=== PATIENT | male | born 1990 | race Hispanic/Latino ===

== ENCOUNTER 2018-10-04 01:02 | Emergency (ER) | payer SELFPAY ==
[2018-10-04] MEDS ORDERED: DEXAMETHASONE 4 MG TAB ONE (01:48)
[2018-10-04] MEDS ORDERED: WATER FOR INJ,STERILE 10 ML ONE (01:49)
[2018-10-04] MEDS ORDERED: CEFTRIAXONE 1000 MG/VIAL ONE (01:49)
[2018-10-04] MEDS ORDERED: HYDROCODONE/APAP 10/325 TAB ONE (01:49)
--- NOTE | 2018-10-04 02:22 | EDPHYS ---
Physician Documentation [facility] Name: Zeyad Alfonso Age: 28 yrs Sex: Male : 1990 Arrival Date: 10/04/2018 Time: 01:05 Bed 13 Private MD: ED Physician Domo Bertrand HPI: 10/04 01:56 This 28 yrs old Male presents to ER via Ambulatory with complaints of Ear Pain.snw 01:56 The patient presents with pain, that is acute. The complaints affect the left ear. snw Onset: The symptoms/episode began/occurred suddenly, 1 week(s) ago, and became worse today, and became persistent. Associated signs and symptoms: The patient has no apparent associated signs or symptoms. Severity of symptoms: At their worst the symptoms were moderate. The patient has not experienced similar symptoms in the past. The patient has not recently seen a physician. Historical: - Allergies: 01:05 No Known Allergies; cc3 - PMHx: 01:05 Hypertension; cc3 - PSHx: 01:05 jaw surgery; cc3 - Immunization history:: Adult Immunizations unknown. - Social history:: Smoking status: Patient uses tobacco products, smokes one pack cigarettes per day. - Ebola Screening: : No symptoms or risks identified at this time. ROS: 01:56 Constitutional: Negative for fever, chills, and weight loss, Eyes: Negative for injury, snw pain, redness, and discharge, ENT: Negative for injury and discharge, Positive for severe left ear pain Neck: Negative for injury, pain, and swelling, Cardiovascular: Negative for chest pain, palpitations, and edema, Respiratory: Negative for shortness of breath, cough, wheezing, and pleuritic chest pain, Abdomen/GI: Negative for abdominal pain, nausea, vomiting, diarrhea, and constipation, Back: Negative for injury and pain, : Negative for injury, bleeding, discharge, and swelling, MS/Extremity: Negative for injury and deformity, Skin: Negative for injury, rash, and discoloration, Neuro: Negative for headache, weakness, numbness, tingling, and seizure. Exam: 01:56 Constitutional: This is a well developed, well nourished patient who is awake, alert, snw and in no acute distress. Head/Face: Normocephalic, atraumatic. Eyes: Pupils equal round and reactive to light, extra-ocular motions intact. Lids and lashes normal. Conjunctiva and sclera are non-icteric and not injected. Cornea within normal limits. Periorbital areas with no swelling, redness, or edema. Neck: Trachea midline, no thyromegaly or masses palpated, and no cervical lymphadenopathy. Supple, full range of motion without nuchal rigidity, or vertebral point tenderness. No Meningismus. Chest/axilla: Normal chest wall appearance and motion. Nontender with no deformity. No lesions are appreciated. Cardiovascular: Regular rate and rhythm with a normal S1 and S2. No gallops, murmurs, or rubs. Normal PMI, no JVD. No pulse deficits. Respiratory: Lungs have equal breath sounds bilaterally, clear to auscultation and percussion. No rales, rhonchi or wheezes noted. No increased work of breathing, no retractions or nasal flaring. Abdomen/GI: Soft, non-tender, with normal bowel sounds. No distension or tympany. No guarding or rebound. No evidence of tenderness throughout. Back: No spinal tenderness. No costovertebral tenderness. Full range of motion. Skin: Warm, dry with normal turgor. Normal color with no rashes, no lesions, and no evidence of cellulitis. MS/ Extremity: Pulses equal, no cyanosis. Neurovascular intact. Full, normal range of motion. Neuro: Awake and alert, GCS 15, oriented to person, place, time, and situation. Cranial nerves II-XII grossly intact. Motor strength 5/5 in all extremities. Sensory grossly intact. Cerebellar exam normal. Normal gait. 01:56 ENT: External ear(s): are unremarkable, Ear canal(s): are normal, TM's: erythema, that is marked, on the left, erythema to right TM moderate, Nose: is normal, Mouth: is normal, Posterior pharynx: is normal, Voice: is normal. Vital Signs: 01:05 BP 166 / 105; Pulse 87; Resp 17 S; Temp 99(O); Pulse Ox 98% on R/A; Weight 89.36 kg cc3 (R); Height 5 ft. 7 in. (170.18 cm) (R); Pain 10/10; 02:15 BP 147 / 107; Pulse 72; Resp 18 S; Pulse Ox 98% on R/A; cc3 01:05 Body Mass Index 30.85 (89.36 kg, 170.18 cm) cc3 MDM: 01:23 Patient medically screened. snw 02:27 Data reviewed: vital signs, nurses notes. Data interpreted: Pulse oximetry: on room air snw is 98 %. Interpretation: normal. Counseling: I had a detailed discussion with the patient and/or guardian regarding: the historical points, exam findings, and any diagnostic results supporting the discharge/admit diagnosis, the need for outpatient follow up, to return to the emergency department if symptoms worsen or persist or if there are any questions or concerns that arise at home. Special discussion: Based on the history and exam findings, there is no indication for further emergent testing or inpatient evaluation. I discussed with the patient/guardian the need to see the ENT specialist for further evaluation of the symptoms. Administered Medications: 01:40 Drug: Motley 10 mg-325 mg 1 tabs Route: PO; cc3 02:30 Follow up: Response: No adverse reaction; Pain is decreased cc3 01:40 Drug: Decadron 8 mg Route: PO; cc3 02:30 Follow up: Response: No adverse reaction cc3 01:45 Drug: Rocephin (cefTRIAXone) 1 grams Route: IM; Site: right gluteus; cc3 02:30 Follow up: Response: No adverse reaction cc3 Disposition: 07:48 Co-signature as Attending Physician, Domo Bertrand MD I agree with the assessment and wa plan of care. Disposition: 10/04/18 02:22 Discharged to Home. Impression: Acute serous otitis media, bilateral, Essential (primary) hypertension. - Condition is Stable. - Discharge Instructions: Otitis Media, Adult, Hypertension, Managing Your Hypertension. - Prescriptions for Augmentin 875- 125 mg Oral Tablet - take 1 tablet by ORAL route every 12 hours for 10 days; 20 tablet. Diclofenac Sodium 75 mg Oral Tablet, Delayed Release (E.C.) - take 1 tablet by ORAL route 2 times per day; 16 tablet. Ultram 50 mg Oral Tablet - take 1 tablet by ORAL route every 6 hours As needed; 16 tablet. - Work release form, Medication Reconciliation Form, Thank You Letter, Antibiotic Education, Prescription Opioid Use form. - Follow up: Private Physician; When: 2 - 3 days; Reason: Recheck today's complaints, Continuance of care, Re-evaluation by your physician. Follow up: Emergency Department; When: As needed; Reason: Worsening of condition. Signatures: Flor Dee, SHERRY-C BASIC SCIENCES PROFESSOR-Csnw Domo Bertrand MD MD wa Cordel, Charlene cc3 Corrections: (The following items were deleted from the chart) 02:38 02:22 10/04/2018 02:22 Discharged to Home. Impression: Acute serous otitis media, cc3 bilateral; Essential (primary) hypertension. Condition is Stable. Forms are Medication Reconciliation Form, Thank You Letter, Antibiotic Education, Prescription Opioid Use. Follow up: Private Physician; When: 2 - 3 days; Reason: Recheck today's complaints, Continuance of care, Re-evaluation by your physician. Follow up: Emergency Department; When: As needed; Reason: Worsening of condition. snw
--- NOTE | 2018-10-04 02:22 | ER ---
Nurse's Notes [facility] Name: Zeyad Alfonso Age: 28 yrs Sex: Male : 1990 Arrival Date: 10/04/2018 Time: 01:05 Bed 13 Private MD: Diagnosis: Acute serous otitis media, bilateral;Essential (primary) hypertension Presentation: 10/04 01:05 Presenting complaint: Patient states: nontraumatic left ear pain since one week. cc3 Transition of care: patient was not received from another setting of care. Onset of symptoms is unknown. Risk Assessment: Do you want to hurt yourself or someone else? Patient reports no desire to harm self or others. Initial Sepsis Screen: Does the patient meet any 2 criteria? No. Patient's initial sepsis screen is negative. Does the patient have a suspected source of infection? No. Patient's initial sepsis screen is negative. Care prior to arrival: None. 01:05 Method Of Arrival: Ambulatory cc3 01:05 Acuity: JAZ 4 cc3 Triage Assessment: 01:05 General: Appears in no apparent distress. comfortable, Behavior is calm, cooperative, cc3 appropriate for age. Pain: Complains of pain in left ear. Pain: Quality of pain is described as aching. EENT: Reports pain in left ear. Neuro: Level of Consciousness is awake, alert, obeys commands, Oriented to person, place, time, situation, Appropriate for age. Cardiovascular: Denies chest pain, Patient's skin is warm and dry. Respiratory: Airway is patent Respiratory effort is even, unlabored, Respiratory pattern is regular, symmetrical. GI: Abdomen is round non-distended. : No signs and/or symptoms were reported regarding the genitourinary system. Derm: No signs and/or symptoms reported regarding the dermatologic system. Musculoskeletal: Circulation, motion, and sensation intact. Range of motion: intact in all extremities. Historical: - Allergies: 01:05 No Known Allergies; cc3 - PMHx: 01:05 Hypertension; cc3 - PSHx: 01:05 jaw surgery; cc3 - Immunization history:: Adult Immunizations unknown. - Social history:: Smoking status: Patient uses tobacco products, smokes one pack cigarettes per day. - Ebola Screening: : No symptoms or risks identified at this time. Screenin:05 Abuse screen: Denies threats or abuse. Denies injuries from another. Nutritional cc3 screening: No deficits noted. Tuberculosis screening: No symptoms or risk factors identified. Fall Risk Ambulatory Aid- None/Bed Rest/Nurse Assist (0 pts). Gait- Normal/Bed Rest/Wheelchair (0 pts) Mental Status- Oriented to own ability (0 pts). Assessment: 01:05 General: see triage assessment. cc3 02:35 Reassessment: Patient appears in no apparent distress at this time. Patient and/or cc3 family updated on plan of care and expected duration. Pain level reassessed. Patient is alert, oriented x 3, equal unlabored respirations, skin warm/dry/pink. ENIO Ray discharged the patient home with prescription given. No IV cannula in situ. Patient left ER vitally stable and ambulatory. Vital Signs: 01:05 BP 166 / 105; Pulse 87; Resp 17 S; Temp 99(O); Pulse Ox 98% on R/A; Weight 89.36 kg cc3 (R); Height 5 ft. 7 in. (170.18 cm) (R); Pain 10/10; 02:15 BP 147 / 107; Pulse 72; Resp 18 S; Pulse Ox 98% on R/A; cc3 01:05 Body Mass Index 30.85 (89.36 kg, 170.18 cm) cc3 ED Course: 01:05 Patient arrived in ED. es 01:05 Arm band placed on right wrist. Patient notified of wait time. cc3 01:05 Patient has correct armband on for positive identification. Bed in low position. Call cc3 light in reach. Side rails up X 1. Pulse ox on. NIBP on. 01:06 Ernestine Carlisle is Primary Nurse. cc3 01:18 Triage completed. cc3 01:19 Flor Dee FNP-C is PHCP. snw 01:19 Domo Bertrand MD is Attending Physician. snw 02:35 No provider procedures requiring assistance completed. Patient did not have IV access cc3 during this emergency room visit. Administered Medications: 01:40 Drug: Hostetter 10 mg-325 mg 1 tabs Route: PO; cc3 02:30 Follow up: Response: No adverse reaction; Pain is decreased cc3 01:40 Drug: Decadron 8 mg Route: PO; cc3 02:30 Follow up: Response: No adverse reaction cc3 01:45 Drug: Rocephin (cefTRIAXone) 1 grams Route: IM; Site: right gluteus; cc3 02:30 Follow up: Response: No adverse reaction cc3 Outcome: 02:22 Discharge ordered by . margareth 02:35 Discharged to home ambulatory. cc3 02:35 Condition: stable 02:35 Discharge instructions given to patient, Instructed on discharge instructions, follow up and referral plans. medication usage, Demonstrated understanding of instructions, follow-up care, medications, Prescriptions given X 3. 02:38 Patient left the ED. cc3 Signatures: Flor Dee, SHERRY-C SCHOOL PSYCHOLOGIST ASSISTANT-Csnw Mary Jane Quiñones Charlene cc3
== END 2018-10-04 02:38 | disposition home or self-care (01) ==
LOC: ER 01:02
DX: H65.03 Acute serous otitis media, bilateral (principal); I10 Essential (primary) hypertension; F17.210 Nicotine dependence, cigarettes, uncomplicated
CPT/HCPCS: 96372; 99283

== ENCOUNTER 2021-09-19 20:23 | Emergency (ER) | payer SELFPAY ==
[2021-09-19] MEDS ORDERED: FAMOTIDINE 20 MG/2 ML VIAL IV ONE (21:38)
[2021-09-19] MEDS ORDERED: ASPIRIN 81 MG CHEWABLE TABLET ONE (21:38)
[2021-09-19] MEDS ORDERED: NA CHLORIDE 0.9% 1,000 ML ONE (21:39)
[2021-09-19 21:59] LABS: Absolute Lymphocytes (CBC) 2.1 K/uL (0.7-4.9); Hematocrit 49.3 % (39.6-49.0); Lymphocytes % 22.1 % (15.3-44.8); MPV 8.5 fL (7.6-11.3); RBC Red Blood Cell Count 5.24 M/uL (4.33-5.43)
[2021-09-19 22:18] LABS: ALT/SGPT 111 U/L (12-78); AST/SGOT 51 U/L (15-37); Alkaline Phosphatase 84 U/L (45-117); BUN Blood Urea Nitrogen 6 mg/dL (7-18); Bicarbonate 27 mmol/L (21-32); Bilirubin Direct 0.1 mg/dL (0-0.2); Bilirubin Total 0.6 mg/dL (0.2-1.0); Glucose Level 101 mg/dL (74-106); Magnesium 2.4 mg/dL (1.8-2.4); Protein, Total 7.7 g/dL (6.4-8.2); Sodium Level 137 mmol/L (136-145)
[2021-09-19] MEDS ORDERED: METOPROLOL XL 50 MG TAB PO ONE (22:41)
[2021-09-19 22:50] LABS: Urine Blood Negative (Negative); Urine Glucose Negative (Negative); Urine Protein Negative (Negative)
[2021-09-19 23:04] LABS: NT PRO-BNP < 5 pg/mL (<125)
[2021-09-19 23:05] LABS: Protime INR 0.93
[2021-09-19 23:08] LABS: Barbiturates NEGATIVE (NEGATIVE); Benzodiazepines NEGATIVE (NEGATIVE); Cocaine NEGATIVE (NEGATIVE); METHAMPHETAM NEGATIVE (NEGATIVE); Methadone NEGATIVE (NEGATIVE); Opiates NEGATIVE (NEGATIVE); Phencyclidine NEGATIVE (NEGATIVE); THC Cannibis NEGATIVE (NEGATIVE)
--- NOTE | 2021-09-20 00:46 | ER ---
Nurse's Notes [facility] Name: Zeyad Alfonso Age: 31 yrs Sex: Male : 1990 Arrival Date: 09/19/2021 Time: 20:26 Bed 3 Private MD: Diagnosis: Essential (primary) hypertension;Chest pain, unspecified Presentation: 09/19 21:08 Chief complaint: Patient states: Feels like right hand was going numb and pressure to st1 the right shoulder which began about 45 minutes ago. Coronavirus screen: Vaccine status: Patient reports being unvaccinated. Client denies travel out of the [place] in the last 14 days. Risk Assessment: Do you want to hurt yourself or someone else? Patient reports no desire to harm self or others. Onset of symptoms was September 19, 2021. 21:08 Method Of Arrival: Ambulatory st1 21:08 Acuity: JAZ 3 st1 21:59 Ebola Screen: No symptoms or risks identified at this time. Initial Sepsis Screen: Does lg3 the patient meet any 2 criteria? No. Patient's initial sepsis screen is negative. Does the patient have a suspected source of infection? No. Patient's initial sepsis screen is negative. Triage Assessment: 21:11 General: Appears in no apparent distress. comfortable, Behavior is calm, cooperative. st1 Pain: Denies pain. Historical: - Allergies: 21:11 No Known Allergies; st1 - PMHx: 21:11 Hypertension; st1 - PSHx: 21:11 jaw; st1 - Immunization history:: Adult Immunizations not immunized. - Social history:: Smoking status: Patient reports the use of cigarette tobacco products, smokes one pack cigarettes per day. Patient uses alcohol, Patient/guardian denies using street drugs, IV drugs. - Family history:: not pertinent. Screenin:43 Abuse screen: Denies threats or abuse. Denies injuries from another. Nutritional lg3 screening: No deficits noted. Tuberculosis screening: No symptoms or risk factors identified. Fall Risk None identified. Assessment: 21:43 General: Appears in no apparent distress. comfortable, Behavior is calm, cooperative. lg3 Pain: Denies pain. Complains of pain in right hand and right shoulder Quality of pain is described as numbness. Neuro: No deficits noted. Level of Consciousness is awake, alert, obeys commands, Oriented to person, place, time, situation, Automobile Assembly Supervisor are equal bilaterally Moves all extremities. Gait is steady, Speech is normal. Cardiovascular: No deficits noted. Capillary refill < 3 seconds Clubbing of nail beds is absent JVD is absent Patient's skin is warm and dry. Respiratory: No deficits noted. Airway is patent Trachea midline Respiratory effort is even, unlabored, Respiratory pattern is regular, symmetrical. GI: No deficits noted. No signs and/or symptoms were reported involving the gastrointestinal system. Abdomen is round non-distended. : No deficits noted. No signs and/or symptoms were reported regarding the genitourinary system. EENT: No deficits noted. No signs and/or symptoms were reported regarding the EENT system. Derm: No deficits noted. No signs and/or symptoms reported regarding the dermatologic system. Skin is intact, is healthy with good turgor, Skin is dry. Musculoskeletal: No deficits noted. No signs and/or symptoms reported regarding the musculoskeletal system. Circulation, motion, and sensation intact. Range of motion: intact in all extremities. Vital Signs: 21:08 BP 149 / 96; Pulse 86; Resp 20; Temp 98.4; Pulse Ox 99% on R/A; Weight 95.25 kg; Height st1 5 ft. 7 in. (170.18 cm); Pain 0/10; 21:17 BP 133 / 88; Pulse 93; Pulse Ox 99% on R/A; lg3 09/20 00:09 BP 128 / 88; Pulse 75; Pulse Ox 98% on R/A; lg3 09/19 21:08 Body Mass Index 32.89 (95.25 kg, 170.18 cm) st1 ED Course: 09/19 20:26 Patient arrived in ED. ja2 21:11 Triage completed. st1 21:11 Arm band placed on right wrist. st1 21:15 Brody De La Rosa, DUTCH is Primary Nurse. as6 21:17 Santos Gaffney MD is Attending Physician. larissa 21:41 CBC with Automated Diff Sent. lg3 21:41 Basic Metabolic Panel Sent. lg3 21:42 D-Dimer Sent. lg3 21:42 Basic Metabolic Panel Sent. lg3 21:42 CBC with Diff Sent. lg3 21:42 LFT's Sent. lg3 21:42 Magnesium Sent. lg3 21:42 NT PRO-BNP Sent. lg3 21:42 PT-INR Sent. lg3 21:42 Troponin HS Sent. lg3 21:43 Patient has correct armband on for positive identification. Placed in gown. Bed in low lg3 position. Call light in reach. Side rails up X2. 21:43 Inserted saline lock: 20 gauge in right antecubital area, using aseptic technique. lg3 Blood collected. 22:12 XRAY Chest (1 view) In Process Unspecified. EDMS 22:50 UDS Sent. lg3 09/20 00:10 Troponin High Sensitivity Sent. lg3 00:10 Troponin HS Sent. lg3 00:46 Thee Goss MD is Referral Physician. [facility] 00:59 No provider procedures requiring assistance completed. IV discontinued, intact, as6 bleeding controlled, No redness/swelling at site. Pressure dressing applied. Administered Medications: 09/19 21:41 Drug: Pepcid (famotidine) 20 mg Route: IVP; Site: right antecubital; lg3 21:41 Follow up: Response: No adverse reaction lg3 21:41 Drug: NS 0.9% 1000 ml Route: IV; Rate: 1 bolus; Site: right antecubital; lg3 09/20 01:01 Follow up: Response: No adverse reaction; IV Status: Completed infusion; IV Intake: as6 1000ml 09/19 21:42 Drug: Aspirin Chewable Tablet 324 mg Route: PO; lg3 09/20 01:01 Follow up: Response: No adverse reaction as6 09/19 22:50 Drug: ToPROL XL (metoprolol SUCCINATE) 25 mg Route: PO; lg3 22:50 Follow up: Response: No adverse reaction lg3 Intake: 09/20 01:01 IV: 1000ml; Total: 1000ml. as6 Outcome: 00:46 Discharge ordered by . larissa 01:00 Discharged to home ambulatory. as6 01:00 Condition: stable 01:00 Discharge instructions given to patient, Instructed on discharge instructions, follow up and referral plans. medication usage, Demonstrated understanding of instructions, follow-up care, medications, Prescriptions given X 1. 01:00 Patient left the ED. as6 Signatures: Dispatcher [employer] EDSantos Hyde MD MD cha Gibson, Lacie, RN RN lg3 Wendy Scott Ashby, RN RN as6 Re Blue, RN RN st1 Corrections: (The following items were deleted from the chart) 00:58 09/19 21:42 Troponin High Sensitivity+C.LAB.BRZ drawn and sent. lg3 EDMS
--- NOTE | 2021-09-20 00:47 | EDPHYS ---
Physician Documentation [facility] Name: Zeyad Alfonso Age: 31 yrs Sex: Male : 1990 Arrival Date: 09/19/2021 Time: 20:26 Bed 3 Private MD: ED Physician Santos Gaffney HPI: 09/19 21:23 This 31 yrs old Male presents to ER via Ambulatory with complaints of Shoulder larissa Pain, High Blood Pressure. 21:23 The patient or guardian complains of pain, that is acute. right shoulder and right larissa clavicle. Context: The problem was sustained at home, resulted from an unknown reason, The patient reports no decreased range of motion. Onset: The symptoms/episode began/occurred 1 hour(s) ago. Modifying factors: the symptoms are alleviated by nothing. The symptoms are aggravated by nothing. Associated signs and symptoms: The patient has no apparent associated signs or symptoms. Severity of symptoms: At their worst the symptoms were mild, in the emergency department the symptoms are unchanged. The patient has not experienced similar symptoms in the past. Historical: - Allergies: 21:11 No Known Allergies; st1 - PMHx: 21:11 Hypertension; st1 - PSHx: 21:11 jaw; st1 - Immunization history:: Adult Immunizations not immunized. - Social history:: Smoking status: Patient reports the use of cigarette tobacco products, smokes one pack cigarettes per day. Patient uses alcohol, Patient/guardian denies using street drugs, IV drugs. - Family history:: not pertinent. ROS: 21:23 Constitutional: Negative for fever, chills, and weight loss, Eyes: Negative for injury, larissa pain, redness, and discharge, ENT: Negative for injury, pain, and discharge, Neck: Negative for injury, pain, and swelling, Respiratory: Negative for shortness of breath, cough, wheezing, and pleuritic chest pain, Abdomen/GI: Negative for abdominal pain, nausea, vomiting, diarrhea, and constipation, Back: Negative for injury and pain, : Negative for injury, bleeding, discharge, and swelling, MS/Extremity: Negative for injury and deformity, Skin: Negative for injury, rash, and discoloration, Neuro: Negative for headache, weakness, numbness, tingling, and seizure, Psych: Negative for depression, anxiety, suicide ideation, homicidal ideation, and hallucinations, Allergy/Immunology: Negative for hives, rash, and allergies, Endocrine: Negative for neck swelling, polydipsia, polyuria, polyphagia, and marked weight changes, Hematologic/Lymphatic: Negative for swollen nodes, abnormal bleeding, and unusual bruising. 21:23 Cardiovascular: Positive for chest pain, of the right clavicle and anterior aspect of right upper chest. Exam: 21:23 Constitutional: This is a well developed, well nourished patient who is awake, alert, larissa and in no acute distress. Head/Face: Normocephalic, atraumatic. Eyes: Pupils equal round and reactive to light, extra-ocular motions intact. Lids and lashes normal. Conjunctiva and sclera are non-icteric and not injected. Cornea within normal limits. Periorbital areas with no swelling, redness, or edema. ENT: Nares patent. No nasal discharge, no septal abnormalities noted. Tympanic membranes are normal and external auditory canals are clear. Oropharynx with no redness, swelling, or masses, exudates, or evidence of obstruction, uvula midline. Mucous membranes moist. Neck: Trachea midline, no thyromegaly or masses palpated, and no cervical lymphadenopathy. Supple, full range of motion without nuchal rigidity, or vertebral point tenderness. No Meningismus. Chest/axilla: Normal chest wall appearance and motion. Nontender with no deformity. No lesions are appreciated. Cardiovascular: Regular rate and rhythm with a normal S1 and S2. No gallops, murmurs, or rubs. Normal PMI, no JVD. No pulse deficits. Respiratory: Lungs have equal breath sounds bilaterally, clear to auscultation and percussion. No rales, rhonchi or wheezes noted. No increased work of breathing, no retractions or nasal flaring. Abdomen/GI: Soft, non-tender, with normal bowel sounds. No distension or tympany. No guarding or rebound. No evidence of tenderness throughout. Back: No spinal tenderness. No costovertebral tenderness. Full range of motion. Male : Normal genitalia with no discharge or lesions. Skin: Warm, dry with normal turgor. Normal color with no rashes, no lesions, and no evidence of cellulitis. MS/ Extremity: Pulses equal, no cyanosis. Neurovascular intact. Full, normal range of motion. Neuro: Awake and alert, GCS 15, oriented to person, place, time, and situation. Cranial nerves II-XII grossly intact. Motor strength 5/5 in all extremities. Sensory grossly intact. Cerebellar exam normal. Normal gait. Psych: Awake, alert, with orientation to person, place and time. Behavior, mood, and affect are within normal limits. 21:26 Musculoskeletal/extremity: DVT Exam: No signs of deep vein thrombosis. no pain, no larissa swelling, no tenderness, negative Homans' sign noted on exam, no appreciated bluish discoloration, no erythema, no increased warmth. 21:27 ECG was reviewed by the Attending Physician. [facility] 09/20 00:21 ECG was reviewed by the Attending Physician. [facility] Vital Signs: 09/19 21:08 BP 149 / 96; Pulse 86; Resp 20; Temp 98.4; Pulse Ox 99% on R/A; Weight 95.25 kg; Height st1 5 ft. 7 in. (170.18 cm); Pain 0/10; 21:17 BP 133 / 88; Pulse 93; Pulse Ox 99% on R/A; lg3 09/20 00:09 BP 128 / 88; Pulse 75; Pulse Ox 98% on R/A; lg3 09/19 21:08 Body Mass Index 32.89 (95.25 kg, 170.18 cm) st1 MDM: 09/19 21:17 Patient medically screened. [facility] 21:26 Differential diagnosis: tendonitis. Data reviewed: vital signs, nurses notes, lab test [facility] result(s), EKG, radiologic studies, CT scan, plain films. Data interpreted: kitchen hand: rate is 93 beats/min, rhythm is regular, Pulse oximetry: on room air is 99 %. Test interpretation: by ED physician or midlevel provider: ECG, plain radiologic studies. Counseling: I had a detailed discussion with the patient and/or guardian regarding: the historical points, exam findings, and any diagnostic results supporting the discharge/admit diagnosis, lab results, radiology results. 09/19 21:22 Order name: Basic Metabolic Panel [facility] 09/19 21:22 Order name: CBC with Diff [facility] 09/19 21:22 Order name: LFT's; Complete Time: 23:15 [facility] 09/19 21:22 Order name: Magnesium; Complete Time: 23:15 [facility] 09/19 21:22 Order name: NT PRO-BNP; Complete Time: 23:15 09/19 21:22 Order name: PT-INR; Complete Time: 23:15 09/19 21:22 Order name: Troponin HS; Complete Time: 23:15 09/19 21:22 Order name: D-Dimer; Complete Time: 23:15 09/19 21:22 Order name: UDS; Complete Time: 23:15 09/19 21:23 Order name: Basic Metabolic Panel; Complete Time: 23:15 EDMS 09/19 21:23 Order name: CBC with Automated Diff; Complete Time: 23:15 EDMS 09/19 22:50 Order name: Urine Dipstick-Ancillary; Complete Time: 23:15 EDMS 09/19 23:57 Order name: Troponin HS as6 09/19 21:22 Order name: XRAY Chest (1 view) 09/19 21:22 Order name: EKG; Complete Time: 21:23 09/19 21:22 Order name: Cardiac monitoring; Complete Time: 21:30 09/19 21:22 Order name: EKG - Nurse/Tech; Complete Time: 21:30 09/19 21:22 Order name: IV Saline Lock; Complete Time: 21:42 09/19 21:22 Order name: Labs collected and sent; Complete Time: 21:42 09/19 21:22 Order name: O2 Per Protocol; Complete Time: 21:30 09/19 21:22 Order name: O2 Sat Monitoring; Complete Time: 21:30 09/19 23:52 Order name: EKG; Complete Time: 23:53 09/19 23:52 Order name: EKG - Nurse/Tech; Complete Time: 00:10 09/19 23:58 Order name: Troponin High Sensitivity; Complete Time: 00:50 EDMS EC:27 Rate is 77 beats/min. Rhythm is regular. QRS Mora is Normal. VA interval is normal. QRS larissa interval is normal. QT interval is normal. No Q waves. T waves are Normal. No ST changes noted. Clinical impression: Normal ECG and No evidence of ischemia. Interpreted by me. Reviewed by me. 09/20 00:21 Rate is 78 beats/min. Rhythm is regular. QRS Mora is Normal. VA interval is normal. QRS larissa interval is normal. QT interval is normal. No Q waves. T waves are Normal. No ST changes noted. Clinical impression: Normal ECG and No evidence of ischemia. Interpreted by me. Reviewed by me. Administered Medications: 09/19 21:41 Drug: Pepcid (famotidine) 20 mg Route: IVP; Site: right antecubital; lg3 21:41 Follow up: Response: No adverse reaction lg3 21:41 Drug: NS 0.9% 1000 ml Route: IV; Rate: 1 bolus; Site: right antecubital; lg3 09/20 01:01 Follow up: Response: No adverse reaction; IV Status: Completed infusion; IV Intake: as6 1000ml 09/19 21:42 Drug: Aspirin Chewable Tablet 324 mg Route: PO; lg3 09/20 01:01 Follow up: Response: No adverse reaction as6 09/19 22:50 Drug: ToPROL XL (metoprolol SUCCINATE) 25 mg Route: PO; lg3 22:50 Follow up: Response: No adverse reaction lg3 Disposition Summary: 09/20/21 00:46 Discharge Ordered Location: Home larissa Problem: new larissa Symptoms: have improved larissa Condition: Stable larissa Diagnosis - Essential (primary) hypertension larissa - Chest pain, unspecified larissa Followup: larissa - With: Private Physician - When: 2 - 3 days - Reason: Recheck today's complaints, Continuance of care, Re-evaluation by your physician Followup: larissa - With: - When: 2 - 3 days - Reason: Recheck today's complaints, Re-evaluation by your physician Discharge Instructions: - Discharge Summary Sheet larissa - Nonspecific Chest Pain, Adult larissa - Hypertension, Adult larissa - Nonspecific Chest Pain, Adult, [id number] larissa - Hypertension, Adult, [id number]-[id number] larissa - How to Take Your Blood Pressure, [id number] larissa - Aspirin and Your Heart larissa - Managing Your Hypertension larissa Forms: - Medication Reconciliation Form larissa - Thank You Letter larissa - Antibiotic Education larissa - Prescription Opioid Use larissa Prescriptions: - Toprol XL 25 mg Oral Tablet - take 1 tablet by ORAL route once daily; 20 tablet; Refills: 0, Product larissa Selection Permitted Signatures: Dispatcher [employer] EDSantos Hyde MD MD cha Gibson, Lacie, RN RN lg3 Re Blue RN RN st1 Brody De La Rosa RN as6 Corrections: (The following items were deleted from the chart) 09/20 00:58 09/19 21:41 Troponin High Sensitivity+C.ATILIO.GHAZALZ ordered. EDMS EDMS
[2021-09-20 01:23] VITALS: TEMP 98.4
[2021-09-20 01:30] VITALS: BP 128/88; O2SAT 98
--- NOTE | 2021-09-20 08:44 | RAD REPORT ---
EXAM DESCRIPTION: RAD - Chest Single View - 09/19/2021 10:11 pm CLINICAL HISTORY: CHEST PAIN COMPARISON: 09/07/2021 portable chest TECHNIQUE: AP portable chest image was obtained 09/19/2021 10:11 pm . FINDINGS: Lungs are clear. Interstitial pattern matches comparison. Heart and vasculature are normal . No measurable pleural effusion and no pneumothorax. No acute bony abnormality seen. No acute aortic findings suspected. IMPRESSION: No acute cardiopulmonary process. No significant change from comparison study.
--- NOTE | 2021-09-20 10:15 | EKG ---
Test Date: 2021-09-20 Test Time: 00:04:20 Network Applications Specialist: MEASUREMENT RESULTS: Intervals: Rate: 78 DC: 142 QRSD: 82 QT: 364 QTc: 414 [place]: P: 12 DC: 142 QRS: 43 T: 10 INTERPRETIVE STATEMENTS: Normal sinus rhythm Normal ECG Compared to ECG 09/19/2021 21:23:00 No significant changes Electronically Signed On 09-20-21 10:14:22 PACKAGER HEAD by Thee Goss
--- NOTE | 2021-09-20 10:15 | EKG ---
Test Date: 2021-09-19 Test Time: 21:23:00 Tool Machine Shop Supervisor: MEASUREMENT RESULTS: Intervals: Rate: 77 NC: 140 QRSD: 82 QT: 346 QTc: 391 [place]: P: 17 NC: 140 QRS: 49 T: 8 INTERPRETIVE STATEMENTS: Normal sinus rhythm Normal ECG Compared to ECG 09/07/2021 13:12:17 Sinus tachycardia no longer present Electronically Signed On 09-20-21 10:14:27 [employer] WE[employer]HER by Thee Goss
== END 2021-09-20 01:00 | disposition home or self-care (01) ==
LOC: ER 20:23
DX: R07.9 Chest pain, unspecified (principal); I10 Essential (primary) hypertension
CPT/HCPCS: 36415; 71045; 80048; 80076; 80307; 81003; 83735; 83880; 84484; 85025; 85379; 85610; 93005; 96361; 96374; 99284; J7030

== ENCOUNTER 2021-10-09 17:21 | Emergency (ER) | payer SELFPAY ==
[2021-10-09 18:12] LABS: Absolute Lymphocytes (CBC) 2.1 K/uL (0.7-4.9); Hematocrit 48.7 % (39.6-49.0); MPV 8.3 fL (7.6-11.3); RBC Red Blood Cell Count 5.19 M/uL (4.33-5.43)
[2021-10-09 18:20] LABS: Protime INR 0.99
[2021-10-09 18:32] LABS: ALT/SGPT 116 U/L (12-78); AST/SGOT 46 U/L (15-37); Albumin 4.3 g/dL (3.4-5.0); Alkaline Phosphatase 71 U/L (45-117); BUN Blood Urea Nitrogen 7 mg/dL (7-18); Bicarbonate 24 mmol/L (21-32); Bilirubin Direct 0.1 mg/dL (0-0.2); Bilirubin Total 0.6 mg/dL (0.2-1.0); Glucose Level 107 mg/dL (74-106); NT PRO-BNP 8 pg/mL (<125); Potassium 3.4 mmol/L (3.5-5.1); Protein, Total 8.2 g/dL (6.4-8.2); Sodium Level 137 mmol/L (136-145)
[2021-10-09 18:41] LABS: Troponin High Sensitivity < 3.00 pg/mL (<58.9)
--- NOTE | 2021-10-09 18:59 | RAD REPORT ---
EXAM DESCRIPTION: CT - Head Brain Wo Cont - 10/09/2021 6:37 pm CLINICAL HISTORY: DIZZINESS COMPARISON: None TECHNIQUE: Axial 5 mm thick images of the head were obtained without IV contrast. All CT scans are performed using dose optimization technique as appropriate and may include automated exposure control or mA/KV adjustment according to patient size. FINDINGS: No intracranial hemorrhage, mass, edema or shift of mid-line structures. No acute infarcti on changes seen. No abnormal extra-axial fluid collections. Ventricles are normal. No acute paranasal sinus finding. No globe or orbital content abnormality. Right-side mastoid air tony ls and middle ear are unremarkable. Mucosal thickening or possibly small amount of fluid present in t he left middle ear. No acute bony findings. IMPRESSION: No intracranial abnormality identifiable. Small amount of mucosal thickening or fluid in the left middle ear.
--- NOTE | 2021-10-09 19:00 | RAD REPORT ---
EXAM DESCRIPTION: RAD - Chest Single View - 10/09/2021 6:24 pm CLINICAL HISTORY: Dizziness, hypertension COMPARISON: 09/19/2021 TECHNIQUE: AP portable chest image was obtained 10/09/2021 6:24 pm . FINDINGS: Lungs are clear. Heart and vasculature are normal. No measurable pleural effusion and no p neumothorax. No acute bony abnormality seen. No acute aortic findings suspected. IMPRESSION: No acute cardiopulmonary process. No significant change from comparison study.
--- NOTE | 2021-10-09 20:07 | ER ---
Nurse's Notes [facility] Name: Zeyad Alfonso Age: 31 yrs Sex: Male : 1990 Arrival Date: 10/09/2021 Time: 17:25 Bed 15 Private MD: Diagnosis: Dizziness and giddiness;Otitis media, unspecified, left ear;Essential (primary) hypertension Presentation: 10/09 17:26 Chief complaint: Patient states: dizziness d/t high blood pressure. Coronavirus screen: ic1 Vaccine status: Patient reports being unvaccinated. Ebola Screen: No symptoms or risks identified at this time. Initial Sepsis Screen: Does the patient meet any 2 criteria? No. Patient's initial sepsis screen is negative. Does the patient have a suspected source of infection? No. Patient's initial sepsis screen is negative. Risk Assessment: Do you want to hurt yourself or someone else? Patient reports no desire to harm self or others. Onset of symptoms was October 09, 2021. 17:26 Method Of Arrival: EMS ic1 17:26 Acuity: JAZ 3 ic1 Triage Assessment: 17:28 General: Appears in no apparent distress. comfortable, Behavior is calm, cooperative. ic1 Pain: Denies pain. EENT: No deficits noted. Neuro: Level of Consciousness is awake, alert, obeys commands, Oriented to person, place, time, situation. Cardiovascular: Reports lightheadedness, Denies chest pain. Respiratory: Denies cough, shortness of breath. GI: No deficits noted. : No deficits noted. Derm: No deficits noted. Musculoskeletal: No deficits noted. Historical: - Allergies: 17:28 No Known Allergies; ic1 - PMHx: 17:28 Hypertension; ic1 - PSHx: 17:28 jaw; ic1 - Immunization history:: Adult Immunizations up to date. - Social history:: Smoking status: Patient reports the use of cigarette tobacco products, smokes one pack cigarettes per day. Screenin:29 Abuse screen: Denies threats or abuse. Denies injuries from another. Nutritional ic1 screening: No deficits noted. Tuberculosis screening: No symptoms or risk factors identified. Fall Risk None identified. Assessment: 17:29 Reassessment: see triage. ic1 21:34 Reassessment: Patient and/or family updated on plan of care and expected duration. Pain ll3 level reassessed. Patient is alert, oriented x 3, equal unlabored respirations, skin warm/dry/pink. Provider ordered medication at discharge, medicated as ordered. Vital Signs: 17:26 BP 151 / 107; Pulse 76; Resp 18; Temp 98.3(O); Pulse Ox 96% on R/A; ic1 18:20 BP 149 / 105 Supine; Pulse 80; ic1 18:20 BP 148 / 111 Sitting; Pulse 86; ic1 18:20 BP 149 / 111; Pulse 87; ic1 20:39 BP 149 / 105; Pulse 80; Resp 18; Pulse Ox 97% on R/A; ll3 21:34 BP 158 / 111; Pulse 78; Resp 16; Pulse Ox 98% on R/A; ll3 ED Course: 17:25 Patient arrived in ED. ic1 17:26 Tiffanie Paige RN is Primary Nurse. ic1 17:28 Triage completed. ic1 17:28 Arm band placed on. ic1 17:29 Patient has correct armband on for positive identification. Bed in low position. Call ic1 light in reach. Side rails up X2. 17:29 No provider procedures requiring assistance completed. ic1 17:31 Christopher Arreola NP is PHCP. pm1 17:31 Dov Cote MD is Attending Physician. pm1 18:24 XRAY Chest (1 view) In Process Unspecified. EDMS 18:37 CT Head Brain wo Cont In Process Unspecified. EDMS 18:57 EKG done, by ED staff, reviewed by Christopher Arreola NP. em1 18:58 Inserted saline lock: 20 gauge in right antecubital area, using aseptic technique. ic1 Blood collected. 19:21 Primary Nurse role handed off by Tiffanie Paige, DUTCH eb 21:35 IV discontinued, intact, bleeding controlled, No redness/swelling at site. Pressure ll3 dressing applied. Administered Medications: 20:35 Drug: Meclizine 50 mg Route: PO; ll3 21:33 Follow up: Response: No adverse reaction ll3 20:36 Drug: Rocephin (cefTRIAXone) 1 grams Route: IV; Rate: calculated rate; Site: right ll3 antecubital; 21:34 Follow up: Response: No adverse reaction; IV Status: Completed infusion; IV Intake: [id number] 21:07 Drug: ToPROL XL (metoprolol SUCCINATE) 25 mg Route: PO; ll3 21:33 Follow up: Response: No adverse reaction; No change in condition ll3 Intake: 21:34 IV: 50ml; Total: 50ml. ll3 Outcome: 20:07 Discharge ordered by . pm1 21:35 Discharged to home ambulatory. ll3 21:35 Condition: stable 21:35 Discharge instructions given to patient, Instructed on discharge instructions, follow up and referral plans. medication usage, Demonstrated understanding of instructions, follow-up care, medications, Prescriptions given X 2. 21:36 Patient left the ED. ll3 Signatures: Dispatcher [employer] EDMS Cosmo Warner em1 Christopher Arreola, [employer]ILY [employer] MEDIATOR pm1 Jazmyn Ying Lynsea, RN RN ll3 Tiffanie Paige RN RN ic1
--- NOTE | 2021-10-09 20:08 | EDPHYS ---
Physician Documentation [facility] Name: Zeyad Alfonso Age: 31 yrs Sex: Male : 1990 Arrival Date: 10/09/2021 Time: 17:25 Bed 15 Private MD: ED Physician Dov Cote HPI: 10/09 17:40 This 31 yrs old Male presents to ER via EMS with complaints of dizziness. pm1 17:40 The patient presents with dizziness. Onset: The symptoms/episode began/occurred today. pm1 Context: occurred at home, occurred while the patient was change in position from sitting to lying. just prior to the episode the patient experienced no apparent symptoms. Modifying factors: The symptoms are alleviated by holding head still. Associated signs and symptoms: Pertinent positives: right hand numbness that resolved and right biceps pain, Pertinent negatives: abdominal pain, chest pain, nausea, shortness of breath, vomiting. Severity of symptoms: in the emergency department the symptoms have resolved. Patient's baseline: Neuro: alert and fully oriented, Motor: no deficits, Ambulation: walks without assistance, Speech: normal. The patient has not experienced similar symptoms in the past. The patient has not recently seen a physician. Historical: - Allergies: 17:28 No Known Allergies; ic1 - PMHx: 17:28 Hypertension; ic1 - PSHx: 17:28 jaw; ic1 - Immunization history:: Adult Immunizations up to date. - Social history:: Smoking status: Patient reports the use of cigarette tobacco products, smokes one pack cigarettes per day. ROS: 17:40 Constitutional: Negative for fever, chills, and weight loss, Cardiovascular: Negative pm1 for chest pain, palpitations, and edema, Respiratory: Negative for shortness of breath, cough, wheezing, and pleuritic chest pain. 17:40 Back: Negative for injury and pain, MS/Extremity: Negative for injury and deformity. pm1 17:40 Abdomen/GI: Negative for abdominal pain, nausea, vomiting, diarrhea, and constipation, Skin: Negative for injury, rash, and discoloration. 17:40 Neuro: Positive for dizziness, Negative for headache. Exam: 17:40 Constitutional: This is a well developed, well nourished patient who is awake, alert, pm1 and in no acute distress. Head/Face: Normocephalic, atraumatic. 17:40 Back: No spinal tenderness. No costovertebral tenderness. Full range of motion. Skin: Warm, dry with normal turgor. Normal color with no rashes, no lesions, and no evidence of cellulitis. MS/ Extremity: Pulses equal, no cyanosis. Neurovascular intact. Full, normal range of motion. 17:40 Eyes: Conjunctiva: no acute changes, no injection, Sclera: no acute changes, icterus, is not appreciated, horizontal nystagmus present bilaterally. 17:40 ENT: Exam is negative for acute changes, External ear(s): no acute changes, Ear canal(s): no acute changes, TM's: no acute changes. 17:40 Cardiovascular: Exam negative for acute changes, Rate: normal, Rhythm: regular, Pulses: no pulse deficits are appreciated, Heart sounds: normal, Edema: is not appreciated. 17:40 Respiratory: Exam negative for acute changes, respiratory distress, shortness of breath, Breath sounds: are clear throughout. 17:40 Neuro: Exam negative for acute changes, Orientation: is normal, Mentation: is normal, Cranial nerves: CN II- XII are normal as tested, Cerebellar function: normal finger to nose testing, Motor: moves all fours, strength is normal, strength is 5/5 in all extremities, Sensation: no obvious gross deficits. Vital Signs: 17:26 BP 151 / 107; Pulse 76; Resp 18; Temp 98.3(O); Pulse Ox 96% on R/A; ic1 18:20 BP 149 / 105 Supine; Pulse 80; ic1 18:20 BP 148 / 111 Sitting; Pulse 86; ic1 18:20 BP 149 / 111; Pulse 87; ic1 20:39 BP 149 / 105; Pulse 80; Resp 18; Pulse Ox 97% on R/A; ll3 21:34 BP 158 / 111; Pulse 78; Resp 16; Pulse Ox 98% on R/A; ll3 MDM: 17:31 Patient medically screened. pm1 20:05 Data reviewed: vital signs. Data interpreted: Pulse oximetry: on room air is 96 %. pm1 Interpretation: normal. 20:06 Counseling: I had a detailed discussion with the patient and/or guardian regarding: the pm1 historical points, exam findings, and any diagnostic results supporting the discharge/admit diagnosis, lab results, radiology results, the need for outpatient follow up, a neurologist, to return to the emergency department if symptoms worsen or persist or if there are any questions or concerns that arise at home. 10/09 17:40 Order name: Basic Metabolic Panel; Complete Time: 18:43 pm1 10/09 17:40 Order name: CBC with Diff; Complete Time: 18:43 pm1 10/09 17:40 Order name: LFT's; Complete Time: 18:43 pm1 10/09 17:40 Order name: Magnesium; Complete Time: 18:43 pm1 10/09 17:40 Order name: NT PRO-BNP; Complete Time: 18:43 pm1 10/09 17:40 Order name: PT-INR; Complete Time: 18:43 pm1 10/09 17:40 Order name: Troponin HS; Complete Time: 18:43 pm1 10/09 17:40 Order name: XRAY Chest (1 view); Complete Time: 19:08 pm1 10/09 17:40 Order name: EKG; Complete Time: 17:41 pm1 10/09 17:40 Order name: Cardiac monitoring pm1 10/09 17:40 Order name: CT Head Brain wo Cont; Complete Time: 19:08 pm1 10/09 17:40 Order name: EKG - Nurse/Tech; Complete Time: 18:55 pm1 10/09 17:40 Order name: IV Saline Lock; Complete Time: 18:48 pm1 10/09 17:40 Order name: Labs collected and sent; Complete Time: 18:48 pm1 10/09 17:40 Order name: O2 Per Protocol; Complete Time: 18:48 pm1 10/09 17:40 Order name: O2 Sat Monitoring; Complete Time: 18:48 pm1 10/09 17:40 Order name: Orthostatic Blood Pressure; Complete Time: 18:13 pm1 Administered Medications: 20:35 Drug: Meclizine 50 mg Route: PO; ll3 21:33 Follow up: Response: No adverse reaction ll3 20:36 Drug: Rocephin (cefTRIAXone) 1 grams Route: IV; Rate: calculated rate; Site: right ll3 antecubital; 21:34 Follow up: Response: No adverse reaction; IV Status: Completed infusion; IV Intake: [id number] 21:07 Drug: ToPROL XL (metoprolol SUCCINATE) 25 mg Route: PO; ll3 21:33 Follow up: Response: No adverse reaction; No change in condition ll3 Disposition Summary: 10/09/21 20:07 Discharge Ordered Location: Home pm1 Problem: new pm1 Symptoms: have improved pm1 Condition: Stable pm1 Diagnosis - Dizziness and giddiness pm1 - Otitis media, unspecified, left ear pm1 - Essential (primary) hypertension pm1 Followup: pm1 - With: Emergency Department - When: As needed - Reason: Worsening of condition Followup: pm1 - With: Private Physician - When: 2 - 3 days - Reason: Recheck today's complaints, Continuance of care, Re-evaluation by your physician Discharge Instructions: - Discharge Summary Sheet pm1 - Dizziness pm1 - Otitis Media, Adult pm1 - Hypertension, Adult pm1 - How to Take Your Blood Pressure, [id number] pm1 - DASH Eating Plan pm1 - Managing Your Hypertension pm1 Forms: - Medication Reconciliation Form pm1 - Thank You Letter pm1 - Antibiotic Education pm1 - Prescription Opioid Use pm1 Prescriptions: - Amoxicillin 500 mg Oral Capsule - take 1 capsule by ORAL route every 8 hours for 10 days; 30 tablet; Refills: 0, pm1 Product Selection Permitted - Meclizine 25 mg Oral Tablet - take 1 tablet by ORAL route every 8 hours As needed; 30 tablet; Refills: 0, pm1 Product Selection Permitted Addendum: 10/11/2021 08:14 Co-signature as Attending Physician, Dov Cote MD I agree with the assessment and r n plan of care. Attestation: The patient's history, exam findings, diagnostics, and a summary of any interventions or procedures was reviewed in detail with Christopher Arreola NP. Signatures: Dispatcher [employer] Dov Mensah MD MD rn Marinas, Patrick, NP FOREPART LASTER pm1 Viola Obrien RN RN ll3 Tiffanie Paige RN RN ic1
[2021-10-09] MEDS ORDERED: CEFTRIAXONE 1000 MG/VIAL ONE (20:19)
[2021-10-09] MEDS ORDERED: NA CHLORIDE 0.9% 50 ML ONE (20:19)
[2021-10-09] MEDS ORDERED: MECLIZINE HCL 12.5 MG TAB ONE ×2 (20:19→20:45)
[2021-10-09] MEDS ORDERED: METOPROLOL XL 50 MG TAB PO ONE (21:08)
[2021-10-09 22:30] VITALS: TEMP 98.3
[2021-10-09 22:34] VITALS: BP 158/111; O2SAT 98
== END 2021-10-09 21:36 | disposition home or self-care (01) ==
LOC: ER 17:21
DX: H66.92 Otitis media, unspecified, left ear (principal); I10 Essential (primary) hypertension; F17.210 Nicotine dependence, cigarettes, uncomplicated
CPT/HCPCS: 36415; 70450; 71045; 80048; 80076; 83735; 83880; 84484; 85025; 85610; 93005; 96365; 99284; J8597

== ENCOUNTER 2021-11-12 18:54 | Emergency (ER) | payer SELFPAY ==
--- NOTE | 2021-11-12 19:38 | ER ---
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 I ab2 think my BP is high but I don't have a thing to check it. I took an extra metoprolol before I came to help." Pt c/o headache and SOB. Pt denies dizziness right now. Coronavirus screen: Vaccine status: Patient reports being unvaccinated. Client denies travel out of the [place] in the last 14 days. At this time, the client does not indicate any symptoms associated with coronavirus-19. Ebola Screen: Patient negative for fever greater than or equal to 101.5 degrees Fahrenheit, and additional compatible Ebola Virus Disease symptoms Patient denies exposure to infectious person. Patient denies travel to an Ebola-affected area in the 21 days before illness onset. No symptoms or risks identified at this time. Initial Sepsis Screen: Does the patient meet any 2 criteria? No. Patient's initial sepsis screen is negative. Does the patient have a suspected source of infection? No. Patient's initial sepsis screen is negative. Risk Assessment: Do you want to hurt yourself or someone else? Patient reports no desire to harm self or others. Onset of symptoms is unknown. 19:04 Method Of Arrival: Ambulatory ab2 19:04 Acuity: JAZ 3 ab2 Triage Assessment: 19:07 General: Appears in no apparent distress. Behavior is calm, cooperative, appropriate ab2 for age. Pain: Complains of pain in back of head Pain currently is 2 out of 10 on a pain scale. Neuro: Level of Consciousness is awake, alert, obeys commands, Oriented to person, place, time, situation, Appropriate for age Digital Archivist are equal bilaterally Moves all extremities. Gait is steady, Speech is normal, Facial symmetry appears normal. Neuro: Reports headache. Cardiovascular: No deficits noted. Respiratory: No deficits noted. Airway is patent Respiratory effort is even, unlabored, Respiratory pattern is regular, symmetrical. GI: No deficits noted. No signs and/or symptoms were reported involving the gastrointestinal system. : No deficits noted. No signs and/or symptoms were reported regarding the genitourinary system. Derm: Skin is intact, Skin is pink, warm \\T\\ dry. Historical: - Allergies: 19:07 No Known Allergies; ab2 - PMHx: 19:07 Hypertension; ab2 - PSHx: 19:07 jaw; ab2 - Immunization history:: Adult Immunizations up to date. - Social history:: Smoking status: Patient reports the use of cigarette tobacco products, smokes one pack cigarettes per day. Screenin:36 Abuse screen: Denies threats or abuse. Denies injuries from another. Nutritional kd3 screening: No deficits noted. Tuberculosis screening: No symptoms or risk factors identified. Fall Risk None identified. Assessment: 19:35 General: Appears in no apparent distress. Behavior is calm, cooperative, appropriate kd3 for age. Pain: Complains of pain in back of head. Pain:. Neuro: Level of Consciousness is awake, alert, obeys commands, Oriented to person, place, time, situation, Digital Archivist are equal bilaterally Moves all extremities. Full function. Cardiovascular: Patient's skin is warm and dry. Rhythm is sinus rhythm. Respiratory: Airway is patent Trachea midline Respiratory effort is even, unlabored. Vital Signs: 19:04 BP 151 / 102; Pulse 81; Resp 18; Temp 98.0(TE); Pulse Ox 99% on R/A; Weight 94.35 kg; ab2 Height 5 ft. 7 in. (170.18 cm); Pain 3/10; 19:44 BP 154 / 97; Pulse 75; Resp 16; Pulse Ox 100% on R/A; kd3 19:04 Body Mass Index 32.58 (94.35 kg, 170.18 cm) ab2 ED Course: 19:00 Patient arrived in ED. kz 19:07 Triage completed. ab2 19:08 Arm band placed on right wrist. ab2 19:12 Kevin Torres DO is Attending Physician. ms3 19:13 Erin Triana, DUTCH is Primary Nurse. kd3 19:36 Patient has correct armband on for positive identification. 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 kd3 19:36 No provider procedures requiring assistance completed. Patient did not have IV access kd3 during this emergency room visit. Administered Medications: No medications were administered Outcome: 19:36 Discharged to home ambulatory. kd3 19:36 Condition: stable 19:36 Discharge instructions given to patient, Instructed on discharge instructions, follow kd3 up and referral plans. Demonstrated understanding of instructions, follow-up care. 19:37 Discharge ordered by . ms3 19:45 Patient left the ED. 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 ab2 I think my BP is high but I don't have a thing to check it. I took an extra metoprolol before I came to help." Pt c/o headache. Pt denies dizziness right now. ab2
[2021-11-12 20:29] VITALS: TEMP 98
[2021-11-12 20:31] VITALS: BP 154/97; O2SAT 100
--- NOTE | 2021-11-13 20:07 | EDPHYS ---
Physician Documentation [facility] Name: Zeyad Alfonso Age: 31 yrs Sex: Male : 1990 Arrival Date: 11/12/2021 Time: 19:00 Bed 19 Private MD: ED Physician Kevin Torres HPI: 11/12 19:46 This 31 yrs old Male presents to ER via Ambulatory with complaints of High ms3 Blood Pressure. 19:46 The patient has elevated blood pressure and discovered this at home. Onset: The ms3 symptoms/episode began/occurred today. Modifying factors: The symptoms are aggravated by Nothing, The symptoms are alleviated by Nothing. Associated signs and symptoms: Pertinent positives: headache, Pertinent negatives: chest pain, dizziness, lightheadedness, nausea, vomiting, weakness. Severity of symptoms: At its worst the blood pressure was moderate, in the emergency department the blood pressure is improved. 31-year-old male with past medical history of hypertension presents for elevated blood pressure that was noted earlier today. Patient states he developed a posterior headache that he rates a 4/10 described as aching. Patient states he has had similar headaches to this in the past. Patient denies nausea, vomiting, dizziness, chest pain, shortness of breath. Historical: - Allergies: 19:07 No Known Allergies; ab2 - PMHx: 19:07 Hypertension; ab2 - PSHx: 19:07 jaw; ab2 - Immunization history:: Adult Immunizations up to date. - Social history:: Smoking status: Patient reports the use of cigarette tobacco products, smokes one pack cigarettes per day. ROS: 19:46 Constitutional: Negative for fever, and chills. Eyes: Negative for injury, pain, ms3 redness, and discharge, ENT: Negative for injury, pain, and discharge, Neck: Negative for injury, pain, and swelling, Cardiovascular: Negative for chest pain, and palpitations. Respiratory: Negative for shortness of breath, cough, wheezing, and pleuritic chest pain, Abdomen/GI: Negative for abdominal pain, nausea, vomiting, diarrhea, and constipation, Back: Negative for injury and pain, MS/Extremity: Negative for injury and deformity, Skin: Negative for injury, rash, and discoloration. 19:46 Neuro: Positive for headache. 19:46 All other systems are negative. Exam: 19:32 ECG was reviewed by the Attending Physician. ms3 19:46 Constitutional: This is a well developed, well nourished patient who is awake, alert, ms3 and in no acute distress. Head/Face: Normocephalic, atraumatic. Eyes: Pupils equal round and reactive to light, extra-ocular motions intact. Lids and lashes normal. Conjunctiva and sclera are non-icteric and not injected. Periorbital areas with no swelling, redness, or edema. ENT: Nares patent. No nasal discharge, no septal abnormalities noted. Tympanic membranes are normal and external auditory canals are clear. Oropharynx with no redness, swelling, or masses, exudates, or evidence of obstruction, uvula midline. Mucous membranes moist. Neck: Trachea midline, no cervical lymphadenopathy. Supple, full range of motion without nuchal rigidity, or vertebral point tenderness. No Meningismus. Chest/axilla: Normal chest wall appearance and motion. Nontender with no deformity. Cardiovascular: Regular rate and rhythm with a normal S1 and S2. No gallops, murmurs, or rubs. Normal PMI, no JVD. No pulse deficits. Respiratory: Lungs have equal breath sounds bilaterally, clear to auscultation and percussion. No rales, rhonchi or wheezes noted. No increased work of breathing, no retractions or nasal flaring. Abdomen/GI: Soft, non-tender, with normal bowel sounds. No distension or tympany. No guarding or rebound. No evidence of tenderness throughout. Back: No spinal tenderness. No costovertebral tenderness. Full range of motion. Skin: Warm, dry with normal turgor. Normal color with no rashes, no lesions, and no evidence of cellulitis. Psych: Awake, alert, with orientation to person, place and time. Behavior, mood, and affect are within normal limits. 19:46 Neuro: Orientation: is normal, Mentation: is normal, Memory: is normal, Cranial nerves: grossly normal, Cerebellar function: is grossly normal, normal finger to nose testing, Motor: is normal. Vital Signs: 19:04 BP 151 / 102; Pulse 81; Resp 18; Temp 98.0(TE); Pulse Ox 99% on R/A; Weight 94.35 kg; ab2 Height 5 ft. 7 in. (170.18 cm); Pain 3/10; 19:44 BP 154 / 97; Pulse 75; Resp 16; Pulse Ox 100% on R/A; kd3 19:04 Body Mass Index 32.58 (94.35 kg, 170.18 cm) ab2 MDM: 19:36 Patient medically screened. ms3 19:46 Differential diagnosis: HTN vs Headache. Data reviewed: vital signs, nurses notes, EKG. ms3 Data interpreted: Pulse oximetry: on room air is 100 %. Interpretation: normal. Test interpretation: by ED physician or midlevel provider: ECG. Counseling: I had a detailed discussion with the patient and/or guardian regarding: the historical points, exam findings, and any diagnostic results supporting the discharge/admit diagnosis, the presence of at least one elevated blood pressure reading (>120/80) during this emergency department visit, the need for outpatient follow up, to return to the emergency department if symptoms worsen or persist or if there are any questions or concerns that arise at home. ED course: . ED course: Discussed EKG and physical exam findings with patient. Patient to follow-up with his primary care physician for antihypertensive medication titration. Patient understands agrees with plan. All questions were answered. Return precautions discussed include worsening symptoms, or any other concerns. EC:32 Rate is 75 beats/min. Rhythm is regular. QRS [place] is Normal. Clinical impression: ms3 Normal ECG. Interpreted by me. Reviewed by me. Administered Medications: No medications were administered Disposition Summary: 11/12/21 19:37 Discharge Ordered Location: Home ms3 Problem: an acute exacerbation ms3 Symptoms: have improved ms3 Condition: Stable ms3 Diagnosis - Essential (primary) hypertension ms3 - Headache ms3 Followup: ms3 - With: Private Physician - When: 2 - 3 days - Reason: Re-evaluation by your physician Discharge Instructions: - Discharge Summary Sheet ms3 - General Headache Without Cause ms3 - Hypertension, Adult ms3 Forms: - Medication Reconciliation Form ms3 - Thank You Letter ms3 - Antibiotic Education ms3 - Prescription Opioid Use ms3 Signatures: Kevin Torres, DO ms3 Soren Vegas ab2
--- NOTE | 2021-11-14 09:41 | EKG ---
Test Date: 2021-11-12 Test Time: 19:32:20 Renderer: PERLA MEASUREMENT RESULTS: Intervals: Rate: 75 OH: 140 QRSD: 84 QT: 362 QTc: 404 [place]: P: 41 OH: 140 QRS: 55 T: 25 INTERPRETIVE STATEMENTS: Normal sinus rhythm Normal ECG Compared to ECG 10/09/2021 18:57:12 No significant changes Electronically Signed On 11-14-21 09:35:57 CDT by Thee Goss
== END 2021-11-12 19:45 | disposition home or self-care (01) ==
LOC: ER 18:54
DX: I10 Essential (primary) hypertension (principal); R51.9 Headache, unspecified; F17.210 Nicotine dependence, cigarettes, uncomplicated
CPT/HCPCS: 93005; 99284

== ENCOUNTER 2021-12-15 22:11 | Emergency (ER) | payer SELFPAY ==
[2021-12-15] MEDS ORDERED: METHYLPREDNISOLONE 125 MG INJ ONE (22:51)
[2021-12-15] MEDS ORDERED: DIPHENHYDRAMINE 50 MG/ML VIAL ONE (22:52)
[2021-12-15] MEDS ORDERED: FAMOTIDINE 20 MG/2 ML VIAL IV ONE (22:52)
[2021-12-15] MEDS ORDERED: NA CHLORIDE 0.9% 1,000 ML ONE (22:52)
--- NOTE | 2021-12-15 23:51 | ER ---
Nurse's Notes [facility] [place] Name: Zeyad Alfonso Age: 31 yrs Sex: Male : 1990 Arrival Date: 12/15/2021 Time: 22:14 Bed 14 Private MD: Diagnosis: Other and unspecified allergy Presentation: 12/15 22:18 Chief complaint: Patient states: I have had a ear infection - I have been taking ld1 amoxicillin. Today I used the ear drops (neomycin) for the first time at 1930 and I think I am having an allergic reaction to it. C/O throat swelling and unable to focus. Coronavirus screen: At this time, the client does not indicate any symptoms associated with coronavirus-19. Ebola Screen: No symptoms or risks identified at this time. Onset: The symptoms/episode began/occurred gradually, 30 minute(s) ago. Anaphylaxis evaluation, Trouble breathing - swollen throat. Initial Sepsis Screen: Does the patient meet any 2 criteria? No. Patient's initial sepsis screen is negative. Does the patient have a suspected source of infection? No. Patient's initial sepsis screen is negative. Risk Assessment: Do you want to hurt yourself or someone else? Patient reports no desire to harm self or others. Onset of symptoms was December 15, 2021. 22:18 Method Of Arrival: Ambulatory ld1 22:18 Acuity: JAZ 3 ld1 Triage Assessment: 22:21 General: Appears in no apparent distress. comfortable, Behavior is calm, cooperative, ld1 appropriate for age. Pain: Denies pain. EENT: Throat is clear Reports swollen throat. Neuro: Level of Consciousness is awake, alert, obeys commands, Oriented to person, place, time, situation. Cardiovascular: Capillary refill < 3 seconds Patient's skin is warm and dry. Respiratory: Reports shortness of breath Airway is patent Respiratory effort is even, unlabored, Respiratory pattern is regular, symmetrical. Historical: - Allergies: 22:21 No Known Allergies; ld1 - Home Meds: 22:21 metoprolol tartrate 50 mg Oral tab 1 tab 2 times per day [Active]; ld1 - PMHx: 22:21 Hypertension; Hypertensive disorder; ld1 - PSHx: 22:21 jaw; ld1 - Immunization history:: Adult Immunizations up to date, Client reports having NOT received the Covid vaccine. - Social history:: Smoking status: Patient reports the use of cigarette tobacco products, smokes one pack cigarettes per day. Patient/guardian denies using alcohol. Screenin:29 Abuse screen: Denies threats or abuse. Denies injuries from another. Nutritional sm5 screening: No deficits noted. Tuberculosis screening: No symptoms or risk factors identified. Fall Risk None identified. Assessment: 22:53 General: Appears in no apparent distress. Behavior is cooperative. Pain: Denies pain. sm5 Neuro: No deficits noted. Wilburn Agitation-Sedation Scale (RASS): 0 - Alert and Calm Level of Consciousness is awake, alert, obeys commands, Oriented to person, place, time, situation. Cardiovascular: No deficits noted. Capillary refill < 3 seconds Patient's skin is warm and dry. Respiratory: No deficits noted. Reports throat swelling Airway is patent Trachea midline Respiratory effort is even, unlabored, Breath sounds are clear bilaterally. 23:28 Reassessment: pt rang call light saying he "feels weird and it's hard to explain" sm5 states his chest feels "tingly". GUERO Graham made aware. EKG ordered and obtained. Vital Signs: 22:18 BP 150 / 100; Pulse 69; Resp 18; Temp 98.2(O); Pulse Ox 99% on R/A; Weight 89.81 kg; ld1 Height 5 ft. 7 in. (170.18 cm); Pain 0/10; 23:28 BP 142 / 109; Pulse 65; Resp 16; Pulse Ox 100% on R/A; sm5 22:18 Body Mass Index 31.01 (89.81 kg, 170.18 cm) ld1 ED Course: 22:14 Patient arrived in ED. kz 22:20 Triage completed. ld1 22:20 Santos Patterson PA is PHCP. cp 22:20 Santos Gaffney MD is Attending Physician. cp 22:21 Arm band placed on right wrist. ld1 22:23 Lita Burns, DUTCH is Primary Nurse. sm5 22:53 Inserted saline lock: 20 gauge in right antecubital area, using aseptic technique. sm5 23:29 Patient has correct armband on for positive identification. Bed in low position. Call sm5 light in reach. Side rails up X2. 23:45 No provider procedures requiring assistance completed. IV discontinued, intact, sm5 bleeding controlled, No redness/swelling at site. Pressure dressing applied. Administered Medications: 22:53 Drug: SOLU-Medrol (methylPrednisoLONE) 125 mg Route: IVP; Site: right antecubital; 5 12/16 00:15 Follow up: Response: No adverse reaction 5 12/15 22:53 Drug: Benadryl (diphenhydrAMINE) 50 mg Route: IVP; Site: right antecubital; 5 12/16 00:15 Follow up: Response: No adverse reaction [facility] 12/15 22:53 Drug: NS 0.9% 1000 ml Route: IV; Rate: 500 ml/hr; Site: right antecubital; 5 12/16 00:15 Follow up: IV Status: Completed infusion; IV Intake: 1000ml 5 12/15 22:53 Drug: Pepcid (famotidine) 20 mg Route: IVP; Site: right antecubital; 5 12/16 00:15 Follow up: Response: No adverse reaction [facility] Medication: 12/15 23:29 VIS not applicable for this client. sm5 Intake: 12/16 00:15 IV: 1000ml; Total: 1000ml. 5 Outcome: 12/15 23:50 Discharge ordered by . cp 23:55 Discharged to home ambulatory. [facility] 23:55 Condition: stable 23:55 Discharge instructions given to patient, Instructed on discharge instructions, follow up and referral plans. medication usage, Demonstrated understanding of instructions, follow-up care, medications, Prescriptions given X 2. 12/16 00:16 Patient left the ED. 5 Signatures: Santos Patterson PA PA cp Gabbi Welch RN RN ld1 Lita Burns RN RN sm5 Kimber Escobar
--- NOTE | 2021-12-15 23:51 | EDPHYS ---
Physician Documentation [facility] Name: Zeyad Alfonso Age: 31 yrs Sex: Male : 1990 Arrival Date: 12/15/2021 Time: 22:14 Bed 14 Private MD: Santos Reynaga HPI: 12/15 22:40 This 31 yrs old Male presents to ER via Ambulatory with complaints of Allergic cp Reaction. 22:40 The patient presents with difficulty swallowing, throat closing. Onset: The cp symptoms/episode began/occurred just prior to arrival. Possible causes: The patient has no known obvious cause for the symptoms. At home the patient or guardian has treated the symptoms with nothing. Historical: - Allergies: 22:21 No Known Allergies; ld1 - Home Meds: 22:21 metoprolol tartrate 50 mg Oral tab 1 tab 2 times per day [Active]; ld1 - PMHx: 22:21 Hypertension; Hypertensive disorder; ld1 - PSHx: 22:21 jaw; ld1 - Immunization history:: Adult Immunizations up to date, Client reports having NOT received the Covid vaccine. - Social history:: Smoking status: Patient reports the use of cigarette tobacco products, smokes one pack cigarettes per day. Patient/guardian denies using alcohol. ROS: 22:45 Constitutional: Negative for body aches, chills, fever, poor PO intake. cp 22:45 Cardiovascular: Negative for chest pain, edema, palpitations. cp 22:45 Respiratory: Negative for cough, shortness of breath, wheezing. 22:45 Abdomen/GI: Negative for abdominal pain, vomiting, diarrhea, constipation. cp 22:45 Skin: Negative for rash. cp 22:45 Neuro: Negative for altered mental status, dizziness, headache, weakness. 22:45 All other systems are negative. Exam: 22:50 Constitutional: The patient appears in no acute distress, alert, awake, cp non-diaphoretic, non-toxic, well developed, well nourished. 22:50 Head/Face: Normocephalic, atraumatic. cp 22:50 Eyes: Periorbital structures: appear normal, Conjunctiva: normal, no exudate, no injection, Sclera: no appreciated abnormality, Lids and lashes: appear normal, bilaterally. 22:50 ENT: External ear(s): are unremarkable, Nose: is normal, Mouth: Lips: moist, Oral mucosa: pink and intact, moist, Posterior pharynx: Airway: no evidence of obstruction, patent, swelling, is not appreciated, erythema, is not appreciated, exudate, is not appreciated. 22:50 Neck: ROM/movement: is normal, is supple, without pain, no range of motions limitations. 22:50 Chest/axilla: Inspection: normal, Palpation: is normal, no crepitus, no tenderness. 22:50 Cardiovascular: Rate: normal, Rhythm: regular. 22:50 Respiratory: the patient does not display signs of respiratory distress, Respirations: normal, no use of accessory muscles, no retractions, labored breathing, is not present, Breath sounds: are clear throughout, no decreased breath sounds, no stridor, no wheezing. 22:50 Abdomen/GI: Inspection: abdomen appears normal, Palpation: abdomen is soft and non-tender, in all quadrants. 22:50 Skin: no rash present. 22:50 Neuro: Orientation: to person, place \T\ time. Mentation: is normal. 23:26 ECG was reviewed by the Attending Physician. Vital Signs: 22:18 BP 150 / 100; Pulse 69; Resp 18; Temp 98.2(O); Pulse Ox 99% on R/A; Weight 89.81 kg; ld1 Height 5 ft. 7 in. (170.18 cm); Pain 0/10; 23:28 BP 142 / 109; Pulse 65; Resp 16; Pulse Ox 100% on R/A; sm5 22:18 Body Mass Index 31.01 (89.81 kg, 170.18 cm) ld1 MDM: 22:23 Patient medically screened. cp 22:45 Differential diagnosis: anaphylaxis, angioedema, urticaria. cp 23:50 Data reviewed: vital signs, nurses notes. cp 23:50 Counseling: I had a detailed discussion with the patient and/or guardian regarding: the cp historical points, exam findings, and any diagnostic results supporting the discharge/admit diagnosis, to return to the emergency department if symptoms worsen or persist or if there are any questions or concerns that arise at home. Response to treatment: the patient's symptoms have markedly improved after treatment, Patient reports symptoms resolved, and as a result, I will discharge patient. 12/15 22:37 Order name: IV; Complete Time: 22:53 cp 12/15 23:20 Order name: EKG; Complete Time: 23:20 cp 12/15 23:20 Order name: EKG - Nurse/Tech; Complete Time: 23:28 cp EC: Rate is 60 beats/min. Rhythm is regular. UT interval is normal. QRS interval is normal. cp QT interval is normal. T waves are Inverted in leads III, aVR. Interpreted by me. Reviewed by me. Administered Medications: :53 Drug: SOLU-Medrol (methylPrednisoLONE) 125 mg Route: IVP; Site: right antecubital; [facility] 12/16 00:15 Follow up: Response: No adverse reaction [facility] 12/15 22:53 Drug: Benadryl (diphenhydrAMINE) 50 mg Route: IVP; Site: right antecubital; [facility] 12/16 00:15 Follow up: Response: No adverse reaction [facility] 12/15 21:53 Drug: NS 0.9% 1000 ml Route: IV; Rate: 500 ml/hr; Site: right antecubital; [facility] 12/16 00:15 Follow up: IV Status: Completed infusion; IV Intake: 1000ml [facility] 12/15 21:53 Drug: Pepcid (famotidine) 20 mg Route: IVP; Site: right antecubital; [facility] 12/16 00:15 Follow up: Response: No adverse reaction [facility] Disposition Summary: 12/15/21 23:50 Discharge Ordered Location: Home cp Problem: new cp Symptoms: have improved cp Condition: Stable cp Diagnosis - Other and unspecified allergy cp Followup: cp - With: Private Physician - When: 1 - 2 days - Reason: Recheck today's complaints Discharge Instructions: - Discharge Summary Sheet cp - Allergies, Adult cp Forms: - Medication Reconciliation Form cp - Thank You Letter cp - Antibiotic Education cp - Prescription Opioid Use cp Prescriptions: - Pepcid 20 mg Oral Tablet - take 1 tablet by ORAL route every 12 hours for 10 days; 20 tablet; Refills: 0, cp Product Selection Permitted - Prednisone 20 mg Oral Tablet - take 2 tablets by ORAL route once daily for 5 days then take 1 tablet daily for cp 3 days, then 1/2 tablet daily for 2 days; 14 tablet; Refills: 0, Product Selection Permitted Signatures: Page, Santos, PA Gabbi Reza cp, RN RN ld1 Lita Burns, RN RN sm5
[2021-12-16 07:15] VITALS: TEMP 98.2
[2021-12-16 07:16] VITALS: BP 142/109; O2SAT 100
--- NOTE | 2021-12-17 14:53 | EKG ---
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
== END 2021-12-16 00:16 | disposition home or self-care (01) ==
LOC: ER 22:11
DX: R13.10 Dysphagia, unspecified (principal); I10 Essential (primary) hypertension; F17.210 Nicotine dependence, cigarettes, uncomplicated
CPT/HCPCS: 93005; 96361; 96374; 96375; 99283; J1200; J2930; J3490; J7030

== ENCOUNTER 2022-04-11 01:00 | Emergency (ER) | payer SELFPAY ==
[2022-04-11 02:09] LABS: Absolute Lymphocytes (CBC) 2.2 K/uL (0.7-4.9); Hematocrit 51.1 % (39.6-49.0); Lymphocytes % 30.2 % (15.3-44.8); MCV 93.5 fL (80-100); MPV 8.2 fL (7.6-11.3); RBC Red Blood Cell Count 5.47 M/uL (4.33-5.43)
[2022-04-11 02:42] LABS: BUN Blood Urea Nitrogen 13 mg/dL (7-18); Bicarbonate 28 mmol/L (21-32); Glomerular Filtration Rate 121 ml/min (=/>90); Glucose Level 117 mg/dL (74-106); Sodium Level 137 mmol/L (136-145)
[2022-04-11 02:43] LABS: Magnesium 2.2 mg/dL (1.8-2.4); Potassium 3.6 mmol/L (3.5-5.1); Troponin High Sensitivity < 3.0 pg/mL (<58.9)
--- NOTE | 2022-04-11 02:56 | EDPHYS ---
Physician Documentation [facility] Name: Zeyad Alfonso Age: 31 yrs Sex: Male : 1990 Arrival Date: 04/11/2022 Time: 01:03 Bed 23 Private MD: ED Physician Santos Gaffney HPI: 04/11 01:15 This 31 yrs old Male presents to ER via EMS with complaints of High Blood cp Pressure. 01:15 The patient has elevated blood pressure and discovered this EMS. Onset: The cp symptoms/episode began/occurred today. Associated signs and symptoms: Pertinent positives: dizziness, lightheadedness, facial tingling, Pertinent negatives: chest pain, headache, visual changes, weakness. Severity of symptoms: in the emergency department the blood pressure is improved, 146 mm Hg. Patient reports history of hypertension and being prescribed Metoprolol 50 mg bid. Historical: - Home Meds: 01:06 metoprolol tartrate 50 mg Oral tab 1 tab 2 times per day [Active]; tw5 - PMHx: 01:06 Hypertensive disorder; tw5 - PSHx: 01:06 jaw; tw5 - Immunization history:: Flu vaccine is not up to date. - Social history:: Smoking status: Patient reports the use of cigarette tobacco products, smokes one pack cigarettes per day. Patient uses alcohol, occasionally. ROS: 01:20 Constitutional: Negative for body aches, chills, fever, poor PO intake. cp 01:20 Eyes: Negative for injury, pain, redness, and discharge. cp 01:20 ENT: Negative for drainage from ear(s), ear pain, sore throat, difficulty swallowing, difficulty handling secretions. 01:20 Cardiovascular: Negative for chest pain, edema, palpitations. 01:20 Respiratory: Negative for cough, shortness of breath, wheezing. 01:20 Abdomen/GI: Negative for abdominal pain, vomiting, diarrhea, constipation. 01:20 Neuro: Positive for dizziness, tingling, Negative for altered mental status, syncope, weakness. 01:20 All other systems are negative. Exam: 01:25 Constitutional: The patient appears in no acute distress, alert, awake, cp non-diaphoretic, non-toxic, well developed, well nourished. 01:25 Head/Face: Normocephalic, atraumatic. cp 01:25 Eyes: Periorbital structures: appear normal, Pupils: equal, round, and reactive to light and accomodation, Extraocular movements: intact throughout, Conjunctiva: normal, no exudate, no injection, Sclera: no appreciated abnormality, Lids and lashes: appear normal, bilaterally. 01:25 ENT: External ear(s): are unremarkable, Nose: is normal, Mouth: Lips: moist, Oral mucosa: pink and intact, moist, Posterior pharynx: Airway: no evidence of obstruction, patent. 01:25 Neck: ROM/movement: is normal, is supple, without pain, no range of motions limitations. 01:25 Chest/axilla: Inspection: normal. 01:25 Cardiovascular: Rate: normal, Rhythm: regular, Edema: is not appreciated, JVD: is not appreciated. 01:25 Respiratory: the patient does not display signs of respiratory distress, Respirations: normal, no use of accessory muscles, no retractions, labored breathing, is not present, Breath sounds: are clear throughout, no decreased breath sounds, no stridor, no wheezing. 01:25 Abdomen/GI: Inspection: abdomen appears normal, Palpation: abdomen is soft and non-tender, in all quadrants. 01:25 Back: pain, is absent, ROM is normal. 01:25 Neuro: Orientation: to person, place \T\ time. Mentation: is normal, Cerebellar function: is grossly normal, Motor: moves all fours, strength is normal, Sensation: no obvious gross deficits. 02:10 ECG was reviewed by the Attending Physician. Vital Signs: 01:05 BP 146 / 104; Pulse 65; Resp 18; Temp 97.8; Pulse Ox 100% ; Weight 91.63 kg; Height 5 tw5 ft. 7 in. (170.18 cm); Pain 0/10; 03:07 BP 132 / 102; Pulse 67; Resp 22 S; Pulse Ox 98% on R/A; as6 01:05 Body Mass Index 31.64 (91.63 kg, 170.18 cm) tw5 MDM: 01:13 Patient medically screened. [facility] 01:30 Differential diagnosis: hypertensive crisis, CVA, intracerebral hemorrhage, electrolyte cp abnormality, cardiac arrythmia. 02:55 Data reviewed: vital signs, nurses notes, lab test result(s), EKG, radiologic studies, cp CT scan, plain films. 02:55 Test interpretation: by ED physician or midlevel provider: ECG, plain radiologic cp studies. Counseling: I had a detailed discussion with the patient and/or guardian regarding: the historical points, exam findings, and any diagnostic results supporting the discharge/admit diagnosis, the presence of at least one elevated blood pressure reading (>120/80) during this emergency department visit, lab results, radiology results, the need for outpatient follow up, a family practitioner, to return to the emergency department if symptoms worsen or persist or if there are any questions or concerns that arise at home. Response to treatment: the patient's symptoms have markedly improved after treatment, and as a result, I will discharge patient. 04/11 01:09 Order name: Basic Metabolic Panel; Complete Time: 02:48 cp 04/11 02:49 Interpretation: Normal except: GLUC 117. 04/11 01:09 Order name: CBC with Diff 04/11 02:49 Interpretation: Normal except: RBC 5.47; HGB 18.5; HCT 51.1; MCHC 36.2. 04/11 01:09 Order name: Magnesium; Complete Time: 02:48 cp 04/11 01:09 Order name: Troponin HS; Complete Time: 02:48 cp 04/11 02:49 Interpretation: Reviewed. 04/11 01:09 Order name: XRAY Chest (1 view) 04/11 02:49 Order name: Manual Differential EDMS 04/11 01:09 Order name: EKG; Complete Time: 01:12 cp 04/11 01:09 Order name: Cardiac monitoring; Complete Time: 02:29 cp 04/11 01:09 Order name: EKG - Nurse/Tech; Complete Time: 02:29 cp 04/11 01:09 Order name: IV Saline Lock; Complete Time: 01:49 cp 04/11 01:09 Order name: Labs collected and sent; Complete Time: 01:49 cp 04/11 01:09 Order name: O2 Per Protocol; Complete Time: 02:29 cp 04/11 01:23 Order name: CT Head Brain wo Cont cp 04/11 01:09 Order name: O2 Sat Monitoring; Complete Time: 02:29 cp EC:10 Rate is 64 beats/min. Rhythm is regular. OH interval is normal. QRS interval is normal. cp QT interval is normal. T waves are Inverted in leads III, aVR. Interpreted by me. Reviewed by me. Administered Medications: 02:50 CANCELLED (Physician Discretion): NS 0.9% 1000 ml IV at 1 bolus Per protocol; 1000 mL cp bolus Disposition Summary: 04/11/22 02:56 Discharge Ordered Location: Home cp Problem: new cp Symptoms: have improved cp Condition: Stable cp Diagnosis - Hypertensive heart disease without heart failure cp Followup: cp - With: Private Physician - When: 2 - 3 days - Reason: Recheck today's complaints Discharge Instructions: - Discharge Summary Sheet cp - Hypertension, Adult cp - Form - Blood Pressure Record Sheet cp - How to Take Your Blood Pressure cp - Aspirin and Your Heart cp Forms: - Medication Reconciliation Form cp - Thank You Letter cp - Antibiotic Education cp - Prescription Opioid Use cp Signatures: Dispatcher [employer] EDSantos Hyde MD MD cha Page, Corey, PA PA cp Wood, Tiffany tw5 Corrections: (The following items were deleted from the chart) 02:50 02:49 NS 0.9% 1000 ml IV at 1 bolus Per protocol; 1000 mL bolus ordered. cp cp
--- NOTE | 2022-04-11 02:56 | ER ---
Nurse's Notes [facility] Name: Zeyad Alfonso Age: 31 yrs Sex: Male : 1990 Arrival Date: 04/11/2022 Time: 01:03 Bed 23 Private MD: Diagnosis: Hypertensive heart disease without heart failure Presentation: 04/11 01:05 Chief complaint: EMS states: "He has been having high blood pressure and this evening tw5 he started to feel dizzy and sweaty so he called us.". Coronavirus screen: Vaccine status: Patient reports being unvaccinated. Ebola Screen: Patient negative for fever greater than or equal to 101.5 degrees Fahrenheit, and additional compatible Ebola Virus Disease symptoms Patient denies exposure to infectious person. Patient denies travel to an Ebola-affected area in the 21 days before illness onset. Initial Sepsis Screen: Does the patient meet any 2 criteria? No. Patient's initial sepsis screen is negative. Does the patient have a suspected source of infection? No. Patient's initial sepsis screen is negative. Risk Assessment: Do you want to hurt yourself or someone else? Patient reports no desire to harm self or others. Onset of symptoms was April 11, 2022 at 00:00. 01:05 Method Of Arrival: EMS: [facility] tw5 01:05 Acuity: JAZ 3 tw5 Triage Assessment: 01:06 General: Appears in no apparent distress. comfortable, Behavior is calm, cooperative, tw5 appropriate for age. Pain: Denies pain. Historical: - Home Meds: : metoprolol tartrate 50 mg Oral tab 1 tab 2 times per day [Active]; tw5 - PMHx: 01:06 Hypertensive disorder; tw5 - PSHx: 01:06 jaw; tw5 - Immunization history:: Flu vaccine is not up to date. - Social history:: Smoking status: Patient reports the use of cigarette tobacco products, smokes one pack cigarettes per day. Patient uses alcohol, occasionally. Screenin:07 Abuse screen: Denies threats or abuse. Denies injuries from another. Nutritional as6 screening: No deficits noted. Tuberculosis screening: No symptoms or risk factors identified. Fall Risk None identified. Assessment: 03:07 General: Appears in no apparent distress. Behavior is calm, cooperative. Pain: Denies as6 pain. Neuro: Level of Consciousness is awake, alert. Respiratory: Respiratory effort is even, unlabored. Vital Signs: 01:05 BP 146 / 104; Pulse 65; Resp 18; Temp 97.8; Pulse Ox 100% ; Weight 91.63 kg; Height 5 tw5 ft. 7 in. (170.18 cm); Pain 0/10; 03:07 BP 132 / 102; Pulse 67; Resp 22 S; Pulse Ox 98% on R/A; as6 01:05 Body Mass Index 31.64 (91.63 kg, 170.18 cm) tw5 ED Course: 01:03 Patient arrived in ED. as6 01:03 Brody De La Rosa, RN is Primary Nurse. as6 01:06 Triage completed. tw5 01:06 Arm band placed on right wrist. tw5 01:07 Patient has correct armband on for positive identification. Placed in gown. Bed in low tw5 position. Call light in reach. Side rails up X 1. lathing supervisor on. Pulse ox on. NIBP on. Door closed. Noise minimized. Moved to private room. Warm blanket given. Verbal reassurance given. 01:08 Santos Patterson PA is PHCP. cp 01:08 Santos Gaffney MD is Attending Physician. cp 01:30 XRAY Chest (1 view) In Process Unspecified. EDMS 01:49 Initial lab(s) drawn, by me, sent to lab. Inserted saline lock: 20 gauge in left wm antecubital area, using aseptic technique. Blood collected. 01:50 Basic Metabolic Panel Sent. wm 01:50 CBC with Diff Sent. wm 01:50 Magnesium Sent. wm 01:50 Troponin HS Sent. wm 02:01 CT Head Brain wo Cont In Process Unspecified. EDMS 02:29 Basic Metabolic Panel Sent. wm 02:30 Client placed on continuous cardiac and pulse oximetry monitoring. NIBP monitoring wm applied. lathing supervisor on. 02:30 CBC with Diff Sent. wm 02:30 Magnesium Sent. wm 02:30 Troponin HS Sent. wm 03:08 No provider procedures requiring assistance completed. IV discontinued, intact, as6 bleeding controlled, No redness/swelling at site. Pressure dressing applied. Administered Medications: 02:50 CANCELLED (Physician Discretion): NS 0.9% 1000 ml IV at 1 bolus Per protocol; 1000 mL cp bolus Medication: 03:08 VIS not applicable for this client. as6 Outcome: 02:56 Discharge ordered by . fred 03:08 Discharged to home ambulatory. as6 03:08 Condition: stable 03:08 Discharge instructions given to patient, Instructed on discharge instructions, follow up and referral plans. Demonstrated understanding of instructions, follow-up care. 03:08 Patient left the ED. as6 Signatures: Dispatcher [employer] EDMS Santos Patterson PA PA cp Marsh, Wendy wm Wood, Tiffany tw5 Brody De La Rosa RN RN as6
[2022-04-11 03:08] LABS: Blood Morphology Comment NOT SEEN (NOT SEEN); Platelet Estimate ADEQ
[2022-04-11 06:08] VITALS: TEMP 97.8
[2022-04-11 06:13] VITALS: BP 132/102; O2SAT 98
--- NOTE | 2022-04-11 13:33 | RAD REPORT ---
EXAM DESCRIPTION: RAD - Chest Single View - 04/11/2022 1:28 am CLINICAL HISTORY: The patient is 31 years old and is Male; dizzy TECHNIQUE: Frontal view of the chest. COMPARISON: No relevant prior studies available. FINDINGS: Lungs: Unremarkable. No consolidation. Pleural space: Unremarkable. No pneumothorax. Heart: Unremarkable. Mediastinum: Unremarkable. Bones/joints: Unremarkable. IMPRESSION: No acute findings in the chest. Electronically signed by: Santos Diaz MD 04/11/2022 1:48 AM CDT Due to temporary technical issues with the PACS/Fluency reporting system, reports are being signed by the in house radiologists without review as a courtesy to insure prompt reporting. The interpreting radiologist is fully responsible for the content of the report.
--- NOTE | 2022-04-11 13:47 | RAD REPORT ---
EXAM DESCRIPTION: CT - Head Brain Wo Cont - 04/11/2022 6:45 am CLINICAL HISTORY: The patient is 31 years old and is Male; dizziness, htn TECHNIQUE: Axial computed tomography images of the head/brain without intravenous contrast. Sagitt al and coronal reformatted images were created and reviewed. This CT exam was performed using one o r more of the following dose reduction techniques: automated exposure control, adjustment of the mA and/or kV according to patient size, and/or use of iterative reconstruction technique. COMPARISON: No relevant prior studies available. FINDINGS: Brain: Unremarkable. No hemorrhage. No significant white matter disease. No edema. Ventricles: Unremarkable. No ventriculomegaly. Bones/joints: Unremarkable. No acute fracture. Soft tissues: Unremarkable. Sinuses: Unremarkable as visualized. Mastoid air cells: Unremarkable as visualized. No mastoid effusion. IMPRESSION: No acute intracranial abnormality. Electronically signed by: Santos Diaz MD 04/11/2022 2:31 AM CDT Due to temporary technical issues with the PACS/Fluency reporting system, reports are being signed by the in house radiologists without review as a courtesy to insure prompt reporting. The interpreting radiologist is fully responsible for the content of the report.
--- NOTE | 2022-04-11 14:30 | EKG ---
Test Date: 2022-04-11 Test Time: 02:05:00 Pneumatic System Conveyor Operator: MEASUREMENT RESULTS: Intervals: Rate: 64 OK: 150 QRSD: 86 QT: 392 QTc: 404 [place]: P: 23 OK: 150 QRS: 38 T: 21 INTERPRETIVE STATEMENTS: Normal sinus rhythm Normal ECG Compared to ECG 02/18/2022 12:57:26 No significant changes Electronically Signed On 04-11-22 14:29:26 CDT by Mustapha Harmon
== END 2022-04-11 03:08 | disposition home or self-care (01) ==
LOC: ER 01:00
DX: I11.9 Hypertensive heart disease without heart failure (principal); I10 Essential (primary) hypertension; F17.210 Nicotine dependence, cigarettes, uncomplicated
CPT/HCPCS: 36415; 70450; 71045; 80048; 83735; 84484; 85025; 93005; 99284

== ENCOUNTER 2022-05-08 08:35 | Emergency (ER) | payer SELFPAY ==
[2022-05-08] MEDS ORDERED: DIAZEPAM 5 MG TABLET ONE (09:09)
[2022-05-08 09:27] LABS: ALT/SGPT 39 U/L (12-78); AST/SGOT 21 U/L (15-37); Alkaline Phosphatase 75 U/L (45-117); BUN Blood Urea Nitrogen 9 mg/dL (7-18); Bicarbonate 26 mmol/L (21-32); Bilirubin Direct 0.1 mg/dL (0-0.2); Bilirubin Total 0.5 mg/dL (0.2-1.0); Glomerular Filtration Rate 118 ml/min (=/>90); Glucose Level 117 mg/dL (74-106); Potassium 3.7 mmol/L (3.5-5.1); Protein, Total 7.7 g/dL (6.4-8.2); Sodium Level 136 mmol/L (136-145)
[2022-05-08 09:47] LABS: NT PRO-BNP < 5 pg/mL (<125)
[2022-05-08 10:04] LABS: Absolute Lymphocytes (CBC) 2.1 K/uL (0.7-4.9); Lymphocytes % 28.4 % (15.3-44.8); MCV 93.6 fL (80-100); MPV 8.4 fL (7.6-11.3)
--- NOTE | 2022-05-08 10:07 | EDPHYS ---
Physician Documentation [facility] Name: Zeyad Alfonso Age: 31 yrs Sex: Male : 1990 Arrival Date: 05/08/2022 Time: 08:37 Bed 7 Private MD: ED Physician Juve Duran HPI: 05/08 08:45 This 31 yrs old Male presents to ER via Unassigned with complaints of Blood jr11 Pressure Problem. 08:45 Pt went out to drink last night, took his BP meds, noticed this AM that his BP has jr11 160s-170s, bilateral hands tingling, also upper R chest tingling, no focal neuro deficits. . Onset: The symptoms/episode began/occurred acutely. Severity of symptoms: At their worst the symptoms were moderate in the emergency department the symptoms are unchanged. compliant with meds. Historical: - Allergies: 08:46 No Known Allergies; db - Home Meds: 08:46 metoprolol tartrate 25 mg oral tab once daily [Active]; db - PMHx: 08:46 Hypertensive disorder; db - Immunization history:: Adult Immunizations unknown, Client reports having NOT received the Covid vaccine. - Social history:: Smoking status: Patient reports the use of cigarette tobacco products, smokes one pack cigarettes per day. Patient uses alcohol, weekly. on weekends. ROS: 08:45 All other systems are negative. jr11 Exam: 08:45 Constitutional: This is a well developed, well nourished patient who is awake, alert, jr11 and in no acute distress. Head/Face: Normocephalic, atraumatic. Eyes: Extra-ocular motions intact. Lids and lashes normal. Conjunctiva and sclera are non-icteric and not injected. Cornea within normal limits. Periorbital areas with no swelling, redness, or edema. ENT: Nares patent. No nasal discharge, no septal abnormalities noted. Oropharynx with no redness, swelling, or masses, exudates, or evidence of obstruction, uvula midline. Mucous membranes moist. Neck: Trachea midline, no thyromegaly or masses palpated, and no cervical lymphadenopathy. Supple, full range of motion without nuchal rigidity, or vertebral point tenderness. No Meningismus. Chest/axilla: Normal chest wall appearance and motion. Nontender with no deformity. No lesions are appreciated. Cardiovascular: Regular rate and rhythm with a normal S1 and S2. No gallops, murmurs, or rubs. Normal PMI, no JVD. No pulse deficits. Respiratory: Lungs have equal breath sounds bilaterally, clear to auscultation and percussion. No rales, rhonchi or wheezes noted. No increased work of breathing, no retractions or nasal flaring. Abdomen/GI: Soft, non-tender, with normal bowel sounds. No distension or tympany. No guarding or rebound. No evidence of tenderness throughout. Back: No spinal tenderness. No costovertebral tenderness. Full range of motion. Skin: Warm, dry with normal turgor. Normal color with no rashes, no lesions, and no evidence of cellulitis. MS/ Extremity: Pulses equal, no cyanosis. Neurovascular intact. Full, normal range of motion. Psych: anxious Vital Signs: 08:30 BP 160 / 112; Pulse 86; Resp 18; Temp 99.1(O); Pulse Ox 100% ; Weight 87.09 kg; Height db 5 ft. 7 in. (170.18 cm); Pain 0/10; 09:00 BP 152 / 103; Pulse 86; Resp 22; Pulse Ox 98% ; Pain 0/10; db 10:00 BP 145 / 102; Pulse 87; Resp 16; Pulse Ox 98% on R/A; Pain 0/10; db 08:30 Body Mass Index 30.07 (87.09 kg, 170.18 cm) db MDM: 08:43 Patient medically screened. jr11 08:45 Differential Diagnosis anxiety, asymptomatic HTN. Data reviewed: vital signs, nurses jr11 notes. 09:21 ED course: EKG interpreted by me shows normal sinus rhythm, normal axis, normal jr11 intervals, no acute ST changes, nonspecific T wave inversion in leads III and V1. EKG otherwise normal.. 10:05 ED course: PT significantly improved, will keep BP log and take to PCP. ER warnings jr11 given, pt feeling better.. 05/08 08:44 Order name: Basic Metabolic Panel jr11 05/08 08:44 Order name: CBC with Diff jr11 05/08 08:44 Order name: LFT's jr11 05/08 08:44 Order name: NT PRO-BNP jr11 05/08 08:44 Order name: Troponin HS jr11 05/08 09:47 Order name: Basic Metabolic Panel; Complete Time: 10:05 EDMS 05/08 08:44 Order name: EKG; Complete Time: 08:45 jr11 05/08 08:44 Order name: Cardiac monitoring; Complete Time: 09:02 jr11 05/08 08:44 Order name: EKG - Nurse/Tech; Complete Time: 09:21 jr11 05/08 09:47 Order name: Liver (Hepatic) Function; Complete Time: 10:05 EDMS 05/08 09:47 Order name: Troponin High Sensitivity; Complete Time: 10:05 EDMS 05/08 09:47 Order name: NT PRO-BNP; Complete Time: 10:05 EDMS 05/08 10:08 Order name: CBC with Automated Diff EDMS 05/08 08:44 Order name: IV Saline Lock; Complete Time: 09:01 [facility] 05/08 08:44 Order name: Labs collected and sent; Complete Time: 10:22 [facility] 05/08 08:44 Order name: O2 Per Protocol; Complete Time: 09:01 [facility] 05/08 08:44 Order name: O2 Sat Monitoring; Complete Time: 09:01 [facility] Administered Medications: 09:13 Drug: Valium (diazepam) 5 mg Route: PO; db 10:00 Follow up: Response: No adverse reaction db Disposition Summary: 05/08/22 10:07 Discharge Ordered Location: Home [facility] Condition: Stable [facility] Diagnosis - Essential (primary) hypertension jr11 - Other specified anxiety disorders jr11 - Alcohol use, unspecified with alcohol-induced anxiety disorder jr11 Discharge Instructions: - Discharge Summary Sheet jr11 - Hypertension, Adult jr11 - How to Take Your Blood Pressure, [id number] [facility] Forms: - Medication Reconciliation Form jr11 - Thank You Letter jr11 - Antibiotic Education jr11 - Prescription Opioid Use [facility] Signatures: Dispatcher [employer] EDJuve Ardon MD MD jr11 Jasmine Santos RN RN db Corrections: (The following items were deleted from the chart) 08:47 08:46 PSHx: jaw; db db
--- NOTE | 2022-05-08 10:07 | ER ---
Nurse's Notes [facility] Name: Zeyad Alfonso Age: 31 yrs Sex: Male : 1990 Arrival Date: 05/08/2022 Time: 08:37 Bed 7 Private MD: Diagnosis: Essential (primary) hypertension;Other specified anxiety disorders;Alcohol use, unspecified with alcohol-induced anxiety disorder Presentation: 05/08 08:30 Chief complaint: Patient states: Patient states felt like was going to pass out, db hyperventilating when EMS arrived. Patient has right arm and right hand tingling. Coronavirus screen: Vaccine status: Patient reports being unvaccinated. Client denies travel out of the [place] in the last 14 days. At this time, the client does not indicate any symptoms associated with coronavirus-19. Ebola Screen: Patient negative for fever greater than or equal to 101.5 degrees Fahrenheit, and additional compatible Ebola Virus Disease symptoms Patient denies exposure to infectious person. Patient denies travel to an Ebola-affected area in the 21 days before illness onset. No symptoms or risks identified at this time. Initial Sepsis Screen: Does the patient meet any 2 criteria? No. Patient's initial sepsis screen is negative. Does the patient have a suspected source of infection? No. Patient's initial sepsis screen is negative. 08:30 Method Of Arrival: EMS: [facility] db 08:30 Risk Assessment: Do you want to hurt yourself or someone else? Patient reports no db desire to harm self or others. Onset of symptoms was May 08, 2022. Care prior to arrival: None. Activity prior to arrival: None. 08:30 Acuity: JAZ 3 db Triage Assessment: 08:47 General: Appears in no apparent distress. comfortable, Behavior is calm, cooperative, db appropriate for age. Pain: Denies pain. EENT: No deficits noted. Neuro: No deficits noted. Cardiovascular: No deficits noted. Respiratory: No deficits noted. GI: No deficits noted. : No deficits noted. Derm: No deficits noted. Musculoskeletal: No deficits noted. Historical: - Allergies: 08:46 No Known Allergies; db - Home Meds: 08:46 metoprolol tartrate 25 mg oral tab once daily [Active]; db - PMHx: 08:46 Hypertensive disorder; db - Immunization history:: Adult Immunizations unknown, Client reports having NOT received the Covid vaccine. - Social history:: Smoking status: Patient reports the use of cigarette tobacco products, smokes one pack cigarettes per day. Patient uses alcohol, weekly. on weekends. Screenin:48 Abuse screen: Denies threats or abuse. Denies injuries from another. Nutritional db screening: No deficits noted. Tuberculosis screening: No symptoms or risk factors identified. Fall Risk None identified. Assessment: 08:48 Reassessment: Patient appears in no apparent distress at this time. No changes from db previously documented assessment. Patient is alert, oriented x 3, equal unlabored respirations, skin warm/dry/pink. Patient denies pain at this time. General: Appears in no apparent distress. comfortable, Behavior is calm, cooperative, appropriate for age, quiet. Pain: Denies pain. Neuro: No deficits noted. Neuro: Level of Consciousness is awake, alert, obeys commands, Oriented to. Cardiovascular: No deficits noted. Cardiovascular: Reports None. Respiratory: No deficits noted. GI: No deficits noted. : No deficits noted. EENT: No deficits noted. Derm: No deficits noted. Musculoskeletal: No deficits noted. 10:00 Reassessment: Patient appears in no apparent distress at this time. No changes from db previously documented assessment. Patient and/or family updated on plan of care and expected duration. Pain level reassessed. Patient is alert, oriented x 3, equal unlabored respirations, skin warm/dry/pink. Patient denies pain at this time. Patient states feeling better. Vital Signs: 08:30 BP 160 / 112; Pulse 86; Resp 18; Temp 99.1(O); Pulse Ox 100% ; Weight 87.09 kg; Height db 5 ft. 7 in. (170.18 cm); Pain 0/10; 09:00 BP 152 / 103; Pulse 86; Resp 22; Pulse Ox 98% ; Pain 0/10; db 10:00 BP 145 / 102; Pulse 87; Resp 16; Pulse Ox 98% on R/A; Pain 0/10; db 08:30 Body Mass Index 30.07 (87.09 kg, 170.18 cm) db ED Course: 08:37 Patient arrived in ED. db 08:37 Juve Duran MD is Attending Physician. jr11 08:46 Triage completed. db 08:47 Arm band placed on right wrist. db 08:48 Patient has correct armband on for positive identification. Bed in low position. Side db rails up X 1. Client placed on continuous cardiac and pulse oximetry monitoring. NIBP monitoring applied. 09:00 Inserted saline lock: 22 gauge in right antecubital area, using aseptic technique. db Blood collected. 09:01 Jasmien Santos, RN is Primary Nurse. db 09:25 Warm blanket given. db 10:21 No provider procedures requiring assistance completed. IV discontinued, intact, db bleeding controlled, No redness/swelling at site. Pressure dressing applied. Administered Medications: 09:13 Drug: Valium (diazepam) 5 mg Route: PO; db 10:00 Follow up: Response: No adverse reaction db Medication: 08:48 VIS not applicable for this client. db Outcome: 10:07 Discharge ordered by MD. veloz 10:21 Discharged to home db 10:21 Discharged to home ambulatory. 10:21 Condition: stable 10:21 Discharge instructions given to patient. 10:23 Patient left the ED. db Signatures: Juve Duran MD MD jr11 Jasmine Santos, RN RN db Corrections: (The following items were deleted from the chart) 08:47 08:46 PSHx: jaw; db db
[2022-05-08 10:08] LABS: Hematocrit 50.6 % (39.6-49.0)
[2022-05-08 10:35] VITALS: O2SAT 98
[2022-05-08 10:45] VITALS: BP 145/102
--- NOTE | 2022-05-09 13:51 | EKG ---
Test Date: 2022-05-08 Test Time: 09:22:31 Medical Office Assistant Instructor: KISHAN MEASUREMENT RESULTS: Intervals: Rate: 80 [place]: 146 QRSD: 84 QT: 366 QTc: 422 [place]: P: 34 [place]: 146 QRS: 41 T: 19 INTERPRETIVE STATEMENTS: Normal sinus rhythm ST elevation, probably due to early repolarization Borderline ECG Compared to ECG 04/11/2022 02:05:00 ST (T wave) deviation now present Early repolarization now present Electronically Signed On 05-09-22 13:50:36 CDT by Mustapha Harmon
== END 2022-05-08 10:23 | disposition home or self-care (01) ==
LOC: ER 08:35
DX: I10 Essential (primary) hypertension (principal); F41.8 Other specified anxiety disorders; F10.980 Alcohol use, unspecified with alcohol-induced anxiety disorder
CPT/HCPCS: 36415; 80048; 80076; 83880; 84484; 85025; 93005; 99284

== ENCOUNTER 2022-09-25 06:06 | Emergency (ER) | payer SELFPAY ==
[2022-09-25 06:43] LABS: Absolute Lymphocytes (CBC) 2.3 K/uL (0.7-4.9); Hematocrit 47.9 % (39.6-49.0); Lymphocytes % 24.5 % (15.3-44.8); MCV 91.2 fL (80-100); MPV 7.9 fL (7.6-11.3); RBC Red Blood Cell Count 5.25 M/uL (4.33-5.43)
[2022-09-25 07:22] LABS: ALT/SGPT 38 U/L (16-61); AST/SGOT 21 U/L (15-37); Albumin 3.9 g/dL (3.4-5.0); Alkaline Phosphatase 77 U/L (45-117); BUN Blood Urea Nitrogen 12 mg/dL (7-18); Bicarbonate 29 mmol/L (21-32); Bilirubin Total 0.5 mg/dL (0.2-1.0); Glomerular Filtration Rate 117 ml/min (=/>90); Glucose Level 99 mg/dL (74-106); Lipase 132 U/L (73-393); Potassium 3.8 mmol/L (3.5-5.1); Protein, Total 7.6 g/dL (6.4-8.2); Sodium Level 136 mmol/L (136-145)
[2022-09-25 07:24] LABS: Troponin High Sensitivity < 3.0 pg/mL (<58.9)
--- NOTE | 2022-09-25 08:45 | ER ---
[facility] Name: Zeyad Alfonso Age: 32 yrs Sex: Male : 1990 Arrival Date: 09/25/2022 Time: 06:08 Bed 17 Private MD: Diagnosis: Essential (primary) hypertension;Tobacco abuse counseling;Tobacco use;Alcohol abuse counseling and surveillance Presentation: 09/25 06:10 Chief complaint: EMS states: Pt is on Metoprolol for his blood pressure, started jb4 feeling dizzy and having a headache at work, started walking to the hospital and called EMS. Coronavirus screen: At this time, the client does not indicate any symptoms associated with coronavirus-19. Ebola Screen: No symptoms or risks identified at this time. Initial Sepsis Screen: Does the patient meet any 2 criteria? No. Patient's initial sepsis screen is negative. Does the patient have a suspected source of infection? No. Patient's initial sepsis screen is negative. Risk Assessment: Do you want to hurt yourself or someone else? Patient reports no desire to harm self or others. Onset of symptoms was September 25, 2022. Transition of care: patient was not received from another setting of care. 06:10 Method Of Arrival: EMS: [facility] jb4 06:10 Acuity: JAZ 3 jb4 Historical: - Allergies: 06:25 No Known Allergies; jb4 - Home Meds: 06:25 metoprolol tartrate 25 mg Oral tab once daily [Active]; jb4 - PMHx: 06:25 Hypertensive disorder; hyperlipidemia; jb4 - Immunization history:: Adult Immunizations unknown. - Social history:: Smoking status: unknown. - Family history:: not pertinent. Screenin:33 [facility] ED Fall Risk Assessment (Adult) History of falling in the last 3 months, jb4 including since admission No falls in past 3 months (0 pts) Confusion or Disorientation No (0 pts) Score/Fall Risk Level 0 - 2 = Low Risk Oriented to surroundings, Maintained a safe environment. Abuse screen: Denies threats or abuse. Nutritional screening: No deficits noted. Tuberculosis screening: No symptoms or risk factors identified. Assessment: 06:33 General: Appears in no apparent distress. comfortable, Behavior is calm, cooperative, jb4 appropriate for age. Pain: Denies pain. Neuro: Level of Consciousness is awake, alert, obeys commands, Oriented to person, place, time, situation. Cardiovascular: Patient's skin is warm and dry. Respiratory: Airway is patent Respiratory effort is even, unlabored, Respiratory pattern is regular, symmetrical. GI: No signs and/or symptoms were reported involving the gastrointestinal system. : No signs and/or symptoms were reported regarding the genitourinary system. EENT: No signs and/or symptoms were reported regarding the EENT system. Derm: Skin is intact, Skin is pink, warm \T\ dry. Musculoskeletal: Circulation, motion, and sensation intact. Range of motion: intact in all extremities. Vital Signs: 06:10 BP 133 / 93; Pulse 78; Resp 16; Temp 98.1(TE); Pulse Ox 94% on R/A; Weight 88.45 kg jb4 (R); Height 5 ft. 7 in. (170.18 cm) (R); Pain 0/10; 07:10 BP 128 / 95; Pulse 67; Resp 16; Pulse Ox 98% on R/A; ko1 06:10 Body Mass Index 30.54 (88.45 kg, 170.18 cm) jb4 ED Course: 06:08 Patient arrived in ED. mw2 06:10 Abebe Townsend, RN is Primary Nurse. jb4 06:13 Matt Cadena MD is Attending Physician. rt 06:22 Triage completed. jb4 06:25 Arm band placed on right wrist. jb4 06:30 Initial lab(s) drawn, by sc, sent to lab. Inserted saline lock: 20 gauge in right jb4 antecubital area, using aseptic technique. Blood collected. 06:32 CMP Sent. jb4 06:32 CBC with Diff Sent. jb4 06:32 Troponin High Sensitivity Sent. jb4 06:32 Lipase Sent. jb4 06:32 ETOH Level Sent. jb4 07:12 Attending Physician role handed off by Matt Cadena MD larissa 07:12 Santos Gaffney MD is Attending Physician. larissa 08:45 Mustapha Harmon MD is Referral Physician. larissa 09:18 Patient has correct armband on for positive identification. Bed in low position. ko1 09:18 No provider procedures requiring assistance completed. IV discontinued, intact, ko1 bleeding controlled, No redness/swelling at site. Pressure dressing applied. Administered Medications: 08:53 Drug: Aspirin 81 mg Route: PO; ko1 Medication: 09:18 VIS not applicable for this client. ko1 Outcome: 08:44 Discharge ordered by . larissa 09:18 Discharged to home ambulatory. ko1 09:18 Condition: improved 09:18 Discharge instructions given to patient, Instructed on discharge instructions, follow up and referral plans. medication usage, Demonstrated understanding of instructions, follow-up care, medications, Prescriptions given X 1. 09:26 Patient left the ED. ko1 Signatures: Santos Gaffney MD MD cha Bryson, James, RN RN jb4 Hugo Peter 2 Lucila Ibarra RN RN ko1 Matt Cadena MD MD rt
--- NOTE | 2022-09-25 08:45 | EDPHYS ---
Physician Documentation [facility] Name: Zeyad Alfonso Age: 32 yrs Sex: Male : 1990 Arrival Date: 09/25/2022 Time: 06:08 Bed 17 Private MD: ED Physician Santos Gaffney HPI: 09/25 06:22 This 32 yrs old Male presents to ER via Unassigned with complaints of rt Hypertension, chest pain. 06:22 Patient presents to the ED with reported dizziness, chest pain about 2 hours prior to rt arrival. He states that he believes his blood pressure was elevated because of that. He called the paramedics. He states that the symptoms were brief and completely resolved. He denies other acute complaints at this time, no symptoms currently. Symptoms are mild in severity, no other aggravating or alleviating factors.. Historical: - Allergies: 06:25 No Known Allergies; jb4 - Home Meds: 06:25 metoprolol tartrate 25 mg Oral tab once daily [Active]; jb4 - PMHx: 06:25 Hypertensive disorder; hyperlipidemia; jb4 - Immunization history:: Adult Immunizations unknown. - Social history:: Smoking status: unknown. - Family history:: not pertinent. ROS: 06:22 Constitutional: Negative for fever, chills, and weight loss, Respiratory: Negative for rt shortness of breath, cough, wheezing, and pleuritic chest pain, Abdomen/GI: Negative for abdominal pain, nausea, vomiting, diarrhea, and constipation, Skin: Negative for injury, rash, and discoloration, Psych: Negative for depression, anxiety, suicide ideation, homicidal ideation, and hallucinations. 06:22 Cardiovascular: Positive for chest pain, Negative for edema. 06:22 Neuro: Positive for dizziness, Negative for altered mental status. Exam: 06:22 Constitutional: This is a well developed, well nourished patient who is awake, alert, rt and in no acute distress. Head/Face: Normocephalic, atraumatic. Eyes: Pupils equal round and reactive to light, extra-ocular motions intact. Lids and lashes normal. Conjunctiva and sclera are non-icteric and not injected. Cornea within normal limits. Periorbital areas with no swelling, redness, or edema. Chest/axilla: Normal chest wall appearance and motion. Nontender with no deformity. No lesions are appreciated. Cardiovascular: Regular rate and rhythm with a normal S1 and S2. No gallops, murmurs, or rubs. Normal PMI, no JVD. No pulse deficits. Respiratory: Lungs have equal breath sounds bilaterally, clear to auscultation and percussion. No rales, rhonchi or wheezes noted. No increased work of breathing, no retractions or nasal flaring. Abdomen/GI: Soft, non-tender, with normal bowel sounds. No distension or tympany. No guarding or rebound. No evidence of tenderness throughout. Skin: Warm, dry with normal turgor. Normal color with no rashes, no lesions, and no evidence of cellulitis. MS/ Extremity: Pulses equal, no cyanosis. Neurovascular intact. Full, normal range of motion. Neuro: Awake and alert, GCS 15, oriented to person, place, time, and situation. Cranial nerves II-XII grossly intact. Motor strength 5/5 in all extremities. Sensory grossly intact. Cerebellar exam normal. Normal gait. Psych: Awake, alert, with orientation to person, place and time. Behavior, mood, and affect are within normal limits. 06:37 ECG was reviewed by the Attending Physician. rt Vital Signs: 06:10 BP 133 / 93; Pulse 78; Resp 16; Temp 98.1(TE); Pulse Ox 94% on R/A; Weight 88.45 kg jb4 (R); Height 5 ft. 7 in. (170.18 cm) (R); Pain 0/10; 07:10 BP 128 / 95; Pulse 67; Resp 16; Pulse Ox 98% on R/A; ko1 06:10 Body Mass Index 30.54 (88.45 kg, 170.18 cm) jb4 MDM: 06:13 Patient medically screened. rt 08:42 Differential diagnosis: abnormal EKG, acute myocardial infarction, acute pericarditis, larissa Cholelithiasis esophagitis, pancreatitis, peptic ulcer disease, stable angina, unstable angina. HEART Score: History: Slightly Suspicious (0), ECG: Normal (0), Age: < or = 45 years (0), Risk Factors: > or = 3 Risk factors for atherosclerotic disease (2), [Hypercholesterolemia] [Hypertension] [+ Family HX] Troponin: < or = 1 x Normal Limit (0). ANGELA Risk Score: 1 - Three or more CAD risk factors, TOTAL SCORE = 1. Data reviewed: vital signs, nurses notes, lab test result(s), EKG, radiologic studies, plain films. Consideration of Admission/Observation Escalation of care including admission/observation considered. 09/25 06:19 Order name: CBC with Diff rt 09/25 06:19 Order name: CMP rt 09/25 06:19 Order name: Troponin High Sensitivity rt 09/25 06:19 Order name: Lipase rt 09/25 06:19 Order name: ETOH Level rt 09/25 06:44 Order name: CBC with Automated Diff; Complete Time: 06:50 EDMS 09/25 06:19 Order name: EKG; Complete Time: 06:19 rt 09/25 06:19 Order name: EKG - Nurse/Tech; Complete Time: 06:32 rt 09/25 06:57 Order name: Alcohol Serum/Plasma; Complete Time: 07:03 EDMS 09/25 07:24 Order name: Comprehensive Metabolic Panel; Complete Time: 08:26 EDMS 09/25 07:24 Order name: Troponin High Sensitivity; Complete Time: 08:26 EDMS 09/25 07:24 Order name: Lipase; Complete Time: 08:26 EDMS EC:37 Rate is 73 beats/min. Rhythm is regular. QRS [place] is Normal. Right axis deviation rt noted. UT interval is normal. QRS interval is normal. QT interval is normal. No Q waves. T waves are Normal. No ST changes noted. Interpreted by me. Administered Medications: 08:53 Drug: Aspirin 81 mg Route: PO; ko1 Disposition Summary: 09/25/22 08:44 Discharge Ordered Location: Home larissa Problem: new larissa Symptoms: have improved larissa Condition: Stable larissa Diagnosis - Essential (primary) hypertension larissa - Tobacco abuse counseling larissa - Tobacco use larissa - Alcohol abuse counseling and surveillance larissa Followup: larissa - With: Private Physician - When: 2 - 3 days - Reason: Recheck today's complaints, Continuance of care, Re-evaluation by your physician Followup: larissa - With: Mustapha Harmon MD - When: 2 - 3 days - Reason: Recheck today's complaints, Re-evaluation by your physician Discharge Instructions: - Discharge Summary Sheet larissa - Hypertension, Adult larissa - Steps to Quit Smoking larissa - Health Risks of Smoking larissa - Hypertension, Adult, Llyz-wj-Kxok larissa - Alcohol Abuse and Nutrition larissa - Health Maintenance, Male larissa - Steps to Quit Smoking, Kejz-nx-Oile larissa - How to Take Your Blood Pressure, Sgob-pu-Pjri larissa - Aspirin and Your Heart larissa - Managing Your Hypertension larissa - How to Take Your Blood Pressure larissa - Smoking and Musculoskeletal Health larissa Forms: - Medication Reconciliation Form larissa - Thank You Letter larissa - Antibiotic Education larissa - Prescription Opioid Use larissa - Work release form eb Prescriptions: - Pepcid 20 mg Oral Tablet - take 1 tablet by ORAL route every 12 hours for 21 days; 42 tablet; Refills: 0, larissa Product Selection Permitted Signatures: Dispatcher [employer] Santos Barone MD MD cha Bryson, James, RN RN jb4 Lucila Ibarra RN RN ko1 Matt Cadena MD MD rt
[2022-09-25] MEDS ORDERED: ASPIRIN EC 81 MG TAB PO ONE (09:14)
[2022-09-25 09:43] VITALS: TEMP 98.1
[2022-09-25 09:53] VITALS: BP 128/95; O2SAT 98
--- NOTE | 2022-09-25 12:35 | EKG ---
Test Date: 2022-09-25 Test Time: 06:33:18 Licensed Optical Dispenser: ACE MEASUREMENT RESULTS: Intervals: Rate: 73 AK: 150 QRSD: 88 QT: 360 QTc: 396 [place]: P: 64 AK: 150 QRS: 107 T: 67 INTERPRETIVE STATEMENTS: Normal sinus rhythm Rightward axis Borderline ECG Compared to ECG 05/08/2022 09:22:31 Right-axis deviation now present ST (T wave) deviation no longer present Early repolarization no longer present Electronically Signed On 09-25-22 12:34:34 QUANTITATIVE ANALYST DEVELOPER by Mustapha Harmon
== END 2022-09-25 09:26 | disposition home or self-care (01) ==
LOC: ER 06:06
DX: I10 Essential (primary) hypertension (principal); Z72.0 Tobacco use; Z71.6 Tobacco abuse counseling; Z71.41 Alcohol abuse counseling and surveillance of alcoholic
CPT/HCPCS: 36415; 80053; 83690; 84484; 85025; 93005; 99284; G0480

== ENCOUNTER 2023-07-08 05:22 | Emergency (ER) | payer SELFPAY ==
--- OUTSIDE RECORDS SUMMARY | 2023-07-08 05:25 | XMS REPORT | Continuity of Care Document ---
:1990 Author Organization [facility] t Address [address] [facility] [address] [place] [id number] Care Team Providers Name Role Phone PCP, PATIENT DOES NOT HAVE A Primary Care Physician Unavaila ble Néstor, General Cardiology Attending Clinician Unavailable KRISHAN QUESADA Attending Clinician Unavailable Krishan Quesada MD Attending Clinician KRISHAN QUESADA Admitting Clinician Unavailable Payers Payer Name Policy Type Policy Number Effective Date Expiration Date S ource [facility] [id number] 2022 HEALTHCARE 00:00:00 Problems This patient has no known problems. Allergies, Adverse Reactions, Alerts Allergy Allergy Status Severity Reaction(s) Onset Inactive Treating Comm ents Source Name Type Date Date Clinician NO KNOWN Drug Active Univers ALLERGIE Class ity of S [facility] Social History Social Habit Start Date Stop Date Quantity Comments Source Sexual orientation [facility] Sex Assigned At [birth year] [facility] 00:00:00 00:00:00 Medical Branch Smoking Status Start Date Stop Date Source Tobacco smoking consumption [facility] Branch Medications This patient has no known medications. Vital Signs Vital Name Observation Time Observation Value Comments Source Systolic blood 2023-05-13 19:00:00 136 mm[Hg] Univer sity of pressure [facility] Diastolic blood 2023-05-13 19:00:00 81 mm[facility]Hg[facility] 2023-05-13 19:00:00 78 /min [facility] Respiratory rate 2023-05-13 19:00:00 20 /min [facility] Oxygen saturation in 2023-05-13 19:00:00 97 /min [facility] Arterial blood by [facility] Pulse oximetry Branch Body temperature 2023-05-13 16:04:00 36.83 Salena [facility] Body height 2023-05-13 16:04:00 170.2 cm [facility] Body weight 2023-05-13 16:04:00 91.627 kg [facility] BMI 2023-05-13 16:04:00 31.64 kg/m2 [facility] Procedures Procedure Date / Time Performing Clinician Source Performed TROPONIN I 2023-05-13 18:17:00 Krishan Quesada [facility] XR CHEST 1 VW 2023-05-13 17:48:49 Krishan Quesada [facility] URINALYSIS 2023-05-13 16:48:00 Krishan Quesada [facility] URINE DRUG (IMMUNOASSAY) 2023-05-13 16:48:00 Krishan Quesada [facility] SCREEN W/O REFLEX LIPASE 2023-05-13 16:15:00 Krishan Quesada [facility] TROPONIN I 2023-05-13 16:15:00 Krishan Quesada [facility] COMP. METABOLIC PANEL 2023-05-13 16:15:00 Krishan Quesada [facility] sity [facility] ([id number]) [facility] ETHANOL 2023-05-13 16:15:00 Krishan Quesada [facility] CBC WITH DIFF 2023-05-13 16:15:00 Krishan Quesada [facility] PROTHROMBIN TIME / INR 2023-05-13 16:15[facility]00 [facility] 2023-05-13 16:15:00 Krishan Quesada [facility] N-TERMINAL PRO-BNP 2023-05-13 16:15:[address] [facility] HB ECG ROUTINE & RHYTHM 2023-05-13 16:07:23 Krishan Quesada [facility] Encounters Start End Encounter Admission Attending Care Care Encounter Source Date/Time Date/Time Type Type Clinicians Facility Department ID 2023-05-15 2023-05-15 Letter Néstor, [facility] [id number] Univers 00:00:00 00:00:00 (Out) General HEALTH [id number] it y of Cardiology CLEAR [id number] T rosalba MAHNOMEN [id number] [place] [id number] [place] OFFICE BUILDING 2023-05-13 2023-05-13 Emergency X DIPAK [facility] ERT [id number] Univers 11:03:00 14:31:00 KRISHAN villegas of [facility] 2023-05-13 2023-05-13 Emergency [facility] [id number] Univers 11:03:00 14:31:00 Krishan BRADLEY [id number] i ty of [place] 4.2.7.2.686 [facility] [id number] [address] Results Test Description Test Time Test Comments Results Result Comments Source TROPONIN I 2023-05-13 19:06:24 Test Item Value Reference Range Interpretation Comme nts TROPONIN I (test code = 8792448903) <=0.034 SHWETA (test code = SHWETA) Reference (Normal) Range (defined by the 99th percentile reference limit): <= 0.034 ng/mL Note: Cardiac troponin begins to rise 3-4 hours after the onset of ischemia. Repeat in 4-6 hours if the sample was drawn within 3-4 hours of the onset of the symptom and found normal. Diagnosis of myocardial injury is made with acute changes in cTn concentrations with at least one serial sample above the 99th percentile upper reference limit (URL), taken together with the patient's clinical presentation. Biotin has been reported to cause a negative bias, interpret results relative to patient's use of biotin. Lab Interpretation (test code = Normal 18010-3) [facility]22:05 Test Item Value Reference Range Interpretation Comments ALCOHOL (test code = 25 mg/dL 9562509751) SHWETA (test code = SHWETA) <10 Tmagxbim35-828 Toxic>100 Depression of MANAGER CHANNEL>400 Fatalities Reported [facility] [id number] 17:34:47 Test Item Value Reference Range Interpretation Comments NT-proBNP (test code = 53933-6) <=125 Lab Interpretation (test code = Normal 48918-2) [facility] [id number] 17:26:01 Test Item Value Reference Range Interpretation Comments TROPONIN I (test code = <=0.034 7136698538) SHWETA (test code = SHWETA) Reference (Normal) Range (defined by the 99th percentile reference limit): <= 0.034 ng/mL Note: Cardiac troponin begins to rise 3-4 hours after the onset of ischemia. Repeat in 4-6 hours if the sample was drawn within 3-4 hours of the onset of the symptom and found normal. Diagnosis of myocardial injury is made with acute changes in cTn concentrations with at least one serial sample above the 99th percentile upper reference limit (URL), taken together with the patient's clinical presentation. Biotin has been reported to cause a negative bias, interpret results relative to patient's use of biotin. Lab Interpretation Normal (test code = 41441-8) [facility] METABOLIC PANEL ([id number])2023-05-13 17:17:22 Test Item Value Reference Range Interpretation Comments NA (test code = 137 mmol/L 135-145 0236094309) K (test code = 3.6 mmol/L 3.5-5.0 0244465713) CL (test code = 100 mmol/L 98-108 2625431440) CO2 TOTAL (test code = 18 mmol/L 23-31 L 2672491087) AGAP (test code = 19 2-16 H 3525638320) BUN (test code = 13 mg/dL 7-23 9229048260) GLUCOSE (test code = 99 mg/dL 70-110 5679164916) CREATININE (test code = 0.81 mg/dL 0.60-1.25 4689725271) TOTAL BILI (test code = 0.5 mg/dL 0.1-1.3 7732419777) CALCIUM (test code = 8.9 mg/dL 8.6-10.6 7244659207) T PROTEIN (test code = 8.5 g/dL 6.3-8.2 H 7700188009) ALBUMIN (test code = 4.8 g/dL 3.5-5.0 0279496722) ALK PHOS (test code = 71 U/L 34-122 0584194461) ALTv (test code = 32 U/L 5-50 1742-6) AST(SGOT) (test code = 27 U/L 13-40 0807929209) eGFR (test code = 110.4 mL/min/1.73m2 7105361746) SHWETA (test code = SHWETA) Association of Glomerular Filtration Rate (GFR) and Staging of Kidney Disease* + --+ --+ ------+| GFR (mL/min/1.73 m2) ?| With Kidney Damage ?| ?Without Kidney Damage+ --------+ --------+ +| ?>90 ?| ?Stage one ?| ? Normal ?+ ---+ ---+ -------+| ?60-89 ?| ?Stage two ?| ? Decreased GFR ? + --+ --+ ------+| ?30-59 ?| ?Stage three ?| ? Stage three ? + --+ --+ ------+| ?15-29 ?| ?Stage four ? | ? Stage four ?+ ---+ ---+ -------+| ?<15 (or dialysis) ? ?| ?Stage five ? | ? Stage five ?+ ---+ ---+ -------+ *Each stage assumes the associated GFR level has been in effect for at least three months. ?Stages 1 to 5, with or without kidney disease, indicate chronic kidney disease. Notes: Determination of stages one and two (with eGFR >59mL/min/1.73 m2) requires estimation of kidney damage for at least three months as defined by structural or functional abnormalities of the kidney, manifested by either:Pathological abnormalities or Markers of kidney damage (including abnormalities in the composition of the blood or urine or abnormalities in imaging tests). Lab Interpretation Abnormal (test code = 13616-0) [facility] 17:17:00 Test Item Value Reference Range Interpretation Comments LIPASE (test code = 5450182085) 56 U/L 0-220 Lab Interpretation (test code = Normal 85758-1) [facility] THRM[facility]AS [id number] 17:14:19 Test Item Value Reference Range Interpretation Comments APTT Patient (test 30 See_Comment [Automat ed code = 3173-2) message] The system which generated this result transmitted reference range : 23 - 38 Seconds . The reference range was not used to interpr et this result as normal/abnormal . SHWETA (test code = SHWETA) The [facility] patient population mean normal value for aPTT is 30 seconds. Lab Interpretation Normal (test code = 97601-5) [facility] / [id number] 17:11:57 Test Item Value Reference Range Interpretation Comments PROTIME PATIENT (test 13.0 See_Comment [Auto mated message] code = 5964-2) The system wh ich generated this result transmitted ref erence range: 12.0 - 1 4.7 Seconds. The re ference range was not u sed to interpret this result as normal/abnor mal. INR (test code = 6301-6) 1.0 Nor mal INR <1.1; Warfarin Therap eutic range 2.0 to 3. 0 or 2.5 to 3.5, dep ending upon the indica tions. Lab Interpretation (test Normal code = 07603-8) [facility] WITH [id number] 16:50:17 Test Item Value Reference Range Interpretation Comments WBC (test code = 9.45 See_Comment [Automated 6690-2) message] The sy stem which generated this result transmitted reference range : 4.20 - 10.70 10*3/?L. The reference range was not used to interpret this result as normal/abnormal . RBC (test code = 5.36 See_Comment [Automated 269-8) message] The sy stem which generated this result transmitted reference range : 4.26 - 5.52 10*6/?L. The reference range was not used to interpret this result as normal/abnormal . HGB (test code = 17.5 g/dL 12.2-16.4 H 718-7) HCT (test code = 47.5 % 38.4-49.3 4544-3) MCV (test code = 88.6 fL 81.7-95.6 787-2) MCH (test code = 32.6 pg 26.1-32.7 785-6) MCHC (test code = 36.8 g/dL 31.2-35.0 H 786-4) RDW-SD (test code = 36.7 fL 38.5-51.6 L 97875-2) RDW-CV (test code = 11.6 % 12.1-15.4 L 788-0) PLT (test code = 251 See_Comment [Automated 777-3) message] The sy stem which generated this result transmitted reference range : 150 - 328 10*3/ ?L. The reference r joshua was not used to interpret this result as normal/abnormal . MPV (test code = 10.2 fL 9.8-13.0 24646-2) NRBC/100 WBC (test 0.0 See_Comment [Automat ed code = 1085540990) message] The system which generated this result transmitted reference range : 0.0 - 10.0 /100 WBCs. The refer ence range was not u sed to interpret th is result as normal/abnormal . NRBC x10^3 (test code See_Comment [Auto mated = 1449857501) message] The s ystem which generated this result transmitted reference range : 10*3/?L. The reference range was not used to interpret this result as normal/abnormal . GRAN MAT (NEUT) % 60.0 % (test code = 770-8) IMM GRAN % (test code 1.00 % = 1350876634) LYMPH % (test code = 28.1 % 736-9) MONO % (test code = 9.3 % 5905-5) EOS % (test code = 1.1 % 713-8) BASO % (test code = 0.5 % 706-2) GRAN MAT x10^3(ANC) 5.67 10*3/uL 1.99-6.95 (test code = 3944623918) IMM GRAN x10^3 (test 0.09 10*3/uL 0.00-0.06 H code = 6751211345) LYMPH x10^3 (test code 2.66 10*3/uL 1.09-3.23 = 731-0) MONO x10^3 (test code 0.88 10*3/uL 0.36-1.02 = 742-7) EOS x10^3 (test code = 0.10 10*3/uL 0.06-0.53 711-2) BASO x10^3 (test code 0.05 10*3/uL 0.01-0.09 = 704-7) Lab Interpretation Abnormal (test code = 37625-8) [facility]"
[2023-07-08 05:58] LABS: Absolute Lymphocytes (CBC) 2.7 K/uL (0.7-4.9); Hematocrit 45.3 % (39.6-49.0); Lymphocytes % 33.2 % (15.3-44.8); MCV 90.1 fL (80-100); Platelets 266 thou/uL (152-406); RBC Red Blood Cell Count 5.02 M/uL (4.33-5.43)
[2023-07-08 06:09] LABS: Potassium 3.6 mEq/L (3.5-5.1); Troponin High Sensitivity 4.9 pg/mL (<58.9)
--- NOTE | 2023-07-08 06:52 | ER ---
Nurse's Notes [facility] Name: Zeyad Alfonso Age: 33 yrs Sex: Male : 1990 Arrival Date: 07/08/2023 Time: 05:22 Bed 2 Private MD: Diagnosis: Essential (primary) hypertension;Chest discomfort Presentation: 07/08 05:27 Chief complaint: Patient states: "I was sitting in bed and started to feel dizzy, jw7 nauseous, and hot. Thought my blood pressure might be high because this is how I feel when it's elevated". Coronavirus screen: At this time, the client does not indicate any symptoms associated with coronavirus-19. Ebola Screen: No symptoms or risks identified at this time. Initial Sepsis Screen: Does the patient meet any 2 criteria? No. Patient's initial sepsis screen is negative. Does the patient have a suspected source of infection? No. Patient's initial sepsis screen is negative. Risk Assessment: Do you want to hurt yourself or someone else? Patient reports no desire to harm self or others. Onset of symptoms was July 08, 2023 at 04:30. 05:27 Method Of Arrival: EMS: [facility] 7 05:27 Acuity: JAZ 3 jw7 Triage Assessment: 05:30 General: Appears in no apparent distress. comfortable, Behavior is calm, cooperative. jw7 Pain: Denies pain. EENT: No deficits noted. No signs and/or symptoms were reported regarding the EENT system. Neuro: Wilburn Agitation-Sedation Scale (RASS): 0 - Alert and Calm Level of Consciousness is awake, alert, obeys commands, Oriented to person, place, time, situation. Cardiovascular: Reports lightheadedness, nausea, Denies chest pain, Heart tones S1 S2 present Capillary refill < 3 seconds Clubbing of nail beds is absent JVD is absent Patient's skin is warm and dry. Rhythm is sinus rhythm. Respiratory: Airway is patent Trachea midline Respiratory effort is even, unlabored, Respiratory pattern is regular, symmetrical, Breath sounds are clear bilaterally. GI: No deficits noted. No signs and/or symptoms were reported involving the gastrointestinal system. : No deficits noted. No signs and/or symptoms were reported regarding the genitourinary system. Derm: No deficits noted. No signs and/or symptoms reported regarding the dermatologic system. Musculoskeletal: No deficits noted. No signs and/or symptoms reported regarding the musculoskeletal system. Historical: - Allergies: 05:30 No Known Allergies; jw7 - Home Meds: 05:30 metoprolol tartrate Oral [Active]; gemfibrozil 600 mg oral tablet [Active]; jw7 - PMHx: 05:30 Hyperlipidemia; Hypertensive disorder; jw7 - PSHx: 05:30 Chin (Broken); jw7 - Immunization history:: Adult Immunizations up to date, Client reports having NOT received the Covid vaccine. Flu vaccine is not up to date. - Social history:: Smoking status: Reported history of juuling and/or vaping. Patient/guardian denies using alcohol, street drugs, IV drugs. Screenin:33 [facility] ED Fall Risk Assessment (Adult) History of falling in the last 3 months, jw7 including since admission No falls in past 3 months (0 pts) Score/Fall Risk Level 0 - 2 = Low Risk Oriented to surroundings, Maintained a safe environment. Abuse screen: Denies threats or abuse. Denies injuries from another. Nutritional screening: No deficits noted. Tuberculosis screening: No symptoms or risk factors identified. Assessment: 05:34 General: see triage assessment. jw7 06:30 Reassessment: Patient appears in no apparent distress at this time. Patient and/or jw7 family updated on plan of care and expected duration. Pain level reassessed. Patient is alert, oriented x 3, equal unlabored respirations, skin warm/dry/pink. Patient states feeling better. 07:24 Reassessment: No changes from previously documented assessment. Patient and/or family mb9 updated on plan of care and expected duration. Pain level reassessed. Patient is alert, oriented x 3, equal unlabored respirations, skin warm/dry/pink. Vital Signs: 05:27 BP 157 / 93; Pulse 66; Resp 12; Temp 98.8; Pulse Ox 99% ; Weight 92.99 kg; Height 5 ft. jw7 7 in. ; Pain 0/10; 05:48 BP 140 / 82; Pulse 69; Resp 14 S; Pulse Ox 99% on R/A; jw7 06:45 BP 137 / 86; Pulse 73; Resp 24 S; Pulse Ox 97% on R/A; jw7 07:23 BP 128 / 84; Pulse 70; Resp 16; Pulse Ox 99% ; mb9 05:27 Body Mass Index 32.11 (92.99 kg, 170.18 cm) jw7 05:27 Pain Scale: Adult jw7 ED Course: 05:23 Patient arrived in ED. jj6 05:27 Iris Elliott, RN is Primary Nurse. jw7 05:27 Inserted saline lock: 20 gauge in right antecubital area, using aseptic technique. lg3 Blood collected. 05:29 Kevin Torres DO is Attending Physician. ms3 05:30 Triage completed. jw7 05:30 Arm band placed on. jw7 05:33 Patient has correct armband on for positive identification. Placed in gown. Bed in low jw7 position. Call light in reach. Side rails up X 1. 05:47 Initial lab(s) drawn, by me, sent to lab. EKG done, by ED staff, reviewed by Kevin Torres DO. 06:36 XRAY Chest (1 view) In Process Unspecified. EDMS 06:52 Rich Young DO is Referral Physician. ms3 06:59 No provider procedures requiring assistance completed. jw7 07:24 IV discontinued, intact, bleeding controlled, No redness/swelling at site. Pressure mb9 dressing applied. Administered Medications: No medications were administered Medication: 07:00 VIS not applicable for this client. jw7 Outcome: 06:52 Discharge ordered by . ms3 07:24 Discharged to home ambulatory, mb9 07:24 Condition: stable 07:24 Discharge instructions given to patient, Instructed on discharge instructions, follow up and referral plans. Demonstrated understanding of instructions, follow-up care, 07:24 Patient left the ED. mb9 Signatures: Dispatcher [employer] EDMS Rosalie Mae, RN RN lg3 Kevin Torres DO DO ms3 Elba Sandra jj6 Iris Elliott, RN RN jw7 Ana M Pinedo RN RN mb9 Corrections: (The following items were deleted from the chart) 05:31 05:30 PSHx: None; jw7 jw7
--- NOTE | 2023-07-08 06:52 | EDPHYS ---
Physician Documentation [facility] Name: Zeyad Alfonso Age: 33 yrs Sex: Male : 1990 Arrival Date: 07/08/2023 Time: 05:22 Bed 2 Private MD: ED Physician Kevin Torres HPI: 07/08 05:30 This 33 yrs old Male presents to ER via EMS with complaints of High Blood ms3 Pressure. 05:30 33-year-old male with past medical history of hypertension presents via [place] [id number] [facility] for dizziness, nausea, sensation of being hot that began at 2 AM. Patient states when he feels this way his blood pressure is usually elevated. Patient states he took metoprolol at 2 AM and at 3 AM. EMS notes on arrival patient's blood pressure was 163/108. EMS notes patient's heart rate is normal sinus rhythm on the monitor patient denies chest pain at this time. Patient denies any alleviating or inciting factors.. Historical: - Allergies: 05:30 No Known Allergies; jw7 - Home Meds: 05:30 metoprolol tartrate Oral [Active]; gemfibrozil 600 mg oral tablet [Active]; jw7 - PMHx: 05:30 Hyperlipidemia; Hypertensive disorder; jw7 - PSHx: 05:30 Chin (Broken); jw7 - Immunization history:: Adult Immunizations up to date, Client reports having NOT received the Covid vaccine. Flu vaccine is not up to date. - Social history:: Smoking status: Reported history of juuling and/or vaping. Patient/guardian denies using alcohol, street drugs, IV drugs. ROS: 05:30 Neck: Negative for injury, pain, and swelling, Cardiovascular: Negative for chest pain, ms3 and palpitations. Respiratory: Negative for shortness of breath, cough, wheezing, and pleuritic chest pain, MS/Extremity: Negative for injury and deformity, Skin: Negative for injury, rash, and discoloration, 05:30 All other systems are negative, 05:30 Constitutional: Positive for Flushed sensation, ms3 05:30 Abdomen/GI: Positive for nausea, Negative for vomiting, diarrhea, Exam: 05:30 Constitutional: This is a well developed, well nourished patient who is awake, alert, ms3 and in no acute distress. Head/Face: Normocephalic, atraumatic. Neck: Trachea midline, no cervical lymphadenopathy. Supple, full range of motion without nuchal rigidity, or vertebral point tenderness. No Meningismus. Chest/axilla: Normal chest wall appearance and motion. Nontender with no deformity. Cardiovascular: Regular rate and rhythm with a normal S1 and S2. No gallops, murmurs, or rubs. Normal PMI, no JVD. No pulse deficits. Respiratory: Lungs have equal breath sounds bilaterally, clear to auscultation and percussion. No rales, rhonchi or wheezes noted. No increased work of breathing, no retractions or nasal flaring. Abdomen/GI: Soft, non-tender, with normal bowel sounds. No distension or tympany. No guarding or rebound. No evidence of tenderness throughout. Skin: Warm, dry with normal turgor. Normal color with no rashes, no lesions, and no evidence of cellulitis. MS/ Extremity: Pulses equal, no cyanosis. Neurovascular intact. Full, normal range of motion. 05:51 ECG was reviewed by the Attending Physician. ms3 Vital Signs: 05:27 BP 157 / 93; Pulse 66; Resp 12; Temp 98.8; Pulse Ox 99% ; Weight 92.99 kg; Height 5 ft. jw7 7 in. ; Pain 0/10; 05:48 BP 140 / 82; Pulse 69; Resp 14 S; Pulse Ox 99% on R/A; jw7 06:45 BP 137 / 86; Pulse 73; Resp 24 S; Pulse Ox 97% on R/A; jw7 07:23 BP 128 / 84; Pulse 70; Resp 16; Pulse Ox 99% ; mb9 05:27 Body Mass Index 32.11 (92.99 kg, 170.18 cm) jw7 05:27 Pain Scale: Adult jw7 MDM: 05:29 Patient medically screened. ms3 05:30 Differential diagnosis: hypertensive crisis, Mi vs Anxiety. ms3 06:52 Data reviewed: vital signs, nurses notes, lab test result(s), EKG, radiologic studies, ms3 and as a result, I will discharge patient. Independent interpretation of the following test(s) in the Emergency Department EKG: See my EKG interpretation above. Historians other than the Patient: EMS: [facility]. Care significantly affected by the following Social Determinants of Health: Poor access to healthcare and/or lack of insurance. Counseling: I had a detailed discussion with the patient and/or guardian regarding the historical points, exam findings, and any diagnostic results supporting the discharge/admit diagnosis, lab results, radiology results, the need for outpatient follow up, to return to the emergency department if symptoms worsen or persist or if there are any questions or concerns that arise at home. Special discussion: Based on the patient's history, exam, and Dx evaluation, there is no indication for emergent intervention or inpatient Tx. It is understood by the patient/guardian that if the Sx's persist or worsen they need to return immediately for re-evaluation. ED course: Discussed labs, chest x-ray, EKG with patient. Patient to follow-up with primary care physician in 2 to 3 days. Patient understands and agrees with plan. All questions were answered. Return precautions discussed include worsening symptoms, or any other concerns. On reevaluation patient symptoms have improved, patient is alert and oriented x4, no apparent distress, nontoxic-appearing, ambulatory emergency room, speaking full sentences. 07/08 05:27 Order name: Basic Metabolic Panel; Complete Time: 06:11 3 07/08 05:27 Order name: CBC with Diff; Complete Time: 06:11 3 07/08 05:27 Order name: Troponin HS; Complete Time: 06:11 3 07/08 05:27 Order name: XRAY Chest (1 view) [facility] 07/08 05:27 Order name: EKG; Complete Time: 05:28 3 07/08 05:27 Order name: Cardiac monitoring; Complete Time: 05:40 3 07/08 05:27 Order name: EKG - Nurse/Tech; Complete Time: 05:48 3 07/08 05:27 Order name: IV Saline Lock; Complete Time: 05:39 3 07/08 05:27 Order name: Labs collected and sent; Complete Time: 05:39 3 07/08 05:27 Order name: O2 Per Protocol; Complete Time: 05:39 3 07/08 05:27 Order name: O2 Sat Monitoring; Complete Time: 05:39 lg3 EC:51 Rate is 61 beats/min. Rhythm is regular. QRS [place] is Normal. VT interval is normal. QRS ms3 interval is normal. Clinical impression: Normal ECG. Interpreted by me. Reviewed by me. Administered Medications: No medications were administered Disposition Summary: 07/08/23 06:52 Discharge Ordered Notes: Location: Home ms3 Condition: Stable ms3 Diagnosis - Essential (primary) hypertension ms3 - Chest discomfort ms3 Followup: ms3 - With: Rich Young DO - When: 2 - 3 days - Reason: Recheck today's complaints Discharge Instructions: - Discharge Summary Sheet ms3 - Hypertension, Adult ms3 - DASH Eating Plan ms3 Forms: - Medication Reconciliation Form ms3 - Thank You Letter ms3 - Antibiotic Education ms3 - Prescription Opioid Use ms3 - Patient Portal Instructions ms3 - Leadership Thank You Letter ms3 Signatures: Dispatcher [employer] Rosalie Greco RN RN lg3 Kevin Torres DO DO ms3 Iris Elliott RN RN jw7 Corrections: (The following items were deleted from the chart) 05:31 05:30 PSHx: None; jw7 jw7 05:38 05:30 Constitutional: Negative for fever, and chills. Neck: Negative for injury, pain, ms3 and swelling, Cardiovascular: Negative for chest pain, and palpitations. Respiratory: Negative for shortness of breath, cough, wheezing, and pleuritic chest pain, Abdomen/GI: Negative for abdominal pain, nausea, vomiting, diarrhea, and constipation, MS/Extremity: Negative for injury and deformity, Skin: Negative for injury, rash, and discoloration, ms3
[2023-07-08 07:29] VITALS: TEMP 98.8
[2023-07-08 07:34] VITALS: BP 128/84; O2SAT 99
--- NOTE | 2023-07-09 10:34 | RAD REPORT ---
EXAM DESCRIPTION: RAD - Chest Single View - 07/08/2023 11:05 am CLINICAL HISTORY: The patient is 33 years old and is Male; generalized weakness TECHNIQUE: Frontal view of the chest. COMPARISON: No relevant prior studies available. FINDINGS: Lungs: Unremarkable. No consolidation. Pleural space: Unremarkable. No pneumothorax. Heart: Unremarkable. Mediastinum: Unremarkable. Normal mediastinal contour. Bones/joints: No acute findings. IMPRESSION: No acute findings in the chest. Electronically signed by: Santos Diaz MD 07/08/2023 06:41 AM EMERGENCY VETERINARIAN Due to temporary technical issues with the PACS/Fluency reporting system, reports are being signed by the in house radiologist without review as a courtesy to ensure prompt reporting. The interpreting r adiologist is fully responsible for the content of the report.
--- NOTE | 2023-07-10 13:37 | EKG ---
Test Date: 2023-07-08 Test Time: 05:45:03 Manager Physical: DESTINEY MEASUREMENT RESULTS: Intervals: Rate: 61 ID: [id number] QRSD: 88 QT: 382 QTc: 384 [place]: P: 20 ID: [id number] QRS: 31 T: 16 INTERPRETIVE STATEMENTS: Normal sinus rhythm Normal ECG Compared to ECG 09/25/2022 06:33:18 Right-axis deviation no longer present Electronically Signed On 07-10-23 13:29:22 COLOR CARD MAKER by Mustapha Harmon
== END 2023-07-08 07:24 | disposition home or self-care (01) ==
LOC: ER 05:22
DX: I10 Essential (primary) hypertension (principal); R07.89 Other chest pain
CPT/HCPCS: 36415; 71045; 80048; 84484; 85025; 93005; 99284

== ENCOUNTER → 2023-07-31 | Emergency (ER) | payer SELFPAY ==
--- OUTSIDE RECORDS SUMMARY | 2023-07-31 08:43 | XMS REPORT | Continuity of Care Document ---
Author Name Unknown Address [address] [facility]. [address] [place] [address] [facility] thconnect Address [address] [facility] [address] [place] [address] Care Team Providers Care Biztalk Software Developer Name Role Phone PCP, PATIENT DOES NOT HAVE A Primary Care Physic nirmal Unavailable Néstor, General Cardiology Attending Clinician Unav ailable KRISHAN QUESADA Attending Clinician Unavailable Krishan Quesada MD Attending Clinician [phone] KRISHAN QUESADA Admitting Clinician Unavailable Payers Payer Name Policy Type Policy Number Effective Date Expirati on Date Source [facility] [id number] 2022 00:00:00 Allergies, Adverse Reactions, Alerts Allergy Name Allergy Type Status Severity Reaction(s) Onset Date Inactive Date Treating Clinician Comments Source NO KNOWN ALLERGIE S Drug Class Active [facility] Social History Social Habit Start Date Stop Date Quantity Comments Source Sexual orientation U [facility] Sex Assigned At 1990 00:00:00 1990 00:00:00 [facility] Smoking Status Start Date Stop Date Source Tobacco smoking consumption unknown [facility] Vital Signs Vital Name Observation Time Observation Value Comments S jef Systolic blood pressure 2023-05-13 19:00:00 136 mm[Hg] [facility] Diastolic blood pressure 2023-05-13 19:00:00 81 mm[Hg] [facility] Heart rate 2023-05-13 19:00:00 78 /min [facility] Respiratory rate 2023-05-13 19:00:00 20 /min [facility] Oxygen saturation in Arterial blood by Pulse oximetry 2023-05-13 19:00:00 97 /min [facility] Body temperature 2023-05-13 16:04:00 36.83 Salena [facility] Body height 2023-05-13 16:04:00 [facility] Body weight 2023-05-13 16:04:00 91.627 [facility] BMI 2023-05-13 16:04:00 31.64 kg/m2 [facility] Procedures Procedure Date / Time Performed Performing Clinician Source TROPONIN I 2023-05-13 18:17:00 [facility] X[facility] CHEST 1 VW 2023-05-13 17:48:49 Krishan Quesada [facility] URINALYSIS 2023-05-13 16:48:00 [facility] URINE DRUG (IMMUNOASSAY) - COMPREHENSIVE DRUG SCREEN W/O REFLEX 2023-05-13 16:48:00 Krishan Quesada [facility] LIPASE 2023-05-13 16:15:00 [facility] TROPONIN I 2023-05-13 16:15:00 Krishan Quesada [facility] COMP. METABOLIC PANEL (99335) 2023-05-13 16:15:00 Krishan Quesada [facility] ETHANOL 2023-05-13 16:15:00 [facility] CBC WITH DIFF 2023-05-13 16:15:00 Krishan Quesada [facility] PROTHROMBIN TIME / INR 2023-05-13 16:15:00 Milind Quesada [facility] ACTIVATED PARTIAL THRMPLAS HONG 2023-05-13 16:15:00 Krishan Quesada [facility] N-TERMINAL PRO-BNP 2023-05-13 16:15:00 Krishan Quesada [facility] HB ECG ROUTINE & RHYTHM STRIP 2023-05-13 16:07:23 Krishan Quesada [facility] Encounters Start Date/Time End Date/Time Encounter Type Admission Type Attending Clinicians Care Facility Care Department Encounter ID Source 2023-05-15 00:00:00 2023-05-15 00:00:00 Letter (Out) Néstor, General Cardiology [facility] [id number] [facility] 2023-05-13 11:03:00 2023-05-13 14:31:00 Emergency [facility] [id number] [facility] 2023-05-13 11:03:00 2023-05-13 14:31:00 Emergency Krishan Quesada [facility] [id number] [facility] Results Test Description Test Time Test Comments Results Result Co mments Source [facility]23-10-[facility] 18:22:05* Test Item Value Reference Range Interpretation Comme nts ALCOHOL (test code = 8339280986) 25 mg/dL SHWETA (test code = SHWETA) <10 [id number] Toxic>100 Depression of [employer]>400 Fatalities Reported [facility] [id number] 17:34:47* Test Item Value Reference Range Interpretation Comme [facility] NT-proBNP (test code = 94776-9) <=125 Lab Interpretation (test cod e = 30166-7) Normal [facility] [id number] 17:26:01* Test Item Value Reference Range Interpretation Comme [facility] TROPONIN I (test code = 3968884147) <=0.034 SHWETA (test code = SHWETA) Reference [...] of biotin. Lab Interpretation (test code = 84254-5) Normal [facility] MET[facility]OLIC PANEL (24230)2023-05-13 17:17:22* Test Item Value Reference Range Interpretation Comme nts NA (test code = 8306871747) 137 mmol/L 135-145 K (test code = 0387872898) 3.6 mmol/L 3.5-5.0 CL (test code = 1424672284) 100 mmol/L 98-108 CO2 TOTAL (test code = 0895832735) 18 mmol/L 23-31 L AGAP (test code = 4258688827) 19 2-16 H BUN (test code = 4190661961) 13 mg/dL 7-23 GLUCOSE (test code = 5445958955) 99 mg/dL 70-110 CREATININE (test code = 8138723690) 0.81 mg/dL 0.60-1.25 TOTAL BILI (test code = 2177376543) 0.5 mg/dL 0.1-1.1 CALCIUM (test code = 1108827571) 8.9 mg/dL 8.6-10.6 T PROTEIN (test code = 2032212506) 8.5 g/dL 6.3-8.2 H ALBUMIN (test code = 8810371268) 4.8 g/dL 3.5-5.0 ALK PHOS (test code = 3502762511) 71 U/L 34-122 ALTv (test code = 1742-6) 32 U/L 5-50 AST(SGOT) (test code = 4742976697) 27 U/L 13-40 eGFR (test code = 1040293490) 110.4 mL/min/1.73m2 SHWETA (test code = SHWETA) Association of [...] or abnormalities in imaging tests). Lab Interpretation (test code = 48739-6) Abnormal [facility]2023-10-08 17:17:00* Test Item Value Reference Range Interpretation Comme [facility] LIPASE (test code = 3617708394) 56 U/L 0-220 Lab Interpretation (test cod e = 33722-2) Normal [facility] THRMPLAS [id number] 17:14:19* Test Item Value Reference Range Interpretation Comme [facility] APTT Patient (test code = 3173-2) 30 See_Comment [Automated message] The system which generated this result transmitted reference range: 23 - 38 Seconds. The reference range was not used to interpret this result as normal/abnormal. SHWETA (test code = SHWETA) [facility] patient population mean normal value for aPTT is 30 seconds. Lab Interpretation (test code = 53681-0) Normal [facility] / [id number] 17:11:57* Test Item Value Reference Range Interpretation Comme [facility] PROTIME PATIENT (test code = 5964-2) 13.0 See_Comment [Automated [employer] ge] The system which generated this result transmitted reference range: 12.0 - 14.7 Seconds. The reference range was not used to interpret this result as normal/abnormal. INR (test code = 6301-6) 1.0 Normal INR <1.1; Warfarin Therapeutic range 2.0 to 3.0 or 2.5 to 3.5, depending upon the indications. Lab Interpretation (test code = 88796-1) Normal [facility] WITH [id number] 16:50:17* Test Item Value Reference Range Interpretation Comme nts WBC (test code = 6690-2) 9.45 See_Comment [Automated messa ge] The system which generated this result transmitted reference range: 4.20 - 10.70 10*3/?L. The reference range was not used to interpret this result as normal/abnormal. RBC (test code = 789-8) 5.36 See_Comment [Automated messa ge] The system which generated this result transmitted reference range: 4.26 - 5.52 10*6/?L. The reference range was not used to interpret this result as normal/abnormal. HGB (test code = 718-7) 17.5 g/dL 12.2-16.4 H HCT (test code = 4544-3) 47.5 % 38.4-49.3 MCV (test code = 787-2) 88.6 fL 81.7-95.6 MCH (test code = 785-6) 32.6 pg 26.1-32.7 MCHC (test code = 786-4) 36.8 g/dL 31.2-35.0 H RDW-SD (test code = 37938-8) 36.7 fL 38.5-51.6 L RDW-CV (test code = 788-0) 11.6 % 12.1-15.4 L PLT (test code = 777-3) 251 See_Comment [Automated messa ge] The system which generated this result transmitted reference range: 150 - 328 10*3/?L. The reference range was not used to interpret this result as normal/abnormal. MPV (test code = 51903-7) 10.2 fL 9.8-13.0 NRBC/100 WBC (test code = 5309936039) 0.0 See_Comment [Automated [employer] ssage] The system which generated this result transmitted reference range: 0.0 - 10.0 /100 WBCs. The reference range was not used to interpret this result as normal/abnormal. NRBC x10^3 (test code = 9568154122) See_Comment [Automated messa ge] The system which generated this result transmitted reference range: 10*3/?L. The reference range was not used to interpret this result as normal/abnormal. GRAN MAT (NEUT) % (test code = 770-8) 60.0 % IMM GRAN % (test code = 2026520757) 1.00 % LYMPH % (test code = 736-9) 28.1 % MONO % (test code = 5905-5) 9.3 % EOS % (test code = 713-8) 1.1 % BASO % (test code = 706-2) 0.5 % GRAN MAT x10^3(ANC) (test code = 8251993858) 5.67 10*3/uL 1.99-6.95 IMM GRAN x10^3 (test code = 4600031385) 0.09 10*3/uL 0.00-0.06 H LYMPH x10^3 (test code = 731-0) 2.66 10*3/uL 1.09-3.23 MONO x10^3 (test code = 742-7) 0.88 10*3/uL 0.36-1.02 EOS x10^3 (test code = 711-2) 0.10 10*3/uL 0.06-0.53 BASO x10^3 (test code = 704-7) 0.05 10*3/uL 0.01-0.09 Lab Interpretation (test code = 70206-9) Abnormal [facility]"
[2023-07-31 09:07] LABS: Absolute Lymphocytes (CBC) 2.7 K/uL (0.7-4.9); Hematocrit 49.7 % (39.6-49.0); Lymphocytes % 27.8 % (15.3-44.8); MCV 89.8 fL (80-100); Platelets 277 thou/uL (152-406); RBC Red Blood Cell Count 5.54 M/uL (4.33-5.43)
[2023-07-31 09:25] LABS: Protime INR 1.03
[2023-07-31 09:28] LABS: BUN Blood Urea Nitrogen 10 mg/dL (7-18); Bicarbonate 23 mEq/L (21-32); Glomerular Filtration Rate 87 ml/min (=/>90); Glucose Level 124 mg/dL (74-106); Potassium 3.9 mEq/L (3.5-5.1); Sodium Level 139 mEq/L (136-145)
[2023-07-31 09:30] LABS: NT PRO-BNP < 5 pg/mL (<125); Troponin High Sensitivity < 3.0 pg/mL (<58.9)
--- NOTE | 2023-07-31 09:36 | RAD REPORT ---
EXAM DESCRIPTION: CT - Head Brain Wo Cont - 07/31/2023 9:01 am CLINICAL HISTORY: HTN, headache COMPARISON: Head Brain W/Wo Con dated 05/14/2022; Head Brain Wo Cont dated 04/11/2022 TECHNIQUE: Noncontrast head CT images were obtained without IV contrast. Multiplanar reformats were generated and reviewed. All CT scans are performed using dose optimization technique as appropriate and may include automated exposure control or mA/KV adjustment according to patient size. FINDINGS: No intracranial hemorrhage, mass, or edema. Midline structures are unremarkable. Normal ventricular caliber for age. Batista-white matter differentiation is preserved, without evidence of acute infarct. No abnormal extra- axial fluid collections. Mastoid air cells and visualized portions of the paranasal sinuses are clear. No acute bony findings. IMPRESSION: No evidence of an acute intracranial process.
--- NOTE | 2023-07-31 11:39 | RAD REPORT ---
EXAM DESCRIPTION: RADChest Single View07/31/2023 9:06 am CLINICAL HISTORY: HTN COMPARISON: Chest Single View dated 07/08/2023; Chest Single View dated 04/11/2022; Chest Single View d ated 02/18/2022; Chest Single View dated 10/09/2021 TECHNIQUE: Portable AP view of the chest. FINDINGS: The lungs are clear. No pneumothorax or effusion. The cardiomediastinal contours are unre markable. IMPRESSION: No acute cardiopulmonary process.
--- NOTE | 2023-07-31 11:52 | EDPHYS ---
Physician Documentation [facility] Name: Zeyad Alfonso Age: 33 yrs Sex: Male : 1990 Arrival Date: 07/31/2023 Time: 08:41 Bed 18 Private MD: ED Physician Dov Cote HPI: 07/31 09:24 This 33 yrs old Male presents to ER via EMS with complaints of HTN. rn 09:24 The patient has elevated blood pressure and discovered this at home. Onset: The rn symptoms/episode began/occurred this morning. Modifying factors:. Associated signs and symptoms: Pertinent positives: headache, lightheadedness, Pertinent negatives: visual changes, vomiting, weakness. Severity of symptoms: At its worst the blood pressure was severe, in the emergency department the blood pressure is improved. The patient has experienced similar episodes in the past. Patient reports high blood pressure, has a history of high blood pressure, woke up with headache, lightheaded, dizzy. Blood pressure was elevated, took his morning medication, brought in by EMS. Patient already feeling better. Not back to baseline per patient. This is happened before and symptoms resolved when blood pressure improves per patient. No active chest pain or shortness of breath. No focal neurological problems.. Historical: - Allergies: 08:50 No Known Allergies; ph - Home Meds: 08:50 gemfibrozil 600 mg Oral tablet [Active]; metoprolol tartrate 25 mg oral tablet 1 tab ph daily [Active]; - PMHx: 08:50 Hyperlipidemia; Hypertensive disorder; ph - PSHx: 08:50 Chin (Broken); ph - Immunization history:: Adult Immunizations unknown. - Social history:: Smoking status: Reported history of juuling and/or vaping. Patient uses alcohol, "when I don't have to work the next day". - Family history:: not pertinent. - Hospitalizations: : No recent hospitalization is reported. ROS: 09:24 Constitutional: Negative for fever, chills, and weight loss, Eyes: Negative for injury, rn pain, redness, and discharge, Neck: Negative for injury, pain, and swelling, Cardiovascular: Negative for chest pain, palpitations, and edema, Respiratory: Negative for shortness of breath, cough, wheezing, and pleuritic chest pain, Abdomen/GI: Negative for abdominal pain, nausea, vomiting, diarrhea, and constipation, Back: Negative for injury and pain, MS/Extremity: Negative for injury and deformity, Skin: Negative for injury, rash, and discoloration, Neuro: Positive for headache, negative for focal weakness, negative for seizure Exam: 08:56 ECG was reviewed by the Attending Physician. rn 09:24 Constitutional: This is a well developed, well nourished patient who is awake, alert, rn and in no acute distress. Head/Face: Normocephalic, atraumatic. Eyes: Pupils equal round and reactive to light, extra-ocular motions intact. Periorbital areas with no swelling, redness, or edema. Neck: Trachea midline. No Meningismus. Cardiovascular: Regular rate and rhythm . No pulse deficits. Respiratory: Speaking full sentences, unlabored. No increased work of breathing, no retractions or nasal flaring. Abdomen/GI: Soft, non-tender MS/ Extremity: Pulses equal, no cyanosis. Neurovascular intact. Full, normal range of motion. Equal circumference. Neuro: Awake and alert, GCS 15, oriented to person, place, time, and situation. Cranial nerves II-XII grossly intact. Motor strength 5/5 in all extremities. Sensory grossly intact. Cerebellar exam normal. Vital Signs: 08:47 Pulse 99; Resp 18; Temp 98; Pulse Ox 97% on R/A; Weight 83.91 kg; Height 5 ft. 9 in. ; ph 09:11 BP 164 / 111; ph 09:38 BP 147 / 98; rn 09:39 BP 147 / 98; ph 09:39 Pulse 99; Resp 18; Pulse Ox 98% on R/A; ph 10:42 BP 139 / 89; Pulse 89; Resp 18; Pulse Ox 97% on R/A; ph 08:47 Body Mass Index 27.32 (83.91 kg, 175.26 cm) ph MDM: 08:49 Patient medically screened. rn 11:50 Differential diagnosis: hypertensive crisis, Malignant HTN, CVA, intracerebral rn hemorrhage. Data reviewed: vital signs, nurses notes, lab test result(s), EKG, radiologic studies, plain films, and as a result, I will discharge patient. Care significantly affected by the following chronic conditions: Hypertension. Counseling: I had a detailed discussion with the patient and/or guardian regarding the historical points, exam findings, and any diagnostic results supporting the discharge/admit diagnosis, lab results, radiology results, the need for outpatient follow up, to return to the emergency department if symptoms worsen or persist or if there are any questions or concerns that arise at home. Response to treatment: the patient's symptoms have markedly improved after treatment, and as a result, I will discharge patient. Special discussion: I have referred the patient to see his PCP for further evaluation of high blood pressure. I discussed with the patient/guardian in detail that at this point there is no indication for admission to the hospital. It is understood, however, that if the symptoms persist or worsen the patient needs to return immediately for re-evaluation. 07/31 08:48 Order name: Basic Metabolic Panel; Complete Time: 09: rn 07/31 08:48 Order name: CBC with Diff; Complete Time: rn 07/31 08:48 Order name: NT PRO-BNP; Complete Time: : rn 07/31 08:48 Order name: PT-INR; Complete Time: : rn 07/31 08:48 Order name: Troponin HS; Complete Time: : rn 07/31 08:48 Order name: XRAY Chest (1 view); Complete Time: 11:41 rn 07/31 08:48 Order name: CT Head Brain wo Cont; Complete Time: 10:54 rn 07/31 08:48 Order name: EKG; Complete Time: 08:48 rn 07/31 08:48 Order name: Cardiac monitoring; Complete Time: 08:56 rn 07/31 08:48 Order name: EKG - Nurse/Tech; Complete Time: 08:56 rn 07/31 08:48 Order name: IV Saline Lock; Complete Time: 09:07/31 08:48 Order name: Labs collected and sent; Complete Time: 09: rn 07/31 08:48 Order name: O2 Per Protocol; Complete Time: 08:56 rn 07/31 08:48 Order name: O2 Sat Monitoring; Complete Time: 08:56 rn EC:56 Rate is 100 beats/min. Rhythm is regular. QRS [place] is Normal. [place] interval is normal. rn QRS interval is normal. QT interval is normal. No Q waves. T waves are Normal. No ST changes noted. Clinical impression: Normal ECG. Reviewed by me. Administered Medications: No medications were administered Disposition Summary: 07/31/23 11:51 Discharge Ordered Notes: Location: Home rn Problem: new rn Symptoms: have improved rn Condition: Stable rn Diagnosis - Essential (primary) hypertension rn Followup: rn - With: Private Physician - When: As needed - Reason: Recheck today's complaints, Re-evaluation by your physician Discharge Instructions: - Discharge Summary Sheet rn - Hypertension, Adult rn - Heart Disease broomcorn sorter - How to Take Your Blood Pressure, Crwb-an-Cgyy rn - Managing Your Hypertension rn Forms: - Medication Reconciliation Form rn - Thank You Letter rn - Antibiotic electrical engineering intern - Prescription Opioid Use rn - Patient Portal Instructions rn - Leadership Thank You Letter rn Signatures: Dispatcher [employer] Dov Mensah MD MD rn Hall, Patricia, RN RN ph Corrections: (The following items were deleted from the chart) 09:26 09:24 Constitutional: This is a well developed, well nourished patient who is awake, rn alert, and in no acute distress. Head/Face: Normocephalic, atraumatic. Eyes: Pupils equal round and reactive to light, extra-ocular motions intact. Periorbital areas with no swelling, redness, or edema. Cardiovascular: Regular rate and rhythm . No pulse deficits. Respiratory: Speaking full sentences, unlabored. No increased work of breathing, no retractions or nasal flaring. Abdomen/GI: Soft, non-tender MS/ Extremity: Pulses equal, no cyanosis. Neurovascular intact. Full, normal range of motion. Equal circumference. Neuro: Awake and alert, GCS 15, oriented to person, place, time, and situation. Cranial nerves II-XII grossly intact. Motor strength 5/5 in all extremities. Sensory grossly intact. Cerebellar exam normal. rn
--- NOTE | 2023-07-31 11:52 | ER ---
Nurse's Notes [facility] Name: Zeyad Alfonso Age: 33 yrs Sex: Male : 1990 Arrival Date: 07/31/2023 Time: 08:41 Bed 18 Private MD: Diagnosis: Essential (primary) hypertension Presentation: 07/31 08:47 Chief complaint: EMS states: Pt called EMS for high BP, hx of hypertension, initial BP ph 140s/90s, pt state that he took home BP medication prior to EMS arrival, states that this morning he felt dizzy and SOB, also reports numbness to R arm, states that those symptoms are improving. Coronavirus screen: Vaccine status: Patient reports being unvaccinated. Ebola Screen: No symptoms or risks identified at this time. Initial Sepsis Screen: Does the patient meet any 2 criteria? No. Patient's initial sepsis screen is negative. Does the patient have a suspected source of infection? No. Patient's initial sepsis screen is negative. Risk Assessment: Do you want to hurt yourself or someone else? Patient reports no desire to harm self or others. Onset of symptoms was July 31, 2023. 08:47 Method Of Arrival: EMS: [facility] ph 08:47 Acuity: JAZ 3 ph Triage Assessment: 08:51 General: Appears in no apparent distress. Behavior is calm, cooperative. Pain: Denies ph pain. Neuro: Level of Consciousness is awake, alert, obeys commands, Oriented to person, place, time, situation, Reports dizziness, numbness in right arm. Cardiovascular: Capillary refill < 3 seconds in bilateral fingers Patient's skin is warm and dry. Respiratory: Airway is patent Respiratory effort is even, unlabored. Derm: Skin is pink, warm \\T\\ dry. Historical: - Allergies: 08:50 No Known Allergies; ph - Home Meds: 08:50 gemfibrozil 600 mg Oral tablet [Active]; metoprolol tartrate 25 mg oral tablet 1 tab ph daily [Active]; - PMHx: 08:50 Hyperlipidemia; Hypertensive disorder; ph - PSHx: 08:50 Chin (Broken); ph - Immunization history:: Adult Immunizations unknown. - Social history:: Smoking status: Reported history of juuling and/or vaping. Patient uses alcohol, "when I don't have to work the next day". - Family history:: not pertinent. - Hospitalizations: : No recent hospitalization is reported. Screenin:52 [facility] ED Fall Risk Assessment (Adult) History of falling in the last 3 months, ph including since admission No falls in past 3 months (0 pts) Score/Fall Risk Level 0 - 2 = Low Risk Oriented to surroundings, Maintained a safe environment, Provided non-skid footwear, Hourly rounding (assess needs \\T\\ fall precautionary measures) done. Abuse screen: Denies threats or abuse. Denies injuries from another. Nutritional screening: No deficits noted. Tuberculosis screening: No symptoms or risk factors identified. Assessment: 09:02 Reassessment: Pt taken to CT via stretcher. ph 11:15 Reassessment: Patient appears in no apparent distress at this time. Patient and/or ph family updated on plan of care and expected duration. Pain level reassessed. Patient is alert, oriented x 3, equal unlabored respirations, skin warm/dry/pink. Vital Signs: 08:47 Pulse 99; Resp 18; Temp 98; Pulse Ox 97% on R/A; Weight 83.91 kg; Height 5 ft. 9 in. ; ph 09:11 BP 164 / 111; ph 09:38 BP 147 / 98; rn 09:39 BP 147 / 98; ph 09:39 Pulse 99; Resp 18; Pulse Ox 98% on R/A; ph 10:42 BP 139 / 89; Pulse 89; Resp 18; Pulse Ox 97% on R/A; ph 08:47 Body Mass Index 27.32 (83.91 kg, 175.26 cm) ph ED Course: 08:46 Patient arrived in ED. rn 08:47 Nury Cody, RN is Primary Nurse. ph 08:49 Dov Cote MD is Attending Physician. rn 08:50 Triage completed. ph 08:52 Arm band placed on Patient placed in an exam room, on a stretcher, on computing systems mechanic, ph on pulse oximetry. 08:52 Patient has correct armband on for positive identification. Placed in gown. Bed in low ph position. Call light in reach. Side rails up X 1. Client placed on continuous cardiac and pulse oximetry monitoring. NIBP monitoring applied. Door closed. Noise minimized. Warm blanket given. 08:55 Initial lab(s) drawn, by me, sent to lab. EKG done, by ED staff, reviewed by Dov Cote MD. Inserted saline lock: 20 gauge in right antecubital area, using aseptic technique. Blood collected. 09:02 CT Head Brain wo Cont In Process Unspecified. EDMS 09:02 Basic Metabolic Panel Sent. ph 09:02 CBC with Diff Sent. ph 09:02 NT PRO-BNP Sent. ph 09:02 PT-INR Sent. ph 09:02 Troponin HS Sent. ph 09:08 XRAY Chest (1 view) In Process Unspecified. EDMS 09:39 No provider procedures requiring assistance completed. ph 12:25 Provided Education on: POC. Verbalized understanding.. me1 12:25 IV discontinued, intact, bleeding controlled, No redness/swelling at site. Pressure me1 dressing applied. Administered Medications: No medications were administered Medication: 08:52 VIS not applicable for this client. ph Outcome: 11:51 Discharge ordered by MD. rn 12:24 Discharged to home ambulatory, me1 12:24 Condition: stable 12:24 Discharge instructions given to patient, Instructed on discharge instructions, follow up and referral plans. Demonstrated understanding of instructions, follow-up care, 12:25 Patient left the ED. me1 Signatures: Dispatcher [employer] Dov Mensah MD MD rn Hall, Patricia, RN RN Мария Soto RN RN me1
[2023-07-31 12:52] VITALS: TEMP 98
[2023-07-31 13:26] VITALS: BP 139/89; O2SAT 97
--- NOTE | 2023-08-02 13:28 | EKG ---
Test Date: 2023-07-31 Test Time: 08:52:40 [place] Compounder: PERLA MEASUREMENT RESULTS: Intervals: Rate: 100 AR: 142 QRSD: 78 QT: 324 QTc: 417 Vaiden: P: 25 AR: 142 QRS: 36 T: 33 INTERPRETIVE STATEMENTS: Normal sinus rhythm Normal ECG Compared to ECG 07/08/2023 05:45:03 No significant changes Electronically Signed On 08-02-23 13:22:45 [employer]OUTE SALES DRIVER by Mustapha Harmon
== END ==
LOC: ER 08:41
DX: I10 Essential (primary) hypertension (principal)
CPT/HCPCS: 36415; 70450; 71045; 80048; 83880; 84484; 85025; 85610; 93005; 99284

== ENCOUNTER → 2023-10-01 | Emergency (ER) | payer OTHER, SELFPAY ==
[~2023-10-01] MED LIST: POTASSIUM 25 MEQ EFFERV TAB ONE
--- OUTSIDE RECORDS SUMMARY | 2023-10-01 20:44 | XMS REPORT | Continuity of Care Document ---
Author Name Unknown Address [address] [facility] [place] [address] [facility] thconnect Address [address] [facility] [address] [place] [address] Care Team Providers Care Merchandising Intern Name Role Phone PCP, PATIENT DOES NOT HAVE A Primary Care Physic nirmal Unavailable Néstor, General Cardiology Attending Clinician Unav KRISHAN Hurtado Attending Clinician Unavailable Krishan Quesada MD Attending Clinician KRISHAN QUESADA Admitting Clinician Unavailable Payers Payer Name Policy Type Policy Number Effective Date Expirati on Date Source [facility] [id number] 2022 00:00:00 Allergies, Adverse Reactions, Alerts Allergy Name Allergy Type Status Severity Reaction(s) Onset Date Inactive Date Treating Clinician Comments Source NO KNOWN ALLERGIE S Drug Class Active [facility] Social History Social Habit Start Date Stop Date Quantity Comments Source Sexual orientation U [facility] Sex Assigned At 1990 00:00:00 1990 00:00:00 [facility] Smoking Status Start Date Stop Date Source Tobacco smoking consumption unknown [facility] Vital Signs Vital Name Observation Time Observation Value Comments S jef Systolic blood pressure 2023-05-13 19:00:00 136 mm[Hg] [facility] Diastolic blood pressure 2023-05-13 19:00:00 81 mm[Hg] [facility] Heart rate 2023-05-13 19:00:00 78 /min [facility] Respiratory rate 2023-05-13 19:00:00 20 /min [facility] Oxygen saturation in Arterial blood by Pulse oximetry 2023-05-13 19:00:00 97 /min [facility] Body temperature 2023-05-13 16:04:00 36.83 Salena [facility] Body height 2023-05-13 16:04:00 170.2 cm [facility] Body weight 2023-05-13 16:04:00 91.627 kg [facility] BMI 2023-05-13 16:04:00 31.64 kg/m2 [facility] Procedures Procedure Date / Time Performed Performing Clinician Source TROPONIN I 2023-05-13 18:17:00 Krishan Quesada [facility] XR CHEST 1 VW 2023-05-13 17:48:49 Krishan Quesada [facility] URINALYSIS 2023-05-13 16:48:00 Krishan Quesada [facility] URINE DRUG (IMMUNOASSAY) - COMPREHENSIVE DRUG SCREEN W/O REFLEX 2023-05-13 16:48:00 Krishan Quesada [facility] LIPASE 2023-05-13 16:15:00 Krishan Quesada [facility] TROPONIN I 2023-05-13 16:15:00 Krishan Quesada [facility] COMP. METABOLIC PANEL ([id number]) 2023-05-13 16:15:00 Krishan Quesada [facility] ETHANOL 2023-05-13 16:15:00 Krishan Quesada [facility] CBC WITH DIFF 2023-05-13 16:15:00 Krishan Quesada [facility] PROTHROMBIN TIME / INR 2023-05-13 16:15:00 Milind Quesada [facility] ACTIVATED PARTIAL THRMPLAS HONG 2023-05-13 16:15:00 Krishan Quesada [facility] N-TERMINAL PRO-BNP 2023-05-13 16:15:00 Krishan Quesada [facility] HB ECG ROUTINE & RHYTHM STRIP 2023-05-13 16:07:23 Krishan Quesada [facility] Encounters Start Date/Time End Date/Time Encounter Type Admission Type Attending Clinicians Care Facility Care Department Encounter ID Source 2023-05-15 00:00:00 2023-05-15 00:00:00 Letter (Out) Néstor, General Cardiology [facility] [id number] [facility] 2023-05-13 11:03:00 2023-05-13 14:31:00 Emergency X KRISHAN QUESADA [facility] ERT [id number] [facility] 2023-05-13 11:03:00 2023-05-13 14:31:00 Emergency Krishan Quesada [facility] [id number] [facility] Results Test Description Test Time Test Comments Results Result Co mments Source [facility] 18:22:05* Test Item Value Reference Range Interpretation Comme nts ALCOHOL (test code = 3847965870) 25 mg/dL SHWETA (test code = SHWETA) <10 [id number] Toxic>100 Depression of RELAY TELEGRAPHER>400 Fatalities Reported [facility] [id number] 17:34:47* Test Item Value Reference Range Interpretation Comme [facility] NT-proBNP (test code = 27173-8) <=125 Lab Interpretation (test cod e = 66507-0) Normal [facility] [id number] 17:26:01* Test Item Value Reference Range Interpretation Comme [facility] TROPONIN I (test code = 5072773199) <=0.034 SHWETA (test code = SHWETA) Reference [...] of biotin. Lab Interpretation (test code = 29617-7) Normal [facility]. METABOLIC PANEL ([id number])2023-05-13 17:17:22* Test Item Value Reference Range Interpretation Comme nts NA (test code = 4478162624) 137 mmol/L 135-145 K (test code = 7932256134) 3.6 mmol/L 3.5-5.0 CL (test code = 8717914134) 100 mmol/L 98-108 CO2 TOTAL (test code = 9763372566) 18 mmol/L 23-31 L AGAP (test code = 7833040864) 19 2-16 H BUN (test code = 4816813318) 13 mg/dL 7-23 GLUCOSE (test code = 4044895885) 99 mg/dL 70-110 CREATININE (test code = 2549774732) 0.81 mg/dL 0.60-1.25 TOTAL BILI (test code = 9046246179) 0.5 mg/dL 0.1-1.1 CALCIUM (test code = 2067300182) 8.9 mg/dL 8.6-10.6 T PROTEIN (test code = 7078585448) 8.5 g/dL 6.3-8.2 H ALBUMIN (test code = 1730185011) 4.8 g/dL 3.5-5.0 ALK PHOS (test code = 8786658601) 71 U/L 34-122 ALTv (test code = 1742-6) 32 U/L 5-50 AST(SGOT) (test code = 3282448939) 27 U/L 13-40 eGFR (test code = 5803818096) 110.4 mL/min/1.73m2 SHWETA (test code = SHWETA) [...] imaging tests). Lab Interpretation (test code = 66457-5) Abnormal [facility] 17:17:00* Test Item Value Reference Range Interpretation Comme [facility] LIPASE (test code = 0771858013) 56 U/L 0-220 Lab Interpretation (test cod e = 46723-7) Normal [facility] THRM[facility]AS [id number] 17:14:19* Test Item Value Reference Range Interpretation Comme [facility] APTT Patient (test code = 3173-2) 30 See_Comment [Automated message] The system which generated this result transmitted reference range: 23 - 38 Seconds. The reference range was not used to interpret this result as normal/abnormal. SHWETA (test code = SHWETA) The [facility] patient population mean normal value for aPTT is 30 seconds. Lab Interpretation (test code = 90022-0) Normal [facility] / [id number] 17:11:57* Test Item Value Reference Range Interpretation Comme [facility] PROTIME PATIENT (test code = 5964-2) 13.0 See_Comment [Automated [employer] ge] The system which generated this result transmitted reference range: 12.0 - 14.7 Seconds. The reference range was not used to interpret this result as normal/abnormal. INR (test code = 6301-6) 1.0 Normal INR <1.1; Warfarin Therapeutic range 2.0 to 3.0 or 2.5 to 3.5, depending upon the indications. Lab Interpretation (test code = 40653-9) Normal [facility] WITH [id number] 16:50:17* Test Item Value Reference Range Interpretation [...] g/dL 31.2-35.0 H RDW-SD (test code = 16102-8) 36.7 fL 38.5-51.6 L RDW-CV (test code = 788-0) 11.6 % 12.1-15.4 L PLT (test code = 777-3) 251 See_Comment [Automated messa ge] The system which generated this result transmitted reference range: 150 - 328 10*3/?L. The reference range was not used to interpret this result as normal/abnormal. MPV (test code = 35807-0) 10.2 fL 9.8-13.0 NRBC/100 WBC (test code = 4755977293) 0.0 See_Comment [Automated [employer] ssage] The system which generated this result transmitted reference range: 0.0 - 10.0 /100 WBCs. The reference range was not used to interpret this result as normal/abnormal. NRBC x10^3 (test code = 5713834528) See_Comment [Automated messa ge] The system which generated this result transmitted reference range: 10*3/?L. The reference range was not used to interpret this result as normal/abnormal. GRAN MAT (NEUT) % (test code = 770-8) 60.0 % IMM GRAN % (test code = 0846198812) 1.00 % LYMPH % (test code = 736-9) 28.1 % MONO % (test code = 5905-5) 9.3 % EOS % (test code = 713-8) 1.1 % BASO % (test code = 706-2) 0.5 % GRAN MAT x10^3(ANC) (test code = 7983357465) 5.67 10*3/uL 1.99-6.95 IMM GRAN x10^3 (test code = 8703490216) 0.09 10*3/uL 0.00-0.06 H LYMPH x10^3 (test code = 731-0) 2.66 10*3/uL 1.09-3.23 MONO x10^3 (test code = 742-7) 0.88 10*3/uL 0.36-1.02 EOS x10^3 (test code = 711-2) 0.10 10*3/uL 0.06-0.53 BASO x10^3 (test code = 704-7) 0.05 10*3/uL 0.01-0.09 Lab Interpretation (test code = 22892-9) Abnormal [facility]"
[2023-10-01 21:19] LABS: Urine Bacteria <20 /HPF (<20); Urine Bilirubin NEGATIVE (Negative); Urine Blood Negative (Negative); Urine Clarity Clear (Clear); Urine Color Light-Yellow (Yellow); Urine Glucose NEGATIVE (Negative); Urine Mucus Slight /HPF (None Seen); Urine Protein TRACE (Negative); Urine RBC <5 /HPF (None Seen); Urine Urobilinogen Normal (Normal); Urine pH 5.5 (5.0-7.0)
[2023-10-01 21:33] LABS: Barbiturates NEGATIVE (NEGATIVE); Benzodiazepines NEGATIVE (NEGATIVE); Cocaine NEGATIVE (NEGATIVE); METHAMPHETAM NEGATIVE (NEGATIVE); Methadone NEGATIVE (NEGATIVE); Opiates NEGATIVE (NEGATIVE); Phencyclidine NEGATIVE (NEGATIVE); THC Cannibis NEGATIVE (NEGATIVE)
[2023-10-01 21:37] LABS: Protime INR 1.04
[2023-10-01 21:43] LABS: Absolute Lymphocytes (CBC) 3.2 K/uL (0.7-4.9); Hematocrit 46.4 % (39.6-49.0); Lymphocytes % 30.5 % (15.3-44.8); MCV 87.8 fL (80-100); MPV 8.3 fL (7.6-11.3); Platelets 267 thou/uL (152-406); RBC Red Blood Cell Count 5.29 M/uL (4.33-5.43)
[2023-10-01 21:44] LABS: Albumin 3.9 g/dL (3.4-5.0); Bilirubin Direct 0.1 mg/dL (0-0.2); Bilirubin Indirect, Calculated 0.4 mg/dL (0.2-0.8); Bilirubin Total 0.5 mg/dL (0.2-1.0); Magnesium 1.8 mg/dL (1.6-2.4); Potassium 3.3 mEq/L (3.5-5.1); Protein, Total 7.6 g/dL (6.4-8.2); Troponin High Sensitivity 4.5 pg/mL (<58.9)
--- NOTE | 2023-10-01 22:04 | RAD REPORT ---
EXAM DESCRIPTION: Tayler Single View10/01/2023 9:47 pm CLINICAL HISTORY: Chest pain COMPARISON: 2022 FINDINGS: The lungs appear clear of acute infiltrate. The heart is normal size IMPRESSION: No acute abnormalities displayed
--- NOTE | 2023-10-01 22:13 | EDPHYS ---
Physician Documentation [facility] Name: Zeyad Alfonso Age: 33 yrs Sex: Male : 1990 Arrival Date: 10/01/2023 Time: 20:41 Bed DX3 Private MD: ED Physician Marito Vazquez HPI: 10/01 21:00 This 33 yrs old Male presents to ER via Ambulatory with complaints of High cp Blood Pressure. 21:00 The patient has elevated blood pressure and discovered this at home, with a home cp device. Onset: The symptoms/episode began/occurred tonight. Associated signs and symptoms: Pertinent positives: anxiety and funny feeling in chest but denies pain, Pertinent negatives: dizziness, headache, vomiting, weakness. Severity of symptoms: At its worst the blood pressure was systolic pressure in the 140s. Historical: - Allergies: 20:48 No Known Allergies; ap3 - Home Meds: 20:48 metoprolol tartrate 25 mg Oral tablet 1 tab daily [Active]; ap3 - PMHx: 20:48 Hyperlipidemia; Hypertensive disorder; ap3 - PSHx: 20:48 Chin (Broken); ap3 - Immunization history:: Client reports having NOT received the Covid vaccine. Flu vaccine status is unknown. - Social history:: Smoking status: Reported history of juuling and/or vaping. Patient uses alcohol, on the weekends. ROS: 21:05 Constitutional: Negative for body aches, chills, fever, poor PO intake, cp 21:05 Eyes: Negative for injury, pain, redness, and discharge, cp 21:05 Cardiovascular: Positive for chest pain, palpitations, Negative for edema, 21:05 Respiratory: Negative for cough, shortness of breath, wheezing, 21:05 Abdomen/GI: Negative for abdominal pain, nausea, vomiting, and diarrhea, 21:05 Back: Negative for pain at rest, pain with movement, 21:05 Neuro: Positive for tingling, of the right hand, Negative for altered mental status, dizziness, headache, weakness, 21:05 Psych: Positive for anxiety, 21:05 All other systems are negative, Exam: 20:57 ECG was reviewed by the Attending Physician. cp 21:08 Constitutional: The patient appears in no acute distress, alert, awake, comfortable, cp non-diaphoretic, non-toxic, well developed, well nourished, 21:08 Head/Face: Normocephalic, atraumatic. cp 21:08 Eyes: Periorbital structures: appear normal, Pupils: equal, round, and reactive to light and accomodation, Extraocular movements: intact throughout, Conjunctiva: normal, no exudate, no injection, Sclera: no appreciated abnormality, Lids and lashes: appear normal, bilaterally, 21:08 ENT: External ear(s): are unremarkable, Nose: is normal, Mouth: Lips: moist, Oral mucosa: pink and intact, moist, Posterior pharynx: is normal, airway is patent, no erythema, no exudate, 21:08 Neck: ROM/movement: is normal, is supple, without pain, no range of motions limitations, 21:08 Chest/axilla: Inspection: normal, Palpation: is normal, no crepitus, no tenderness, 21:08 Cardiovascular: Rate: normal, Rhythm: regular, Edema: is not appreciated, JVD: is not appreciated, 21:08 Respiratory: the patient does not display signs of respiratory distress, Respirations: normal, no use of accessory muscles, no retractions, labored breathing, is not present, Breath sounds: are clear throughout, no decreased breath sounds, no stridor, no wheezing, 21:08 Abdomen/GI: Inspection: abdomen appears normal, Palpation: abdomen is soft and non-tender, in all quadrants, 21:08 Back: pain, is absent, ROM is normal, 21:08 Neuro: Orientation: to person, place \T\ time. Mentation: is normal, Cerebellar function: is grossly normal, Motor: moves all fours, strength is normal, Sensation: no obvious gross deficits, Vital Signs: 20:46 BP 148 / 104; Pulse 69; Resp 17; Temp 97.6; Pulse Ox 100% ; Weight 92.99 kg; Height 5 ap3 ft. 7 in. ; Pain 0/10; 20:46 Body Mass Index 32.11 (92.99 kg, 170.18 cm) ap3 20:46 Pain Scale: Adult ap3 MDM: 20:52 Patient medically screened. cp 22:11 Data reviewed: vital signs, nurses notes, lab test result(s), EKG, radiologic studies, cp plain films. 22:11 Care significantly affected by the following chronic conditions: Hypertension. cp Counseling: I had a detailed discussion with the patient and/or guardian regarding the historical points, exam findings, and any diagnostic results supporting the discharge/admit diagnosis, the presence of at least one elevated blood pressure reading (>120/80) during this emergency department visit, lab results, radiology results, to return to the emergency department if symptoms worsen or persist or if there are any questions or concerns that arise at home. Special discussion: Based on the patient's history, exam, and Dx evaluation, there is no indication for emergent intervention or inpatient Tx. It is understood by the patient/guardian that if the Sx's persist or worsen they need to return immediately for re-evaluation. 10/01 20:58 Order name: Basic Metabolic Panel; Complete Time: 22:09 cp 10/01 22:09 Interpretation: Normal except: K 3.3; GLUC 121. cp 10/01 20:58 Order name: CBC with Diff; Complete Time: 22:09 cp 10/01 22:09 Interpretation: Normal except: MCHC 36.1. cp 10/01 20:58 Order name: LFT's; Complete Time: 22:09 cp 10/01 20:58 Order name: Magnesium; Complete Time: 22:09 cp 10/01 20:58 Order name: PT-INR; Complete Time: 22:09 cp 10/01 20:58 Order name: Troponin HS; Complete Time: 22:09 cp 10/01 20:58 Order name: Urinalysis W/Microscopic; Complete Time: 22:09 cp 10/01 20:58 Order name: UDS; Complete Time: 22:09 cp 10/01 20:58 Order name: XRAY Chest (1 view); Complete Time: 22:09 cp 10/01 22:09 Interpretation: Report review. cp 10/01 20:58 Order name: EKG; Complete Time: 20:58 cp 10/01 20:58 Order name: EKG - Nurse/Tech; Complete Time: 20:58 cp 10/01 20:58 Order name: IV Saline Lock; Complete Time: 21:05 cp 10/01 20:58 Order name: Labs collected and sent; Complete Time: 21:05 cp 10/01 20:58 Order name: O2 Per Protocol; Complete Time: 22:49 cp 10/01 20:58 Order name: O2 Sat Monitoring; Complete Time: 22:49 cp EC:57 Rate is 66 beats/min. Rhythm is regular. WA interval is normal. QRS interval is normal. cp QT interval is normal. T waves are Inverted in leads III, aVR. Interpreted by me. Reviewed by me. Administered Medications: 22:42 Drug: Potassium PO Effervescent Tablet 50 mEq PO once; dissolve in 4 ounces of water or jb4 juice Route: PO; 22:44 Follow up: Response: Medication administered at discharge. jb4 Disposition Summary: 10/01/23 22:12 Discharge Ordered Notes: Location: Home cp Problem: new cp Symptoms: have improved cp Condition: Stable cp Diagnosis - Anxiety disorder, unspecified cp - Hypertensive heart disease without heart failure cp Followup: cp - With: Private Physician - When: 2 - 3 days - Reason: Recheck today's complaints Discharge Instructions: - Discharge Summary Sheet cp - Hypertension, Adult cp - Aspirin and Your Heart cp - Generalized Anxiety Disorder, Adult cp - Form - Blood Pressure Record Sheet cp - How to Take Your Blood Pressure cp - Managing Anxiety, Adult cp Forms: - Medication Reconciliation Form cp - Thank You Letter cp - Antibiotic Education cp - Prescription Opioid Use cp - Patient Portal Instructions cp - Leadership Thank You Letter cp - Work release form jb4 Signatures: Dispatcher [employer] EDMS Santos Patterson PA PA cp Abebe Townsend RN RN jb4 Mel Bentley RN RN ap3 Corrections: (The following items were deleted from the chart) 22:49 20:58 Cardiac monitoring ordered. cp jb4
--- NOTE | 2023-10-01 22:13 | ER ---
Nurse's Notes [facility] Name: Zeyad Alfonso Age: 33 yrs Sex: Male : 1990 Arrival Date: 10/01/2023 Time: 20:41 Bed DX3 Private MD: Diagnosis: Anxiety disorder, unspecified;Hypertensive heart disease without heart failure Presentation: 10/01 20:46 Chief complaint: Patient states: his blood pressure was getting elevated at home. ap3 patient reports systolic pressure in the 140's at his house, and when he saw the pressure getting high, he states it made him feel anxious. Patient states that after he took his blood pressure, he also started having a "funny" feeling in his chest, but denies any pain. Coronavirus screen: At this time, the client does not indicate any symptoms associated with coronavirus-19. Ebola Screen: No symptoms or risks identified at this time. Initial Sepsis Screen: Does the patient meet any 2 criteria? No. Patient's initial sepsis screen is negative. Does the patient have a suspected source of infection? No. Patient's initial sepsis screen is negative. Risk Assessment: Do you want to hurt yourself or someone else? Patient reports no desire to harm self or others. Onset of symptoms was October 01, 2023. 20:46 Method Of Arrival: Ambulatory ap3 20:46 Acuity: JAZ 3 ap3 Triage Assessment: 20:49 General: Appears in no apparent distress. Behavior is calm, cooperative, appropriate ap3 for age. Pain: Denies pain. Neuro: Level of Consciousness is awake, alert, obeys commands, Oriented to person, place, time, situation, Appropriate for age. Cardiovascular: Reports "funny feeling" in chest Patient's skin is warm and dry. Respiratory: Airway is patent Respiratory effort is even, unlabored, Respiratory pattern is regular, symmetrical. Historical: - Allergies: 20:48 No Known Allergies; ap3 - Home Meds: 20:48 metoprolol tartrate 25 mg Oral tablet 1 tab daily [Active]; ap3 - PMHx: 20:48 Hyperlipidemia; Hypertensive disorder; ap3 - PSHx: 20:48 Chin (Broken); ap3 - Immunization history:: Client reports having NOT received the Covid vaccine. Flu vaccine status is unknown. - Social history:: Smoking status: Reported history of juuling and/or vaping. Patient uses alcohol, on the weekends. Screenin:50 [facility] ED Fall Risk Assessment (Adult) History of falling in the last 3 months, ap3 including since admission No falls in past 3 months (0 pts). Abuse screen: Denies threats or abuse. Nutritional screening: No deficits noted. Tuberculosis screening: No symptoms or risk factors identified. Assessment: 21:00 General: Appears in no apparent distress. comfortable, Behavior is calm, cooperative, jb4 appropriate for age. Pain: Denies pain. Neuro: Level of Consciousness is awake, alert, obeys commands, Oriented to person, place, time, situation. Cardiovascular: Patient's skin is warm and dry. Respiratory: Airway is patent Respiratory effort is even, unlabored, Respiratory pattern is regular, symmetrical. GI: No signs and/or symptoms were reported involving the gastrointestinal system. : No signs and/or symptoms were reported regarding the genitourinary system. EENT: No signs and/or symptoms were reported regarding the EENT system. Derm: Skin is intact, Skin is pink, warm \\T\\ dry. Musculoskeletal: Circulation, motion, and sensation intact. Range of motion: intact in all extremities. 22:50 Reassessment: Patient appears in no apparent distress at this time. Patient and/or jb4 family updated on plan of care and expected duration. Pain level reassessed. Patient is alert, oriented x 3, equal unlabored respirations, skin warm/dry/pink. Vital Signs: 20:46 BP 148 / 104; Pulse 69; Resp 17; Temp 97.6; Pulse Ox 100% ; Weight 92.99 kg; Height 5 ap3 ft. 7 in. ; Pain 0/10; 20:46 Body Mass Index 32.11 (92.99 kg, 170.18 cm) ap3 20:46 Pain Scale: Adult ap3 ED Course: 20:43 Patient arrived in ED. gm2 20:48 Triage completed. ap3 20:50 Arm band placed on right wrist. ap3 20:52 Santos Patterson PA is PHCP. cp 20:52 Marito Vazquez MD is Attending Physician. cp 21:05 Inserted saline lock: 20 gauge in left antecubital area, using aseptic technique. Blood ap3 collected. 21:10 Patient has correct armband on for positive identification. ap3 21:10 Initial lab(s) drawn, by me, sent to lab. Urine collected: clean catch specimen, clear. ap3 21:48 XRAY Chest (1 view) In Process Unspecified. EDMS 22:45 No provider procedures requiring assistance completed. IV discontinued, intact, jb4 bleeding controlled, No redness/swelling at site. Administered Medications: 22:42 Drug: Potassium PO Effervescent Tablet 50 mEq PO once; dissolve in 4 ounces of water or jb4 juice Route: PO; 22:44 Follow up: Response: Medication administered at discharge. jb4 Medication: 21:11 VIS not applicable for this client. ap3 Outcome: 22:12 Discharge ordered by MD. cp 22:45 Discharged to home ambulatory, jb4 22:45 Condition: stable 22:45 Discharge instructions given to patient, Instructed on discharge instructions, follow up and referral plans. Demonstrated understanding of instructions, follow-up care, 22:50 Patient left the ED. jb4 Signatures: Dispatcher [employer] EDMS Sanots Patterson PA PA cp Bryson, James RN RN jb4 Mel Bentley RN RN ap3 Vidya Pizarro 2
[2023-10-01 23:32] VITALS: BP 148/104; TEMP 97.6; O2SAT 100
--- NOTE | 2023-10-02 15:48 | EKG ---
Test Date: 2023-10-01 Test Time: 20:45:08 [employer]ch: ALP MEASUREMENT RESULTS: Intervals: Rate: 66 MA: 152 QRSD: 84 QT: 376 QTc: 394 [place]: P: 33 MA: 152 QRS: 35 T: 13 INTERPRETIVE STATEMENTS: Normal sinus rhythm Nonspecific ST abnormality Abnormal ECG Compared to ECG 07/31/2023 08:52:40 ST (T wave) deviation now present Electronically Signed On 10-02-23 15:46:06 GLUING MACHINE OFFBEARER by Mustapha Harmon
== END ==
LOC: ER 20:41
DX: F41.9 Anxiety disorder, unspecified (principal); I11.9 Hypertensive heart disease without heart failure
CPT/HCPCS: 36415; 71045; 80048; 80076; 80307; 81001; 83735; 84484; 85025; 85610; 93005; 99284

== ENCOUNTER 2023-11-04 09:01 | Emergency (ER) | payer OTHER ==
--- OUTSIDE RECORDS SUMMARY | 2023-11-04 09:04 | XMS REPORT | Continuity of Care Document ---
Author Name Unknown Address [address] [facility] [place] [address] [facility] thconnect Address [address] [facility] [address] [place] [address] Care Team Providers Care Day Care Assistant Name Role Phone PCP, PATIENT DOES NOT HAVE A Primary Care Physic nirmal Unavailable Néstor, General Cardiology Attending Clinician Unav KRISHAN Hurtado Attending Clinician Unavailable Krishan Quesada MD Attending Clinician KRISHAN QUESADA Admitting Clinician Unavailable Payers Payer Name Policy Type Policy Number Effective Date Expirati on Date Source [facility] [id number] 2022 00:00:00 Allergies, Adverse Reactions, Alerts Allergy Name Allergy Type Status Severity Reaction(s) Onset Date Inactive Date Treating Clinician Comments Source NO KNOWN ALLERGIE S Drug Class Active [facility] Social History Social Habit Start Date Stop Date Quantity Comments Source Sexual orientation U [facility] Sex Assigned At 1990 00:00:00 1990 00:00:00 [facility] Smoking Status Start Date Stop Date Source Tobacco smoking consumption unknown [facility] Vital Signs Vital Name Observation Time Observation Value Comments S jef Systolic blood pressure 2023-05-13 19:00:00 136 mm[Hg] [facility] Diastolic blood pressure 2023-05-13 19:00:00 81 mm[Hg] [facility] Heart rate 2023-05-13 19:00:00 78 /min [facility] Respiratory rate 2023-05-13 19:00:00 20 /min [facility] Oxygen saturation in Arterial blood by Pulse oximetry 2023-05-13 19:00:00 97 /min [facility] Body temperature 2023-05-13 16:04:[address] [facility] Body height 2023-05-13 16:04:00 170.2 cm [facility] Body weight 2023-05-13 16:04:00 91.627 kg [facility] BMI 2023-05-13 16:04:00 31.64 kg/m2 [facility] Procedures Procedure Date / Time Performed Performing Clinician Source TROPONIN I 2023-05-13 18:17:00 Krishan Quesada [facility] XR CHEST 1 VW 2023-05-13 17:48:49 Krishan Quesada [facility] URINALYSIS 2023-05-13 16:48:00 Krishan Quesada [facility] URINE DRUG (IMMUNOASSAY) - COMPREHENSIVE DRUG SCREEN W/O REFLEX 2023-05-13 16:48:[address] [facility] LIPASE 2023-05-13 16:15:00 Krishan Quesada [facility] TROPONIN I 2023-05-13 16:15:00 Krishan Quesada [facility] COMP. METABOLIC PANEL ([id number]) 2023-05-13 16:15:[address] [facility] ETHANOL 2023-05-13 16:15:00 Krishan Quesada [facility] CBC WITH DIFF 2023-05-13 16:15:00 Krishan Quesada [facility] PROTHROMBIN TIME / INR 2023-05-13 16:15:[address] [facility] ACTIVATED PARTIAL THRMPLAS HONG 2023-05-13 16:15:[address] [facility] N-TERMINAL PRO-BNP 2023-05-13 16:15:[address] [facility] HB ECG ROUTINE & RHYTHM STRIP 2023-05-13 16:07:[address] [facility] Encounters Start Date/Time End Date/Time Encounter Type Admission Type Attending Clinicians Care Facility Care Department Encounter ID Source 2023-05-15 00:00:00 2023-05-15 00:00:00 Letter (Out) Néstor, General Cardiology [facility] [id number] [facility] 2023-05-13 11:03:00 2023-05-13 14:31:00 Emergency X KRISHAN QUESADA [facility] ERT [id number] [facility] 2023-05-13 11:03:00 2023-05-13 14:31:00 Emergency Krishan Quesada [facility] [id number] [facility] Results Test Description Test Time Test Comments Results Result Co mments Source [facility] 18:22:05* Test Item Value Reference Range Interpretation Comme nts ALCOHOL (test code = 0305837055) 25 mg/dL SHWETA (test code = SHWETA) <10 [id number] Toxic>100 Depression of CCU NURSE>[address] [facility] [id number] 17:34:47* Test Item Value Reference Range Interpretation Comme [facility] NT-proBNP (test code = 36189-8) <=125 Lab Interpretation (test cod e = 68241-6) Normal [facility] [id number] 17:26:01* Test Item Value Reference Range Interpretation Comme [facility] TROPONIN I (test code = 8761506140) <=0.034 SHWETA (test code = SHWETA) Reference [...] of biotin. Lab Interpretation (test code = 20202-7) Normal [facility]. METABOLIC PANEL (27114)2023-05-13 17:17:22* Test Item Value Reference Range Interpretation Comme nts NA (test code = 0805100661) 137 mmol/L 135-145 K (test code = 4480655390) 3.6 mmol/L 3.5-5.0 CL (test code = 4873485793) 100 mmol/L 98-108 CO2 TOTAL (test code = 9803811071) 18 mmol/L 23-31 L AGAP (test code = 7304370639) 19 2-16 H BUN (test code = 9947795178) 13 mg/dL 7-23 GLUCOSE (test code = 3367133705) 99 mg/dL 70-110 CREATININE (test code = 9698590000) 0.81 mg/dL 0.60-1.25 TOTAL BILI (test code = 6832661516) 0.5 mg/dL 0.1-1.1 CALCIUM (test code = 9562428054) 8.9 mg/dL 8.6-10.6 T PROTEIN (test code = 7450584615) 8.5 g/dL 6.3-8.2 H ALBUMIN (test code = 8106474411) 4.8 g/dL 3.5-5.0 ALK PHOS (test code = 6639318379) 71 U/L 34-122 ALTv (test code = 1742-6) 32 U/L 5-50 AST(SGOT) (test code = 3916636013) 27 U/L 13-40 eGFR (test code = 4570954466) 110.4 mL/min/1.73m2 SHWETA (test code = SHWETA) [...] imaging tests). Lab Interpretation (test code = 09921-7) Abnormal [facility] 17:17:00* Test Item Value Reference Range Interpretation Comme [facility] LIPASE (test code = 3602299322) 56 U/L 0-220 Lab Interpretation (test cod e = 78347-9) Normal [facility] TH[facility] [id number] 17:14:19* Test Item Value Reference Range Interpretation Comme [facility] APTT Patient (test code = 3173-2) 30 See_Comment [Automated message] The system which generated this result transmitted reference range: 23 - 38 Seconds. The reference range was not used to interpret this result as normal/abnormal. SHWETA (test code = SHWETA) The [facility] patient population mean normal value for aPTT is 30 seconds. Lab Interpretation (test code = 28820-7) Normal [facility] / [id number] 17:11:57* Test Item Value Reference Range Interpretation Comme [facility] PROTIME PATIENT (test code = 5964-2) 13.0 See_Comment [Automated BaseKit ge] The system which generated this result transmitted reference range: 12.0 - 14.7 Seconds. The reference range was not used to interpret this result as normal/abnormal. INR (test code = 6301-6) 1.0 Normal INR <1.1; Warfarin Therapeutic range 2.0 to 3.0 or 2.5 to 3.5, depending upon the indications. Lab Interpretation (test code = 07245-2) Normal [facility] WITH [id number] 16:50:17* Test Item Value Reference Range Interpretation [...] g/dL 31.2-35.0 H RDW-SD (test code = 50108-1) 36.7 fL 38.5-51.6 L RDW-CV (test code = 788-0) 11.6 % 12.1-15.4 L PLT (test code = 777-3) 251 See_Comment [Automated messa ge] The system which generated this result transmitted reference range: 150 - 328 10*3/?L. The reference range was not used to interpret this result as normal/abnormal. MPV (test code = 26243-1) 10.2 fL 9.8-13.0 NRBC/100 WBC (test code = 6637899000) 0.0 See_Comment [Automated WebSafety ssage] The system which generated this result transmitted reference range: 0.0 - 10.0 /100 WBCs. The reference range was not used to interpret this result as normal/abnormal. NRBC x10^3 (test code = 4257890872) See_Comment [Automated messa ge] The system which generated this result transmitted reference range: 10*3/?L. The reference range was not used to interpret this result as normal/abnormal. GRAN MAT (NEUT) % (test code = 770-8) 60.0 % IMM GRAN % (test code = 1827480070) 1.00 % LYMPH % (test code = 736-9) 28.1 % MONO % (test code = 5905-5) 9.3 % EOS % (test code = 713-8) 1.1 % BASO % (test code = 706-2) 0.5 % GRAN MAT x10^3(ANC) (test code = 8808304077) 5.67 10*3/uL 1.99-6.95 IMM GRAN x10^3 (test code = 2986642035) 0.09 10*3/uL 0.00-0.06 H LYMPH x10^3 (test code = 731-0) 2.66 10*3/uL 1.09-3.23 MONO x10^3 (test code = 742-7) 0.88 10*3/uL 0.36-1.02 EOS x10^3 (test code = 711-2) 0.10 10*3/uL 0.06-0.53 BASO x10^3 (test code = 704-7) 0.05 10*3/uL 0.01-0.09 Lab Interpretation (test code = 82686-5) Abnormal [facility]"
[2023-11-04] MEDS ORDERED: cloNIDine HCL 0.1 MG TAB ONE (09:17)
--- NOTE | 2023-11-04 09:45 | EDPHYS ---
Physician Documentation [facility] Name: Zeyad Alfonso Age: 33 yrs Sex: Male : 1990 Arrival Date: 11/04/2023 Time: 09:01 Bed DX4 Private MD: ED Physician Sarina Young HPI: 11/03 09:14 This 33 yrs old Male presents to ER via Ambulatory with complaints of High sb4 Blood Pressure. 09:14 The patient has elevated blood pressure and discovered this at home, with a home sb4 device. Onset: The symptoms/episode began/occurred this morning. Associated signs and symptoms: The patient has no apparent associated signs or symptoms. Severity of symptoms: At its worst the blood pressure was in the emergency department the blood pressure is unchanged. The patient has experienced similar episodes in the past, a few times. The patient has not recently seen a physician. Patient presents with elevated blood pressure readings at home. He states that it was elevated when he woke up this morning and took his metoprolol as prescribed. States his blood pressure has not improved. It is 156/112 here. He denies any chest pain, shortness of breath, headache, nausea, vomiting, blurry vision, dizziness. Historical: - Allergies: 09:08 No Known Allergies; ll1 - Home Meds: 09:08 metoprolol tartrate 25 mg Oral tablet 1 tab daily [Active]; ll1 - PMHx: 09:08 Hyperlipidemia; Hypertensive disorder; ll1 - PSHx: 09:08 Chin (Broken); ll1 - Immunization history:: Adult Immunizations up to date. - Social history:: Smoking status: Reported history of juuling and/or vaping. ROS: 09:14 Constitutional: Negative for fever, chills, and weight loss, sb4 09:14 All other systems are negative, Exam: 09:14 Constitutional: This is a well developed, well nourished patient who is awake, alert, sb4 and in no acute distress. Head/Face: Normocephalic, atraumatic. Eyes: Extra-ocular motions intact. Periorbital areas with no swelling, redness, or edema. ENT: Mucous membranes moist. Cardiovascular: Regular rate and rhythm with a normal S1 and S2. Respiratory: Lungs have equal breath sounds bilaterally, clear to auscultation and percussion. No rales, rhonchi or wheezes noted. No increased work of breathing, no retractions or nasal flaring. Abdomen/GI: Soft, non-tender, no distension. Skin: Warm, dry with normal turgor. Normal color with no rashes, no lesions, and no evidence of cellulitis. MS/ Extremity: Pulses equal, no cyanosis. Neurovascular intact. Full, normal range of motion. Neuro: Awake and alert, GCS 15, oriented to person, place, time, and situation. Motor strength 5/5 in all extremities. Sensory grossly intact. Vital Signs: 09:11 BP 156 / 112; Pulse 80; Resp 17; Temp 97.9; Pulse Ox 99% ; Weight 92.99 kg; Height 5 ll1 ft. 7 in. ; Pain 0/10; 09:44 BP 144 / 87; Pulse 72; Resp 17; ll1 10:16 BP 119 / 69; Pulse 75; Resp 16; Pulse Ox 99% on R/A; Pain 0/10; ll1 09:11 Body Mass Index 32.11 (92.99 kg, 170.18 cm) ll1 09:11 Pain Scale: Adult ll1 10:16 Pain Scale: Adult ll1 MDM: 09:09 Patient medically screened. sb4 09:52 Data reviewed: vital signs, nurses notes, and as a result, I will discharge patient. sb4 Counseling: I had a detailed discussion with the patient and/or guardian regarding the historical points, exam findings, and any diagnostic results supporting the discharge/admit diagnosis, the need for outpatient follow up, for definitive care. 11/03 09:12 Order name: EKG; Complete Time: 09:13 sb4 EC:35 Rate is 73 beats/min. Rhythm is regular, Normal Sinus Rhythm. CA interval is normal at sb4 160 msec. QRS interval is normal at 88 msec. QT interval is normal at 366 msec. No Q waves. T waves are Normal. No ST changes noted. Clinical impression: Normal ECG and No evidence of ischemia. Interpreted by me. Reviewed by me. Administered Medications: 09:20 Drug: cloNIDine PO 0.1 mg PO once Route: PO; ll1 10:18 Follow up: Response: No adverse reaction ll1 Disposition Summary: 11/04/23 09:44 Discharge Ordered Notes: Location: Home sb4 Problem: new sb4 Symptoms: have improved sb4 Condition: Stable sb4 Diagnosis - Essential (primary) hypertension sb4 Followup: sb4 - With: Emergency Department - When: As needed - Reason: Trouble breathing, Worsening of condition Discharge Instructions: - Discharge Summary Sheet sb4 - Managing Your Hypertension sb4 Forms: - Thank You Letter sb4 - Patient Portal Instructions sb4 - Leadership Thank You Letter sb4 Signatures: Ashley Hodges RN RN ll1 Kia Laws PA-C PA-C sb4
--- NOTE | 2023-11-04 09:45 | ER ---
Nurse's Notes [facility] Name: Zeyad Alfonso Age: 33 yrs Sex: Male : 1990 Arrival Date: 11/04/2023 Time: 09:01 Bed DX4 Private MD: Diagnosis: Essential (primary) hypertension Presentation: 11/03 09:11 Chief complaint: Patient states: High BP today, started at 135/??. Took metoprolol at 6 ll1 AM. Feels weird and SOB. No pain. Coronavirus screen: Client denies travel out of the [place] in the last 14 days. At this time, the client does not indicate any symptoms associated with coronavirus-19. Ebola Screen: Patient denies travel to an Ebola-affected area in the 21 days before illness onset. Initial Sepsis Screen: Does the patient meet any 2 criteria? No. Patient's initial sepsis screen is negative. Does the patient have a suspected source of infection? No. Patient's initial sepsis screen is negative. Risk Assessment: Do you want to hurt yourself or someone else? Patient reports no desire to harm self or others. Onset of symptoms was November 04, 2023. 09:11 Method Of Arrival: Ambulatory ll1 09:11 Acuity: JAZ 3 ll1 Triage Assessment: 09:13 General: Appears uncomfortable, Behavior is calm, cooperative, appropriate for age. ll1 General: Reports fatigue for high BP. Pain: Denies pain. Cardiovascular: Reports shortness of breath, high BP. Historical: - Allergies: 09:08 No Known Allergies; ll1 - Home Meds: 09:08 metoprolol tartrate 25 mg Oral tablet 1 tab daily [Active]; ll1 - PMHx: 09:08 Hyperlipidemia; Hypertensive disorder; ll1 - PSHx: 09:08 Chin (Broken); ll1 - Immunization history:: Adult Immunizations up to date. - Social history:: Smoking status: Reported history of juuling and/or vaping. Screenin:16 [facility] ED Fall Risk Assessment (Adult) History of falling in the last 3 months, ll1 including since admission No falls in past 3 months (0 pts) Confusion or Disorientation No (0 pts) Intoxicated or Sedated No (0 pts) Impaired Gait No (0 pts) Mobility Assist Device Used No (0 pt) Altered Elimination No (0 pt) Score/Fall Risk Level 0 - 2 = Low Risk Oriented to surroundings, Hourly rounding (assess needs \T\ fall precautionary measures) done. Abuse screen: Denies threats or abuse. Nutritional screening: No deficits noted. Tuberculosis screening: No symptoms or risk factors identified. Assessment: 09:34 Reassessment: No changes from previously documented assessment. Patient and/or family ll1 updated on plan of care and expected duration. Pain level reassessed. Patient is alert, oriented x 3, equal unlabored respirations, skin warm/dry/pink. 10:16 Reassessment: No changes from previously documented assessment. Patient and/or family ll1 updated on plan of care and expected duration. Pain level reassessed. Patient is alert, oriented x 3, equal unlabored respirations, skin warm/dry/pink. Vital Signs: 09:11 BP 156 / 112; Pulse 80; Resp 17; Temp 97.9; Pulse Ox 99% ; Weight 92.99 kg; Height 5 ll1 ft. 7 in. ; Pain 0/10; 09:44 BP 144 / 87; Pulse 72; Resp 17; ll1 10:16 BP 119 / 69; Pulse 75; Resp 16; Pulse Ox 99% on R/A; Pain 0/10; ll1 09:11 Body Mass Index 32.11 (92.99 kg, 170.18 cm) ll1 09:11 Pain Scale: Adult ll1 10:16 Pain Scale: Adult ll1 ED Course: 09:02 Patient arrived in ED. ra3 09:05 [facility]ia Laws [facility] sb4 09:05 Sarina Young MD is Attending Physician. sb4 09:13 Triage completed. ll1 09:13 Arm band placed on. ll1 09:34 EKG done, by ED staff, reviewed by Sarina Young MD. ll1 10:17 Patient has correct armband on for positive identification. Bed in low position. ll1 Provided Education on: n/a. 10:17 No provider procedures requiring assistance completed. Patient did not have IV access ll1 during this emergency room visit. Administered Medications: 09:20 Drug: cloNIDine PO 0.1 mg PO once Route: PO; ll1 10:18 Follow up: Response: No adverse reaction ll1 Medication: 10:18 VIS not applicable for this client. ll1 Outcome: :44 Discharge ordered by . gisell 10:17 Discharged to home ambulatory, ll1 10:17 Condition: stable 10:17 Discharge instructions given to patient, Instructed on discharge instructions, follow up and referral plans. Demonstrated understanding of instructions, follow-up care, 10:18 Patient left the ED. ll1 Signatures: Ashley Hodges RN RN ll1 Kia Laws, PAAngelC PA-C [email or web address] Beulah Arroyo ra3
[2023-11-04 11:10] VITALS: TEMP 97.9; O2SAT 99
[2023-11-04 11:11] VITALS: BP 119/69
--- NOTE | 2023-11-05 13:42 | EKG ---
Test Date: 2023-11-04 Test Time: 08:32:43 Hydrodynamics Professor: LML MEASUREMENT RESULTS: Intervals: Rate: 73 AL: 160 QRSD: 88 QT: 366 QTc: 403 [place]: P: 32 AL: 160 QRS: 60 T: 37 INTERPRETIVE STATEMENTS: Normal sinus rhythm Normal ECG Compared to ECG 10/01/2023 20:45:08 ST (T wave) deviation no longer present Electronically Signed On 11-05-23 13:37:06 CDT by Mustapha Harmon
== END 2023-11-04 10:18 | disposition home or self-care (01) ==
LOC: ER 09:01
DX: I10 Essential (primary) hypertension (principal)
CPT/HCPCS: 93005; 99283

== ENCOUNTER 2023-11-27 08:14 | Emergency (ER) | payer OTHER ==
--- OUTSIDE RECORDS SUMMARY | 2023-11-27 08:16 | XMS REPORT | Continuity of Care Document ---
Author Name Unknown Address [address] [facility] [place] [address] [facility] thconnect Address [address] [facility] [address] [place] [address] Care Team Providers Care Nursery Nurse Name Role Phone PCP, PATIENT DOES NOT HAVE A Primary Care Physic nirmal Unavailable Néstor, General Cardiology Attending Clinician Unav KRISHAN Hurtado Attending Clinician Unavailable Krishan Quesada MD Attending Clinician [phone] KRISHAN QUESADA Admitting Clinician Unavailable Payers Payer Name Policy Type Policy Number Effective Date Expirati on Date Source [facility] [id number] 2022 00:00:00 Allergies, Adverse Reactions, Alerts Allergy Name Allergy Type Status Severity Reaction(s) Onset Date Inactive Date Treating Clinician Comments Source NO KNOWN ALLERGIE S Drug Class Active [facility] Social History Social Habit Start Date Stop Date Quantity Comments Source Sexual orientation U [facility] Sex Assigned At 1990 00:00:00 1990 00:00:00 [facility] Smoking Status Start Date Stop Date Source Tobacco smoking consumption unknown [facility] Vital Signs Vital Name Observation Time Observation Value Comments S jef Systolic blood pressure 2023-05-13 19:00:00 136 mm[Hg] [facility] Diastolic blood pressure 2023-05-13 19:00:00 81 mm[Hg] [facility] Heart rate 2023-05-13 19:00:00 78 /min [facility] Respiratory rate 2023-05-13 19:00:00 20 /min [facility] Oxygen saturation in Arterial blood by Pulse oximetry 2023-05-13 19:00:00 97 /min [facility] Body temperature 2023-05-13 16:04:00 36.83 [facility] Body height 2023-05-13 16:04:00 170.2 cm [facility] Body weight 2023-05-13 16:04:00 91.627 kg [facility] BMI 2023-05-13 16:04:00 31.64 kg/m2 [facility] Procedures Procedure Date / Time Performed Performing Clinician Source TROPONIN I 2023-05-13 18:17:00 Krishan Quesada [facility] XR CHEST 1 VW 2023-05-13 17:48:49 Krishan Quesada [facility] URINALYSIS 2023-05-13 16:48:00 Krishan Quesada [facility] URINE DRUG (IMMUNOASSAY) - COMPREHENSIVE DRUG SCREEN W/O REFLEX 2023-05-13 16:48:00 Krishan Quesada [facility] LIPASE 2023-05-13 16:15:00 Krishan Quesada [facility] TROPONIN I 2023-05-13 16:15:00 Krishan Quesada [facility] COMP. METABOLIC PANEL ([id number]) 2023-05-13 16:15:00 Krishan Quesada [facility] ETHANOL 2023-05-13 16:15:00 Krishan Quesada [facility] CBC WITH DIFF 2023-05-13 16:15:00 Krishan Quesada [facility] PROTHROMBIN TIME / INR 2023-05-13 16:15:00 Milind Quesada [facility] ACTIVATED PARTIAL THRMPLAS HONG 2023-05-13 16:15:00 Krishan Quesada [facility] N-TERMINAL PRO-BNP 2023-05-13 16:15:00 Krishan Quesada [facility] HB ECG ROUTINE & RHYTHM STRIP 2023-05-13 16:07:23 Krishan Quesada [facility] Encounters Start Date/Time End Date/Time Encounter Type Admission Type Attending Clinicians Care Facility Care Department Encounter ID Source 2023-05-15 00:00:00 2023-05-15 00:00:00 Letter (Out) Néstor, General Cardiology [facility] [id number] [facility] 2023-05-13 11:03:00 2023-05-13 14:31:00 Emergency X [facility] [id number] [facility] 2023-05-13 11:03:00 2023-05-13 14:31:00 Emergency Krishan Quesada [facility] [id number] [facility] Results Test Description Test Time Test Comments Results Result Co mments Source [facility] 18:22:05* Test Item Value Reference Range Interpretation Comme nts ALCOHOL (test code = 4232558055) 25 mg/dL SHWETA (test code = SHWETA) <10 [id number] Toxic>100 Depression of INSPECTOR REPAIRER>400 Fatalities Reported [facility] [id number] 17:34:47* Test Item Value Reference Range Interpretation Comme [facility] NT-proBNP (test code = 81880-6) <=125 Lab Interpretation (test cod e = 27473-7) Normal [facility] [id number] 17:26:01* Test Item Value Reference Range Interpretation Comme [facility] TROPONIN I (test code = 9532889347) <=0.034 SHWETA (test code = SHWETA) Reference [...] of biotin. Lab Interpretation (test code = 15683-8) Normal [facility]. METABOLIC PANEL (23736)2023-05-13 17:17:22* Test Item Value Reference Range Interpretation Comme nts NA (test code = 1192284340) 137 mmol/L 135-145 K (test code = 3729091952) 3.6 mmol/L 3.5-5.0 CL (test code = 2275086155) 100 mmol/L 98-108 CO2 TOTAL (test code = 7032113438) 18 mmol/L 23-31 L AGAP (test code = 6875957098) 19 2-16 H BUN (test code = 9153636739) 13 mg/dL 7-23 GLUCOSE (test code = 9910335597) 99 mg/dL 70-110 CREATININE (test code = 4308833839) 0.81 mg/dL 0.60-1.25 TOTAL BILI (test code = 9964082679) 0.5 mg/dL 0.1-1.1 CALCIUM (test code = 9365760534) 8.9 mg/dL 8.6-10.6 T PROTEIN (test code = 0846392871) 8.5 g/dL 6.3-8.2 H ALBUMIN (test code = 1590400631) 4.8 g/dL 3.5-5.0 ALK PHOS (test code = 7397286135) 71 U/L 34-122 ALTv (test code = 1742-6) 32 U/L 5-50 AST(SGOT) (test code = 7940325496) 27 U/L 13-40 eGFR (test code = 5625515978) 110.4 mL/min/1.73m2 SHWETA (test code = SHWETA) [...] imaging tests). Lab Interpretation (test code = 40102-3) Abnormal [facility] 17:17:00* Test Item Value Reference Range Interpretation Comme [facility] LIPASE (test code = 1761318232) 56 U/L 0-220 Lab Interpretation (test cod e = 28711-5) Normal [facility] [id number] 17:14:19* Test Item Value Reference Range Interpretation Comme [facility] APTT Patient (test code = 3173-2) 30 See_Comment [Automated message] The system which generated this result transmitted reference range: 23 - 38 Seconds. The reference range was not used to interpret this result as normal/abnormal. SHWETA (test code = SHWETA) The [facility] patient population mean normal value for aPTT is 30 seconds. Lab Interpretation (test code = 73294-8) Normal [facility] / [id number] 17:11:57* Test Item Value Reference Range Interpretation Comme [facility] PROTIME PATIENT (test code = 5964-2) 13.0 See_Comment [Automated Digital Lumens ge] The system which generated this result transmitted reference range: 12.0 - 14.7 Seconds. The reference range was not used to interpret this result as normal/abnormal. INR (test code = 6301-6) 1.0 Normal INR <1.1; Warfarin Therapeutic range 2.0 to 3.0 or 2.5 to 3.5, depending upon the indications. Lab Interpretation (test code = 21228-1) Normal [facility] WITH [id number] 16:50:17* Test Item Value Reference Range Interpretation [...] g/dL 31.2-35.0 H RDW-SD (test code = 01599-5) 36.7 fL 38.5-51.6 L RDW-CV (test code = 788-0) 11.6 % 12.1-15.4 L PLT (test code = 777-3) 251 See_Comment [Automated messa ge] The system which generated this result transmitted reference range: 150 - 328 10*3/?L. The reference range was not used to interpret this result as normal/abnormal. MPV (test code = 68431-1) 10.2 fL 9.8-13.0 NRBC/100 WBC (test code = 9540705946) 0.0 See_Comment [Automated Corefino ssage] The system which generated this result transmitted reference range: 0.0 - 10.0 /100 WBCs. The reference range was not used to interpret this result as normal/abnormal. NRBC x10^3 (test code = 1603036219) See_Comment [Automated messa ge] The system which generated this result transmitted reference range: 10*3/?L. The reference range was not used to interpret this result as normal/abnormal. GRAN MAT (NEUT) % (test code = 770-8) 60.0 % IMM GRAN % (test code = 2569546843) 1.00 % LYMPH % (test code = 736-9) 28.1 % MONO % (test code = 5905-5) 9.3 % EOS % (test code = 713-8) 1.1 % BASO % (test code = 706-2) 0.5 % GRAN MAT x10^3(ANC) (test code = 9332569149) 5.67 10*3/uL 1.99-6.95 IMM GRAN x10^3 (test code = 9170641809) 0.09 10*3/uL 0.00-0.06 H LYMPH x10^3 (test code = 731-0) 2.66 10*3/uL 1.09-3.23 MONO x10^3 (test code = 742-7) 0.88 10*3/uL 0.36-1.02 EOS x10^3 (test code = 711-2) 0.10 10*3/uL 0.06-0.53 BASO x10^3 (test code = 704-7) 0.05 10*3/uL 0.01-0.09 Lab Interpretation (test code = 09444-8) Abnormal [facility]"
[2023-11-27 08:43] LABS: Absolute Basophils 0.1 K/uL (0-0.5); Absolute Eosinophils 0.1 K/uL (0-0.5); Absolute Lymphocytes (CBC) 2.1 K/uL (0.7-4.9); Absolute Monocytes 0.7 K/uL (0.1-1.3); Absolute Neutrophil 4.9 K/uL (1.8-8.0); Basophils % 0.8 % (0-1.3); Hematocrit 47.7 % (39.6-49.0); Hemoglobin 16.7 g/dL (13.6-17.9); Lymphocytes % 26.7 % (15.3-44.8); MCH 30.9 pg (27.0-35.0); MCHC 34.9 g/dL (32.0-36.0); MCV 88.4 fL (80-100); MPV 8.1 fL (7.6-11.3); Monocytes % 8.6 % (3.3-12.3); Neutrophils % 62.9 % (41.7-73.7); Platelets 250 thou/uL (152-406); RBC Red Blood Cell Count 5.39 M/uL (4.33-5.43); Red Cell Distribution Width 13.2 % (12.1-15.2)
[2023-11-27 08:57] LABS: Anion Gap 10.2 mEq/L (5.0-15.0); Potassium 3.2 mEq/L (3.5-5.1); Troponin High Sensitivity 10.5 pg/mL (<58.9)
--- NOTE | 2023-11-27 10:45 | RAD REPORT ---
EXAM DESCRIPTION: RADChest Single View11/27/2023 9:15 am CLINICAL HISTORY: left shoulder pain COMPARISON: Chest Single View dated 10/01/2023; Chest Single View dated 07/31/2023; Chest Single View dated 07/08/2023; Chest Single View dated 04/11/2022 TECHNIQUE: Portable AP view of the chest. FINDINGS: The lungs are clear. No pneumothorax or effusion. The cardiomediastinal contours are unre markable. IMPRESSION: No acute cardiopulmonary process.
[2023-11-27] MEDS ORDERED: POTASSIUM CL SA 10 MEQ TAB PO ONE (11:16)
--- NOTE | 2023-11-27 11:30 | ER ---
Nurse's Notes [facility] Name: Zeyad Alfonso Age: 33 yrs Sex: Male : 1990 Arrival Date: 11/27/2023 Time: 08:14 Bed 19 Private MD: Diagnosis: Essential (primary) hypertension;Hypokalemia Presentation: 11/26 08:18 Chief complaint: EMS states: patient called for high blood pressure, took his bp meds ko1 at 0530 this morning but bp remained high. Coronavirus screen: At this time, the client does not indicate any symptoms associated with coronavirus-19. Ebola Screen: No symptoms or risks identified at this time. Initial Sepsis Screen: Does the patient meet any 2 criteria? No. Patient's initial sepsis screen is negative. Does the patient have a suspected source of infection? No. Patient's initial sepsis screen is negative. Risk Assessment: Do you want to hurt yourself or someone else? Patient reports no desire to harm self or others. Onset of symptoms was November 27, 2023. Care prior to arrival: IV initiated. 18 GA, in the left antecubital area. 08:18 Acuity: JAZ 3 ko1 08:18 Method Of Arrival: EMS: [facility] ko1 Triage Assessment: 08:20 General: Appears in no apparent distress. Behavior is calm, cooperative, appropriate ko1 for age. Pain: Denies pain. EENT: No deficits noted. Neuro: Level of Consciousness is awake, alert, obeys commands, Oriented to person, place, time, situation, Appropriate for age. Cardiovascular: No deficits noted. Respiratory: No deficits noted. GI: No deficits noted. : No deficits noted. Derm: No deficits noted. Musculoskeletal: No deficits noted. Historical: - Allergies: 08:20 No Known Allergies; ko1 - PMHx: 08:20 Hyperlipidemia; Hypertensive disorder; ko1 - PSHx: 08:20 Chin (Broken); ko1 - Immunization history:: Adult Immunizations unknown. - Infectious Disease History:: Denies. - Social history:: Smoking status: Patient denies any tobacco usage or history of. Screenin:21 [facility] ED Fall Risk Assessment (Adult) History of falling in the last 3 months, ko1 including since admission No falls in past 3 months (0 pts) Confusion or Disorientation No (0 pts) Intoxicated or Sedated No (0 pts) Impaired Gait No (0 pts) Mobility Assist Device Used No (0 pt) Altered Elimination No (0 pt) Score/Fall Risk Level 0 - 2 = Low Risk Oriented to surroundings, Maintained a safe environment, Educated pt \T\ family on fall prevention, incl call for assistance when getting out of bed, Assessed \T\ reinforced patient's understanding of fall precautions, Provided non-skid footwear, Hourly rounding (assess needs \T\ fall precautionary measures) done, Used ambulatory aids as needed (educated on \T\ assisted with). Abuse screen: Denies threats or abuse. Has been threatened or abused. Nutritional screening: No deficits noted. Tuberculosis screening: No symptoms or risk factors identified. Assessment: 08:21 Reassessment: see triage note. ko1 10:35 Reassessment: No changes from previously documented assessment. Patient and/or family mb9 updated on plan of care and expected duration. Pain level reassessed. Patient is alert, oriented x 3, equal unlabored respirations, skin warm/dry/pink. 11:43 Reassessment: Patient appears in no apparent distress at this time. No changes from mb9 previously documented assessment. Patient and/or family updated on plan of care and expected duration. Pain level reassessed. Patient is alert, oriented x 3, equal unlabored respirations, skin warm/dry/pink. Vital Signs: 08:18 BP 154 / 105; Pulse 87; Resp 15; Temp 98; Pulse Ox 97% ; ko1 09:14 BP 157 / 99; Pulse 97; Resp 14; Pulse Ox 99% ; ko1 09:45 BP 138 / 96; Pulse 76; Resp 18; Pulse Ox 99% on R/A; mb9 11:00 BP 144 / 98; Pulse 80; Resp 16; Pulse Ox 99% on R/A; mb9 11:43 BP 147 / 98; Pulse 84; Resp 16; Pulse Ox 100% on R/A; mb9 ED Course: 08:18 Patient arrived in ED. ko1 08:18 Lucila Ibarra, DUTCH is Primary Nurse. ko1 08:19 Kevin Torres DO is Attending Physician. ms3 08:20 Triage completed. ko1 08:20 Arm band placed on right wrist. Patient placed in an exam room, on a stretcher, on ko1 monitor car operator, on pulse oximetry, Patient notified of wait time. 08:21 Patient has correct armband on for positive identification. Placed in gown. Bed in low ko1 position. Call light in reach. Side rails up X2. Provided Education on: labs. Client placed on continuous cardiac and pulse oximetry monitoring. NIBP monitoring applied. monitor car operator on. Door closed. Noise minimized. Lights dimmed. Warm blanket given. 08:21 No provider procedures requiring assistance completed. Maintain EMS IV. Dressing ko1 intact. Good blood return noted. Site clean \T\ dry. Gauge \T\ site: 18g left AC. 08:34 Basic Metabolic Panel Sent. ko1 08:34 CBC with Diff Sent. ko1 08:34 Troponin HS Sent. ko1 09:17 XRAY Chest (1 view) In Process Unspecified. EDMS 10:05 Report given to Mica Plata RN. ko1 11:30 Mustapha Harmon MD is Referral Physician. ms3 11:44 IV discontinued, intact, bleeding controlled, No redness/swelling at site. Pressure mb9 dressing applied. Administered Medications: 11:18 Drug: Potassium Chloride PO Liquid 40 mEq PO once Route: PO; mb9 Medication: 08:21 VIS not applicable for this client. ko1 Outcome: 11:30 Discharge ordered by . ms3 11:44 Discharged to home ambulatory, mb9 11:44 Condition: stable 11:44 Discharge instructions given to patient, Instructed on discharge instructions, follow up and referral plans. Demonstrated understanding of instructions, follow-up care, 11:44 Patient left the ED. mb9 Signatures: Dispatcher [employer] EDVT Kevin Torres DO DO ms3 Lucila Ibarra, RN RN ko1 Ana M Pinedo RN RN mb9 Corrections: (The following items were deleted from the chart) 08:29 08:18 Method Of Arrival: EMS: [facility] ko1 ko1
--- NOTE | 2023-11-27 11:31 | EDPHYS ---
Physician Documentation [facility] Name: Zeyad Alfonso Age: 33 yrs Sex: Male : 1990 Arrival Date: 11/27/2023 Time: 08:14 Bed 19 Private MD: ED Physician Kevin Torres HPI: 11/26 09:07 This 33 yrs old Male presents to ER via EMS with complaints of HTN. [facility] 09:07 33-year-old male with past medical history of hyperlipidemia, hypertension presents to [facility] the emergency department via [facility] for hypertension. Patient states he was at home and came anxious and sweating and noticed his blood pressure to be elevated. EMS notes patient's blood pressure was 210/130 on their arrival. During transport patient's blood pressure improved to 159/90. Patient denies chest pain, shortness of breath, headache.. Historical: - Allergies: 08:20 No Known Allergies; ko1 - PMHx: 08:20 Hyperlipidemia; Hypertensive disorder; ko1 - PSHx: 08:20 Chin (Broken); ko1 - Immunization history:: Adult Immunizations unknown. - Infectious Disease History:: Denies. - Social history:: Smoking status: Patient denies any tobacco usage or history of. ROS: 09:07 Constitutional: Negative for fever, and chills. Neck: Negative for injury, pain, and ms3 swelling, Cardiovascular: Negative for chest pain, and palpitations. Respiratory: Negative for shortness of breath, cough, wheezing, and pleuritic chest pain, Abdomen/GI: Negative for abdominal pain, nausea, vomiting, diarrhea, and constipation, MS/Extremity: Negative for injury and deformity, Skin: Negative for injury, rash, and discoloration, Exam: 09:07 Constitutional: This is a well developed, well nourished patient who is awake, alert, ms3 and in no acute distress. Head/Face: Normocephalic, atraumatic. Neck: Trachea midline, no cervical lymphadenopathy. Supple, full range of motion without nuchal rigidity, or vertebral point tenderness. No Meningismus. Chest/axilla: Normal chest wall appearance and motion. Nontender with no deformity. Cardiovascular: Regular rate and rhythm with a normal S1 and S2. No gallops, murmurs, or rubs. Normal PMI, no JVD. No pulse deficits. Respiratory: Lungs have equal breath sounds bilaterally, clear to auscultation and percussion. No rales, rhonchi or wheezes noted. No increased work of breathing, no retractions or nasal flaring. Abdomen/GI: Soft, non-tender, with normal bowel sounds. No distension or tympany. No guarding or rebound. No evidence of tenderness throughout. Skin: Warm, dry with normal turgor. Normal color with no rashes, no lesions, and no evidence of cellulitis. MS/ Extremity: Pulses equal, no cyanosis. Neurovascular intact. Full, normal range of motion. 09:07 ECG was reviewed by the Attending Physician. ms3 Vital Signs: 08:18 BP 154 / 105; Pulse 87; Resp 15; Temp 98; Pulse Ox 97% ; ko1 09:14 BP 157 / 99; Pulse 97; Resp 14; Pulse Ox 99% ; ko1 09:45 BP 138 / 96; Pulse 76; Resp 18; Pulse Ox 99% on R/A; mb9 11:00 BP 144 / 98; Pulse 80; Resp 16; Pulse Ox 99% on R/A; mb9 11:43 BP 147 / 98; Pulse 84; Resp 16; Pulse Ox 100% on R/A; mb9 MDM: 08:19 Patient medically screened. ms3 14:04 Differential Diagnosis Hypertensive urgency versus electrolyte abnormality versus [place]. ms3 Data reviewed: vital signs, nurses notes, lab test result(s), EKG, radiologic studies, and as a result, I will discharge patient. I considered the following discharge prescriptions or medication management in the emergency department Medications were administered in the Emergency Department. See MAR. Independent interpretation of the following test(s) in the Emergency Department EKG: See my EKG interpretation above cutter down: rate is 76 beats/min, Rhythm is normal sinus rhythm, with no ectopy, Interpretation: normal rate, normal rhythm. Historians other than the Patient: EMS: . Care significantly affected by the following chronic conditions: Hypertension. Counseling: I had a detailed discussion with the patient and/or guardian regarding the historical points, exam findings, and any diagnostic results supporting the discharge/admit diagnosis, lab results, radiology results, the need for outpatient follow up, to return to the emergency department if symptoms worsen or persist or if there are any questions or concerns that arise at home. Special discussion: I discussed with the patient/guardian in detail that at this point there is no indication for admission to the hospital. It is understood, however, that if the symptoms persist or worsen the patient needs to return immediately for re-evaluation. ED course: Discussed labs, EKG, chest x-ray with patient. Patient given potassium replacement in the emergency department. Patient to follow-up with primary care physician in 2 to 3 days. Patient understands and agrees with plan. All questions were answered. Return precautions discussed include worsening symptoms, or any other concerns. 11/26 08:19 Order name: Basic Metabolic Panel; Complete Time: 09:05 ms3 11/26 08:19 Order name: CBC with Diff; Complete Time: 09:05 ms3 11/26 08:19 Order name: Troponin HS; Complete Time: 09:05 ms3 11/26 08:19 Order name: XRAY Chest (1 view); Complete Time: 11:14 ms3 11/26 08:19 Order name: EKG; Complete Time: 08:20 ms3 11/26 08:19 Order name: Cardiac monitoring; Complete Time: 08:31 ms3 11/26 08:19 Order name: EKG - Nurse/Tech; Complete Time: 08:42 ms3 11/26 08:19 Order name: IV Saline Lock; Complete Time: 08:31 ms3 11/26 08:19 Order name: Labs collected and sent; Complete Time: 08:34 ms3 11/26 08:19 Order name: O2 Per Protocol; Complete Time: 08:31 ms3 11/26 08:19 Order name: O2 Sat Monitoring; Complete Time: 08:31 ms3 EC:07 Rate is 74 beats/min. Rhythm is regular. QRS [place] is Normal. CA interval is normal. QRS ms3 interval is normal. QT interval is normal. Clinical impression: Normal ECG. Interpreted by me. Reviewed by me. Administered Medications: 11:18 Drug: Potassium Chloride PO Liquid 40 mEq PO once Route: PO; mb9 Disposition Summary: 11/27/23 11:30 Discharge Ordered Notes: Location: Home ms3 Condition: Stable ms3 Diagnosis - Essential (primary) hypertension ms3 - Hypokalemia ms3 Followup: ms3 - With: Mustapha Harmon MD - When: 2 - 3 days - Reason: Recheck today's complaints Discharge Instructions: - Hypertension, Adult ms3 - DASH Eating Plan ms3 - Discharge Summary Sheet mb9 Forms: - Medication Reconciliation Form ms3 - Antibiotic Education ms3 - Prescription Opioid Use ms3 - Patient Portal Instructions ms3 - Leadership Thank You Letter ms3 - Work release form mb9 Signatures: Dispatcher [employer] Kevin Langley DO DO ms3 Lucila Ibarra RN RN ko1 Ana M Pinedo RN RN mb9
[2023-11-27 11:49] VITALS: TEMP 98
[2023-11-27 12:22] VITALS: BP 147/98; O2SAT 100
--- NOTE | 2023-11-29 16:51 | EKG ---
Test Date: 2023-11-27 Test Time: 08:39:37 Bakery Clerk: NANCY MEASUREMENT RESULTS: Intervals: Rate: 74 RI: 156 QRSD: 88 QT: 372 QTc: 412 [place]: P: 26 RI: 156 QRS: 34 T: 23 INTERPRETIVE STATEMENTS: Normal sinus rhythm Normal ECG Compared to ECG 11/04/2023 08:32:43 No significant changes Electronically Signed On 11-29-23 16:44:20 CDT by Mustapha Harmon
== END 2023-11-27 11:44 | disposition home or self-care (01) ==
LOC: ER 08:14
DX: I10 Essential (primary) hypertension (principal); E87.6 Hypokalemia
CPT/HCPCS: 36415; 71045; 80048; 84484; 85025; 93005; 99284

== ENCOUNTER 2024-01-20 17:47 | Emergency (ER) | payer OTHER ==
--- OUTSIDE RECORDS SUMMARY | 2024-01-20 17:50 | XMS REPORT | Continuity of Care Document ---
Author Name Unknown Address [address] [facility]. [address] [place] [address] [facility] thconnect Address [address] [facility] [address] [place] [address] Care Team Providers Care Pneumatic Tester Name Role Phone PCP, PATIENT DOES NOT HAVE A Primary Care Physic nirmal Unavailable Néstor, General Cardiology Attending Clinician Unav KRISHAN Hurtado Attending Clinician Unavailable Krishan Quesada MD Attending Clinician [phone] KRISHAN QUESADA Admitting Clinician Unavailable Payers Payer Name Policy Type Policy Number Effective Date Expirati on Date Source [facility] [id number] 2022 00:00:00 Allergies, Adverse Reactions, Alerts Allergy Name Allergy Type Status Severity Reaction(s) Onset Date Inactive Date Treating Clinician Comments Source NO KNOWN ALLERGIE S Drug Class Active [facility] Social History Social Habit Start Date Stop Date Quantity Comments Source Sexual orientation U [facility] Sex Assigned At 1990 00:00:00 1990 00:00:00 [facility] Smoking Status Start Date Stop Date Source Tobacco smoking consumption unknown [facility] Vital Signs Vital Name Observation Time Observation Value Comments S jef Systolic blood pressure 2023-05-13 19:00:00 136 mm[Hg] [facility] Diastolic blood pressure 2023-05-13 19:00:00 81 mm[Hg] [facility] Heart rate 2023-05-13 19:00:00 78 /min [facility] Respiratory rate 2023-05-13 19:00:00 20 /min [facility] Oxygen saturation in Arterial blood by Pulse oximetry 2023-05-13 19:00:00 97 /min [facility] Body temperature 2023-05-13 16:04:00 36.83 [place] [facility] Body height 2023-05-13 16:04:00 170.2 cm [facility] Body weight 2023-05-13 16:04:00 91.627 kg [facility] BMI 2023-05-13 16:04:00 31.64 kg/m2 [facility] Procedures Procedure Date / Time Performed Performing Clinician Source TROPONIN I 2023-05-13 18:17:00 [facility] XR CHEST 1 VW 2023-05-13 17:48:49 Krishan Quesada [facility] URINALYSIS 2023-05-13 16:48:00 [facility] URINE DRUG (IMMUNOASSAY) - COMPREHENSIVE DRUG SCREEN W/O REFLEX 2023-05-13 16:48:00 Krishan Quesada [facility] LIPASE 2023-05-13 16:15:00 Krishan Quesada [facility] TROPONIN I 2023-05-13 16:15:00 Krishan Quesada [facility] COMP. METABOLIC PANEL ([id number]) 2023-05-13 16:15:00 Krishan Quesada [facility] ETHANOL 2023-05-13 16:15:00 [facility] CBC WITH DIFF 2023-05-13 16:15:00 Krishan Quesada [facility] PROTHROMBIN TIME / INR 2023-05-13 16:15:00 Milind Quesada [facility] ACTIVATED PARTIAL THRMPLAS HONG 2023-05-13 16:15:00 Krishan Quesada [facility] N-TERMINAL PRO-BNP 2023-05-13 16:15:00 Krishan Quesada [facility] HB ECG ROUTINE & RHYTHM STRIP 2023-05-13 16:07:23 Krishan Quesada [facility] Encounters Start Date/Time End Date/Time Encounter Type Admission Type Attending Clinicians Care Facility Care Department Encounter ID Source 2023-05-15 00:00:00 2023-05-15 00:00:00 Letter (Out) Néstor, General Cardiology [facility] [id number] [facility] 2023-05-13 11:03:00 2023-05-13 14:31:00 Emergency X KRISHAN QUESADA [facility] ERT [id number] [facility] 2023-05-13 11:03:00 2023-05-13 14:31:00 Emergency Krishan Quesada [facility] [id number] [facility] Results Test Description Test Time Test Comments Results Result Co mments [facility] 18:22:05* Test Item Value Reference Range Interpretation Comme nts ALCOHOL (test code = 8049998590) 25 mg/dL SHWETA (test code = SHWETA) <10 Uiqbcwlq37-205 Toxic>100 Depression of RUBBER STAMPS AND DIES SUPERVISOR>400 Fatalities Reported [facility] [id number] 17:34:47* Test Item Value Reference Range Interpretation Comme [facility] NT-proBNP (test code = 56092-8) <=125 Lab Interpretation (test cod e = 29641-3) Normal [facility] [id number] 17:26:01* Test Item Value Reference Range Interpretation Comme [facility] TROPONIN I (test code = 9781483065) <=0.034 SHWETA (test code = SHWETA) Reference [...] of biotin. Lab Interpretation (test code = 52589-2) Normal [facility]. METABOLIC PANEL (34832)2023-05-13 17:17:22* Test Item Value Reference Range Interpretation Comme nts NA (test code = 9901811667) 137 mmol/L 135-145 K (test code = 7021842872) 3.6 mmol/L 3.5-5.0 CL (test code = 9869120162) 100 mmol/L 98-108 CO2 TOTAL (test code = 8977745459) 18 mmol/L 23-31 L AGAP (test code = 1728193313) 19 2-16 H BUN (test code = 7882757623) 13 mg/dL 7-23 GLUCOSE (test code = 8533439730) 99 mg/dL 70-110 CREATININE (test code = 7457724601) 0.81 mg/dL 0.60-1.25 TOTAL BILI (test code = 1776444177) 0.5 mg/dL 0.1-1.1 CALCIUM (test code = 3310866240) 8.9 mg/dL 8.6-10.6 T PROTEIN (test code = 6791320771) 8.5 g/dL 6.3-8.2 H ALBUMIN (test code = 1007180017) 4.8 g/dL 3.5-5.0 ALK PHOS (test code = 6695382552) 71 U/L 34-122 ALTv (test code = 1742-6) 32 U/L 5-50 AST(SGOT) (test code = 7664247691) 27 U/L 13-40 eGFR (test code = 4855451714) 110.4 mL/min/1.73m2 SHWETA (test code = SHWETA) [...] imaging tests). Lab Interpretation (test code = 96534-1) [facility] 17:17:00* Test Item Value Reference Range Interpretation Comme [facility] LIPASE (test code = 8442605161) 56 U/L 0-220 Lab Interpretation (test cod e = 32283-2) Normal [facility] THRM[facility] [id number] 17:14:19* Test Item Value Reference Range Interpretation Comme [facility] APTT Patient (test code = 3173-2) 30 See_Comment [Automated message] The system which generated this result transmitted reference range: 23 - 38 Seconds. The reference range was not used to interpret this result as normal/abnormal. SHWETA (test code = SHWETA) The [facility] patient population mean normal value for aPTT is 30 seconds. Lab Interpretation (test code = 89137-0) Normal [facility] / [id number] 17:11:57* Test Item Value Reference Range Interpretation Comme [facility] PROTIME PATIENT (test code = 5964-2) 13.0 See_Comment [Automated UserZoom ge] The system which generated this result transmitted reference range: 12.0 - 14.7 Seconds. The reference range was not used to interpret this result as normal/abnormal. INR (test code = 6301-6) 1.0 Normal INR <1.1; Warfarin Therapeutic range 2.0 to 3.0 or 2.5 to 3.5, depending upon the indications. Lab Interpretation (test code = 63551-9) Normal [facility] WITH [id number] 16:50:17* Test Item Value Reference Range Interpretation [...] g/dL 31.2-35.0 H RDW-SD (test code = 11591-2) 36.7 fL 38.5-51.6 L RDW-CV (test code = 788-0) 11.6 % 12.1-15.4 L PLT (test code = 777-3) 251 See_Comment [Automated messa ge] The system which generated this result transmitted reference range: 150 - 328 10*3/?L. The reference range was not used to interpret this result as normal/abnormal. MPV (test code = 01730-4) 10.2 fL 9.8-13.0 NRBC/100 WBC (test code = 9464187223) 0.0 See_Comment [Automated AIRTAME ssage] The system which generated this result transmitted reference range: 0.0 - 10.0 /100 WBCs. The reference range was not used to interpret this result as normal/abnormal. NRBC x10^3 (test code = 8911298059) See_Comment [Automated messa ge] The system which generated this result transmitted reference range: 10*3/?L. The reference range was not used to interpret this result as normal/abnormal. GRAN MAT (NEUT) % (test code = 770-8) 60.0 % IMM GRAN % (test code = 2544528210) 1.00 % LYMPH % (test code = 736-9) 28.1 % MONO % (test code = 5905-5) 9.3 % EOS % (test code = 713-8) 1.1 % BASO % (test code = 706-2) 0.5 % GRAN MAT x10^3(ANC) (test code = 8746163910) 5.67 10*3/uL 1.99-6.95 IMM GRAN x10^3 (test code = 2147321524) 0.09 10*3/uL 0.00-0.06 H LYMPH x10^3 (test code = 731-0) 2.66 10*3/uL 1.09-3.23 MONO x10^3 (test code = 742-7) 0.88 10*3/uL 0.36-1.02 EOS x10^3 (test code = 711-2) 0.10 10*3/uL 0.06-0.53 BASO x10^3 (test code = 704-7) 0.05 10*3/uL 0.01-0.09 Lab Interpretation (test code = 27220-0) Abnormal [facility]"
[2024-01-20 18:27] LABS: Absolute Eosinophils 0.1 K/uL (0-0.5); Absolute Lymphocytes (CBC) 2.2 K/uL (0.7-4.9); Absolute Monocytes 0.7 K/uL (0.1-1.3); Absolute Neutrophil 3.7 K/uL (1.8-8.0); Basophils % 0.7 % (0-1.3); Eosinophils % 1.6 % (0-4.4); Hematocrit 46.2 % (39.6-49.0); Hemoglobin 16.2 g/dL (13.6-17.9); Lymphocytes % 32.9 % (15.3-44.8); MCH 31.8 pg (27.0-35.0); MCHC 35.1 g/dL (32.0-36.0); MCV 90.8 fL (80-100); MPV 8.1 fL (7.6-11.3); Monocytes % 10.3 % (3.3-12.3); Neutrophils % 54.5 % (41.7-73.7); Nucleated Red Blood Cells % 0.1 % (0-0); Platelets 226 thou/uL (152-406); RBC Red Blood Cell Count 5.09 M/uL (4.33-5.43)
[2024-01-20 18:46] LABS: Anion Gap 8.5 mEq/L (5.0-15.0); Potassium 3.5 mEq/L (3.5-5.1); Troponin High Sensitivity 3.9 pg/mL (<58.9)
--- NOTE | 2024-01-20 18:55 | EDPHYS ---
Physician Documentation [facility] Name: Zeyad Alfonso Age: 33 yrs Sex: Male : 1990 Arrival Date: 01/20/2024 Time: 17:47 Bed 20 Private MD: ED Physician Marito Vazquez HPI: 01/19 18:12 This 33 yrs old Male presents to ER via Ambulatory with complaints of High ec2 Blood Pressure, Dizziness. 18:12 Patient arrives today for evaluation of elevated blood pressure as well as dizziness. ec2 Patient reports that he was laying down and felt dizzy, felt lightheaded, states that the symptoms had since resolved however was told to come from his family. Patient denies any chest pain or difficulty breathing at this time. He states he fell like he was in a pass out. States that symptoms lasted several seconds to a minute and they resolved without any intervention. Reports history of hypertension, takes metoprolol.. Historical: - Allergies: 18:05 No Known Allergies; hb - Home Meds: 18:05 Metoprolol Tartrate Oral [Active]; hb - PMHx: 18:05 Hyperlipidemia; Hypertensive disorder; hb - PSHx: 18:05 Chin (Broken); hb - Immunization history:: Adult Immunizations up to date. - Infectious Disease History:: Denies. - Social history:: Smoking status: Reported history of juuling and/or vaping. ROS: 18:12 Constitutional: as per hpi ec2 Exam: 18:12 Constitutional: GEN: NAD Head: atraumatic Eyes: EOMI Ears: External ears are ec2 normal. CV: regular rate LUNGS: no respiratory distress ABD: non-distended SKIN: no evidence of rashes MSK: no evidence of trauma NEURO: moves all extremities equally Vital Signs: 18:03 BP 139 / 96; Pulse 84; Resp 20; Temp 97.9(TE); Pulse Ox 100% on R/A; Weight 90.72 kg; hb Height 5 ft. 7 in. ; Pain 0/10; 18:30 BP 130 / 81; Pulse 85; Resp 18; Pulse Ox 97% on R/A; me1 19:00 BP 137 / 96; Pulse 77; Resp 15; Pulse Ox 94% on R/A; me1 18:03 Body Mass Index 31.32 (90.72 kg, 170.18 cm) hb 18:03 Pain Scale: Adult hb MDM: 17:56 Patient medically screened. ec2 18:12 Data reviewed: vital signs. ED course: Patient arrives today for evaluation of ec2 lightheadedness as well as elevated blood pressure. Examination remarkable for well-appearing nontoxic and appears otherwise in no acute distress with reassuring hemodynamics will obtain lab work, EKG, chest x-ray. Differential diagnosis includes arrhythmia, electrolyte disturbances, anemia. 18:20 ED course: EKG independently reviewed and interpreted by me, shows normal sinus rhythm, ec2 rate of 71, no acute ST segment elevations, intervals are nonconcerning.. 18:54 ED course: Metabolic profile is reassuring, troponin within normal ranges. Chest x-ray ec2 independently reviewed and interpreted by me, shows no acute intrathoracic process. Will discharge home, return precautions given. . 01/19 17:57 Order name: Basic Metabolic Panel; Complete Time: 18:54 ec2 01/19 17:57 Order name: CBC with Diff; Complete Time: 18:34 ec2 01/19 17:57 Order name: Troponin HS; Complete Time: 18:54 ec2 01/19 17:57 Order name: XRAY Chest (1 view); Complete Time: 19:03 ec2 01/19 17:57 Order name: Cardiac monitoring; Complete Time: 18:21 ec2 01/19 17:57 Order name: EKG - Nurse/Tech; Complete Time: 18:21 ec2 01/19 17:57 Order name: IV Saline Lock; Complete Time: 18:21 ec2 01/19 17:57 Order name: Labs collected and sent; Complete Time: 18:21 ec2 01/19 17:57 Order name: O2 Per Protocol; Complete Time: 18:21 ec2 01/19 17:57 Order name: O2 Sat Monitoring; Complete Time: 18:21 ec2 Administered Medications: No medications were administered Disposition Summary: 01/20/24 18:54 Discharge Ordered Notes: Location: Home ec2 Condition: Stable ec2 Diagnosis - Dizziness and giddiness ec2 Followup: ec2 - With: Private Physician - When: - Reason: Re-evaluation by your physician Discharge Instructions: - Discharge Summary Sheet ec2 - Dizziness, [id number]-fv-Oxbr ec2 Forms: - Medication Reconciliation Form ec2 - Antibiotic Education ec2 - Prescription Opioid Use ec2 - Patient Portal Instructions ec2 - Leadership Thank You Letter ec2 Signatures: Dispatcher [employer] [facility] Ruthie Clemente RN RN Marito Vazquez MD MD ec2 Corrections: (The following items were deleted from the chart) 17:57 17:57 Chest Single View+RAD.RAD.BRZ ordered. [facility] 18:12 18:12 Patient arrives today for evaluation of elevated blood pressure as well as ec2 dizziness. Patient reports that he was laying down and felt dizzy, felt lightheaded, states that the symptoms had since resolved however was told to come from his family. Patient denies any chest pain or difficulty breathing at this time.. ec2
--- NOTE | 2024-01-20 18:55 | ER ---
Nurse's Notes [facility] Name: Zeyad Alfonso Age: 33 yrs Sex: Male : 1990 Arrival Date: 01/20/2024 Time: 17:47 Bed 20 Private MD: Diagnosis: Dizziness and giddiness Presentation: 01/19 18:03 Chief complaint: :I was laying on the couch then I got really hot and dizzy and short hb of breath then felt like I was going to pass out.". Coronavirus screen: At this time, the client does not indicate any symptoms associated with coronavirus-19. Ebola Screen: No symptoms or risks identified at this time. Initial Sepsis Screen: Does the patient meet any 2 criteria? No. Patient's initial sepsis screen is negative. Does the patient have a suspected source of infection? No. Patient's initial sepsis screen is negative. Risk Assessment: Do you want to hurt yourself or someone else? Patient reports no desire to harm self or others. Onset of symptoms was January 20, 2024. 18:03 Method Of Arrival: Ambulatory hb 18:03 Acuity: JAZ 3 hb Triage Assessment: 18:05 General: Appears in no apparent distress. Behavior is calm, cooperative. Pain: Denies hb pain. Neuro: Level of Consciousness is awake, alert, obeys commands, Oriented to person, place, time, situation. Cardiovascular: Patient's skin is warm and dry. Respiratory: Respiratory effort is even, unlabored, Respiratory pattern is regular, symmetrical. Historical: - Allergies: 18:05 No Known Allergies; hb - Home Meds: 18:05 Metoprolol Tartrate Oral [Active]; hb - PMHx: 18:05 Hyperlipidemia; Hypertensive disorder; hb - PSHx: 18:05 Chin (Broken); hb - Immunization history:: Adult Immunizations up to date. - Infectious Disease History:: Denies. - Social history:: Smoking status: Reported history of juuling and/or vaping. Screenin:42 [facility] ED Fall Risk Assessment (Adult) History of falling in the last 3 months, me1 including since admission No falls in past 3 months (0 pts) Confusion or Disorientation No (0 pts) Intoxicated or Sedated No (0 pts) Impaired Gait No (0 pts) Mobility Assist Device Used No (0 pt) Altered Elimination No (0 pt) Score/Fall Risk Level 0 - 2 = Low Risk Maintained a safe environment, Provided non-skid footwear, Hourly rounding (assess needs \\T\\ fall precautionary measures) done. Abuse screen: Denies threats or abuse. Nutritional screening: No deficits noted. Tuberculosis screening: No symptoms or risk factors identified. Assessment: 18:42 General: Appears comfortable, ill, well groomed, well developed, well nourished, me1 Behavior is calm, cooperative, appropriate for age, Reports :I was laying on the couch then I got really hot and dizzy and short of breath then felt like I was going to pass out.". Pain: Denies pain. Neuro: Level of Consciousness is awake, alert, obeys commands, Oriented to person, place, time, situation, Appropriate for age Reports dizziness. Cardiovascular: Reports lightheadedness, shortness of breath, Patient's skin is warm and dry. Respiratory: Reports shortness of breath at rest for one episode with dizziness and feeling hot Airway is patent Respiratory effort is even, unlabored, Respiratory pattern is regular, symmetrical. GI: No signs and/or symptoms were reported involving the gastrointestinal system. : No signs and/or symptoms were reported regarding the genitourinary system. EENT: No signs and/or symptoms were reported regarding the EENT system. Derm: Skin is intact, is healthy with good turgor, Skin is pink, warm \\T\\ dry. Musculoskeletal: No signs and/or symptoms reported regarding the musculoskeletal system. Vital Signs: 18:03 BP 139 / 96; Pulse 84; Resp 20; Temp 97.9(TE); Pulse Ox 100% on R/A; Weight 90.72 kg; hb Height 5 ft. 7 in. ; Pain 0/10; 18:30 BP 130 / 81; Pulse 85; Resp 18; Pulse Ox 97% on R/A; me1 19:00 BP 137 / 96; Pulse 77; Resp 15; Pulse Ox 94% on R/A; me1 18:03 Body Mass Index 31.32 (90.72 kg, 170.18 cm) hb 18:03 Pain Scale: Adult hb ED Course: 17:49 Patient arrived in ED. mr 17:52 Marito Vazquez MD is Attending Physician. ec2 17:59 Eddleman, Мария, RN is Primary Nurse. me1 18:05 Triage completed. hb 18:06 Arm band placed on. hb 18:21 Initial lab(s) drawn, by me, sent to lab. EKG done, by ED staff. Inserted saline lock: aw1 20 gauge in right antecubital area, using aseptic technique. 18:21 Basic Metabolic Panel Sent. aw1 18:21 CBC with Diff Sent. aw1 18:21 Troponin HS Sent. aw1 18:42 Patient has correct armband on for positive identification. Bed in low position. Call me1 light in reach. Side rails up X2. Provided Education on: POC. Verbalized understanding. . Client placed on continuous cardiac and pulse oximetry monitoring. NIBP monitoring applied. monitor car operator on. Pulse ox on. NIBP on. 18:42 No provider procedures requiring assistance completed. me1 18:58 XRAY Chest (1 view) In Process Unspecified. EDMS 19:07 IV discontinued, intact, bleeding controlled, No redness/swelling at site. Pressure me1 dressing applied. Administered Medications: No medications were administered Medication: 18:42 VIS not applicable for this client. me1 Outcome: 18:54 Discharge ordered by . ec2 19:07 Discharged to home ambulatory, me1 19:07 Condition: stable 19:07 Discharge instructions given to patient, Instructed on discharge instructions, follow up and referral plans. Demonstrated understanding of instructions, follow-up care, 19:07 Patient left the ED. me1 Signatures: Dispatcher [employer] EDAR Myron Ana M, Reg Reg mr Ruthie Clemente RN RN Fatemeh Valentino aw1 Мария Mayo RN RN me1 Marito Vazquez MD MD ec2 Corrections: (The following items were deleted from the chart) 18:36 18:03 Chief complaint: :I was laying on the couch then I got really hot and dizzy and me1 short of breath then felt like I was going to pass out." 18:42 18:03 Chief complaint: :I was laying on the couch then I got really hot and dizzy and me1 short of breath then felt like I was going to pass out." me1
--- NOTE | 2024-01-20 19:01 | RAD REPORT ---
EXAM DESCRIPTION: RAD - Chest Single View - 01/20/2024 6:56 pm CLINICAL HISTORY: COUGH Chest pain. COMPARISON: Chest Single View dated 01/13/2024; Chest Single View dated 11/27/2023; Chest Single View d ated 10/01/2023; Chest Single View dated 07/31/2023 FINDINGS: Portable technique limits examination quality. The lungs are grossly clear. The heart is normal in size. No displaced fractures. IMPRESSION: No acute intrathoracic process suspected.
[2024-01-20 19:32] VITALS: BP 137/96; TEMP 97.9; O2SAT 94
--- NOTE | 2024-01-21 14:53 | EKG ---
Test Date: 2024-01-20 Test Time: 18:12:09 Circuit Board Assembler: BAILEE MEASUREMENT RESULTS: Intervals: Rate: 71 CA: 148 QRSD: 88 QT: 342 QTc: 371 [place]: P: 28 CA: 148 QRS: 45 T: 26 INTERPRETIVE STATEMENTS: Normal sinus rhythm Normal ECG Compared to ECG 01/13/2024 16:13:04 Sinus bradycardia no longer present Early repolarization no longer present Electronically Signed On 01-21-24 14:51:00 CDT by Mustapha Harmon
== END 2024-01-20 19:07 | disposition home or self-care (01) ==
LOC: ER 17:47
DX: R42 Dizziness and giddiness (principal)
CPT/HCPCS: 36415; 71045; 80048; 84484; 85025; 93005; 99284

== ENCOUNTER 2024-08-20 00:21 | Emergency (ER) | payer OTHER ==
[2024-08-20] MEDS ORDERED: IBUPROFEN 400 MG TAB ONE (02:13)
[2024-08-20] MEDS ORDERED: CODEINE 30MG/APAP 300MG TAB ONE (02:14)
[2024-08-20] MEDS ORDERED: METOCLOPRAMIDE 5 MG TAB ONE (02:14)
--- NOTE | 2024-08-20 02:47 | ER ---
Nurse's Notes [facility] Name: Zeyad Alfonso Age: 34 yrs Sex: Male : 1990 Arrival Date: 08/20/2024 Time: 00:21 Bed 5 Private MD: Diagnosis: Acute tension type headache Presentation: 08/20 00:31 Chief complaint: Patient states: started having pain in back of head during sex the day vc1 before yesterday, pain came back again today. Coronavirus screen: Client denies travel out of the [place] in the last 14 days. At this time, the client does not indicate any symptoms associated with coronavirus-19. Ebola Screen: Patient negative for fever greater than or equal to 101.5 degrees Fahrenheit, and additional compatible Ebola Virus Disease symptoms Patient denies exposure to infectious person. Patient denies travel to an Ebola-affected area in the 21 days before illness onset. No symptoms or risks identified at this time. Initial Sepsis Screen: Does the patient meet any 2 criteria? No. Patient's initial sepsis screen is negative. Does the patient have a suspected source of infection? No. Patient's initial sepsis screen is negative. Risk Assessment: Do you want to hurt yourself or someone else? Patient reports no desire to harm self or others. Onset of symptoms was August 18, 2024. 00:31 Method Of Arrival: Ambulatory vc1 00:31 Acuity: JAZ 3 vc1 Triage Assessment: 00:35 Headache History: Denies prior headaches. General: Appears in no apparent distress. vc1 uncomfortable, ill, Behavior is calm, cooperative, appropriate for age. Pain: Complains of pain in left parietal area, right parietal area and occipital area Pain does not radiate. Pain currently is 6 out of 10 on a pain scale. at worst was 10 out of 10 on a pain scale. Quality of pain is described as sharp, Pain began 2-3 days ago. Also complains of photophobia. EENT: No deficits noted. No signs and/or symptoms were reported regarding the EENT system. Neuro: Reports dizziness, headache in entire occipital area, that is the "worst ever", photophobia. Cardiovascular: Capillary refill < 3 seconds Patient's skin is warm and dry. Respiratory: Airway is patent Respiratory effort is even, unlabored, Respiratory pattern is regular, symmetrical. GI: No deficits noted. No signs and/or symptoms were reported involving the gastrointestinal system. : No deficits noted. No signs and/or symptoms were reported regarding the genitourinary system. Derm: Skin is intact, is healthy with good turgor, Skin is dry, Skin is normal, Skin temperature is warm. Musculoskeletal: Circulation, motion, and sensation intact. Range of motion: intact in all extremities. Historical: - Allergies: 00:33 No Known Allergies; vc1 - Home Meds: 00:33 metoprolol succinate 25 mg oral Tablet, Extended Release 24 hr daily [Active]; vc1 - PMHx: 00:33 Hyperlipidemia; Hypertensive disorder; vc1 - PSHx: 00:33 Chin (Broken); vc1 - Immunization history:: Client reports having NOT received the Covid vaccine. Flu vaccine is not up to date. - Infectious Disease History:: Denies. - Social history:: Smoking status: Reported history of juuling and/or vaping. - Family history:: not pertinent. Screenin:35 [facility] ED Fall Risk Assessment (Adult) History of falling in the last 3 months, vc1 including since admission No falls in past 3 months (0 pts) Confusion or Disorientation No (0 pts) Intoxicated or Sedated No (0 pts) Impaired Gait No (0 pts) Mobility Assist Device Used No (0 pt) Altered Elimination No (0 pt) Score/Fall Risk Level 0 - 2 = Low Risk Oriented to surroundings, Maintained a safe environment, Educated pt \\T\\ family on fall prevention, incl call for assistance when getting out of bed. Abuse screen: Denies threats or abuse. Nutritional screening: No deficits noted. Tuberculosis screening: No symptoms or risk factors identified. Vital Signs: 00:31 BP 134 / 102; Pulse 82; Resp 15; Temp 99; Pulse Ox 98% ; Weight 90.72 kg; Height 5 ft. vc1 7 in. ; Pain 6/10; 00:31 Body Mass Index 31.32 (90.72 kg, 170.18 cm) vc1 00:31 Pain Scale: Adult vc1 [place] Coma Score: 21:17 Eye Response: spontaneous(4). Motor Response: obeys commands(6). Verbal Response: sp4 oriented(5). Total: 15. 21:18 Eye Response: spontaneous(4). Motor Response: obeys commands(6). Verbal Response: sp4 oriented(5). Total: 15. ED Course: 00:24 Patient arrived in ED. im 00:33 Triage completed. vc1 00:34 Arm band placed on right wrist. vc1 00:34 Patient has correct armband on for positive identification. Bed in low position. vc1 00:51 Timothy Calderon MD is Attending Physician. sp4 01:26 CT Head Brain wo Cont In Process Unspecified. EDMS 03:34 Provided Education on: don't drive while taking Fioricet. vc1 03:34 No provider procedures requiring assistance completed. Patient did not have IV access vc1 during this emergency room visit. Administered Medications: 02:17 Drug: MetoCLOPramide PO 10 mg PO once Route: PO; jb4 02:17 Drug: Acetaminophen-Codeine PO (300 mg-30 mg) 2 tabs PO once; RASS on ADMIN: Combtv4, jb4 Very Agttd3, Agttd2, Rstlss1, AlertClm0, Drwsy-1, Lt Sdtn-2, Mod Sdtn-3, Dp Sdtn-4, UnArsble-5 Route: PO; 02:17 Drug: Ibuprofen PO 800 mg PO once Route: PO; jb4 Medication: 00:35 VIS not applicable for this client. vc1 Outcome: 02:47 Discharge ordered by . sp4 03:34 Discharged to home ambulatory, with significant other, vc1 03:34 Condition: good 03:34 Discharge instructions given to patient, Instructed on discharge instructions, follow up and referral plans. medication usage, Demonstrated understanding of instructions, follow-up care, medications, Prescriptions given X 1, 03:36 Patient left the ED. vc1 Signatures: Dispatcher [employer] EDMS Abebe Townsend RN DUTCH jb4 Celine Butler RN RN vc1 Timothy Calderon MD MD sp4 Teresa Alexandra im
--- NOTE | 2024-08-20 02:47 | EDPHYS ---
Physician Documentation [facility] Name: Zeyad Alfonso Age: 34 yrs Sex: Male : 1990 Arrival Date: 08/20/2024 Time: 00:21 Bed 5 Private MD: ED Physician Timothy Calderon HPI: 08/20 00:51 This 34 yrs old Male presents to ER via Ambulatory with complaints of Headache.sp4 21:16 34 -year-old male presents with acute onset posterior headache after having sp4 sexual intercourse. 21:18 . sp4 Historical: - Allergies: 00:33 No Known Allergies; vc1 - Home Meds: 00:33 metoprolol succinate 25 mg oral Tablet, Extended Release 24 hr daily [Active]; vc1 - PMHx: 00:33 Hyperlipidemia; Hypertensive disorder; vc1 - PSHx: 00:33 Chin (Broken); vc1 - Immunization history:: Client reports having NOT received the Covid vaccine. Flu vaccine is not up to date. - Infectious Disease History:: Denies. - Social history:: Smoking status: Reported history of juuling and/or vaping. - Family history:: not pertinent. ROS: 21:17 Constitutional: Negative for fever, chills, and weight loss, positive acute posterior sp4 headache 21:17 All other systems are negative, Exam: 21:17 Constitutional: This is a well developed, well nourished patient who is awake, alert, sp4 and in no acute distress. Head/Face: Normocephalic, atraumatic. Eyes: Pupils equal round and reactive to light, extra-ocular motions intact. Lids and lashes normal. Conjunctiva and sclera are not injected. Cornea within normal limits. Periorbital areas with no swelling, redness, or edema. Negative bilateral papilledema, normal bilateral funduscopy ENT: Nares patent. No nasal discharge, no septal abnormalities noted. Tympanic membranes are normal and external auditory canals are clear. Oropharynx with no redness, swelling, or masses, exudates, or evidence of obstruction, uvula midline. Mucous membranes moist. Neck: Trachea midline, no thyromegaly or masses palpated, and no cervical lymphadenopathy. Supple, full range of motion without nuchal rigidity, or vertebral point tenderness. Chest/axilla: Normal chest wall appearance and motion. Nontender with no deformity. No lesions are appreciated. Cardiovascular: Regular rate and rhythm with a normal S1 and S2. No gallops, murmurs, or rubs. Normal PMI, no JVD. No pulse deficits. Respiratory: Lungs have equal breath sounds bilaterally, clear to auscultation and percussion. No rales, rhonchi or wheezes noted. No increased work of breathing, no retractions or nasal flaring. Abdomen/GI: Soft, with normal bowel sounds. No distension or tympany. No guarding or rebound. No evidence of tenderness throughout. Back: No spinal tenderness. No costovertebral tenderness. Skin: Warm, dry with normal turgor. Normal color with no rashes, no lesions, and no evidence of cellulitis. MS/ Extremity: Pulses equal, no cyanosis. Neurovascular intact. Full, normal range of motion. Neuro: Awake and alert, GCS 15, oriented to person, place, time, and situation. Cranial nerves II-XII grossly intact. Motor strength 5/5 in all extremities. Sensory grossly intact. Psych: Awake, alert, with orientation to person, place and time. Behavior, mood, and affect are within normal limits Vital Signs: 00:31 BP 134 / 102; Pulse 82; Resp 15; Temp 99; Pulse Ox 98% ; Weight 90.72 kg; Height 5 ft. vc1 7 in. ; Pain 6/10; 00:31 Body Mass Index 31.32 (90.72 kg, 170.18 cm) vc1 00:31 Pain Scale: Adult vc1 [place] Coma Score: 21:17 Eye Response: spontaneous(4). Motor Response: obeys commands(6). Verbal Response: sp4 oriented(5). Total: 15. 21:18 Eye Response: spontaneous(4). Motor Response: obeys commands(6). Verbal Response: sp4 oriented(5). Total: 15. MDM: 00:52 Medical Screening Exam initiated sp4 21:18 Differential diagnosis: cluster headache, migraine, tension headache, vasomotor sp4 headache. Data reviewed: vital signs, nurses notes, radiologic studies, CT scan. ED course: EXAM DESCRIPTION: CT of the head without contrast CLINICAL HISTORY: HEADACHE COMPARISON: 07/31/2023 TECHNIQUE: Axial CT of the head obtained from the skull apex to the skull base without contrast. This exam was performed according to our departmental dose-optimization program, which includes automated exposure control, adjustment of the mA and/or kV according to patient size and/or use of iterative reconstruction technique. FINDINGS: No acute intracranial hemorrhage identified. No mass, mass effect, midline shift, or abnormal extra-axial fluid collection. No CT evidence of acute ischemic change identified, however, MRI is more sensitive in the assessment of acute ischemia. Ventricular system and sulcal spaces are normal in size and morphology. Basilar cisterns are patent. Visualized orbits and globes show no acute abnormality. No skull fracture identified. The visualized paranasal sinuses and the mastoid air cells are relatively well aerated. IMPRESSION: No acute intracranial abnormality on noncontrast CT. 08/20 00:51 Order name: CT Head Brain wo Cont sp4 Administered Medications: 02:17 Drug: MetoCLOPramide PO 10 mg PO once Route: PO; jb4 02:17 Drug: Acetaminophen-Codeine PO (300 mg-30 mg) 2 tabs PO once; RASS on ADMIN: Combtv4, jb4 Very Agttd3, Agttd2, Rstlss1, AlertClm0, Drwsy-1, Lt Sdtn-2, Mod Sdtn-3, Dp Sdtn-4, UnArsble-5 Route: PO; 02:17 Drug: Ibuprofen PO 800 mg PO once Route: PO; jb4 Disposition Summary: 08/20/24 02:47 Discharge Ordered Notes: Location: Home sp4 Problem: new sp4 Symptoms: have improved sp4 Condition: Stable sp4 Diagnosis - Acute tension type headache sp4 Followup: sp4 - With: Private Physician - When: 7 - 10 days - Reason: Recheck today's complaints Discharge Instructions: - Discharge Summary Sheet sp4 - Tension Headache, Adult, Cuca-vy-Fihd sp4 Forms: - Work release form vc1 - Patient Portal Instructions sp4 Prescriptions: - Fioricet 50-300-40 mg Oral capsule - take 1 capsule ORAL route every 8 hours PRN headache; 30 capsule; Refills: 0, sp4 Product Selection Permitted Signatures: Dispatcher [employer] Abebe Kent RN RN jb4 Celine Butler RN RN vc1 Timothy Calderon MD MD sp4
--- NOTE | 2024-08-20 03:26 | RAD REPORT ---
EXAM DESCRIPTION: CT of the head without contrast CLINICAL HISTORY: HEADACHE COMPARISON: 07/31/2023 TECHNIQUE: Axial CT of the head obtained from the skull apex to the skull base without contrast. This exam was performed according to our departmental dose-optimization program, which includes automated exposure control, adjustment of the mA and/or kV according to patient size and/or use of it erative reconstruction technique. FINDINGS: No acute intracranial hemorrhage identified. No mass, mass effect, midline shift, or abnormal extra-a xial fluid collection. No CT evidence of acute ischemic change identified, however, MRI is more sensitive in the assessment of acute ischemia. Ventricular system and sulcal spaces are normal in s ize and morphology. Basilar cisterns are patent. Visualized orbits and globes show no acute abnormality. No skull fracture identified. The visuali zed paranasal sinuses and the mastoid air cells are relatively well aerated. IMPRESSION: No acute intracranial abnormality on noncontrast CT. Electronically signed by: Manda Palm MD 08/20/2024 02:45 AM [facility] Due to temporary technical issues with the PACS/Bswift reporting system, reports are being david d by the in-house radiologist without review as a courtesy to ensure prompt reporting the interpreting radiologist is fully responsible for the content of the report. Transcribed Date/Time: 08/20/2024 3:25 AM
[2024-08-22 01:55] VITALS: BP 134/102; TEMP 99; O2SAT 98
== END 2024-08-20 03:36 | disposition home or self-care (01) ==
LOC: ER 00:21
DX: G44.209 Tension-type headache, unspecified, not intractable (principal); E78.5 Hyperlipidemia, unspecified; I10 Essential (primary) hypertension; F17.290 Nicotine dependence, other tobacco product, uncomplicated
CPT/HCPCS: 70450; 99283

== ENCOUNTER 2025-05-26 03:54 | Emergency (ER) | payer SELFPAY ==
[2025-05-26] MEDS ORDERED: METOCLOPRAMIDE 10 MG/2mL INJ ONE (04:24)
[2025-05-26] MEDS ORDERED: METOPROLOL TAR 25 MG TAB ONE (04:25)
[2025-05-26] MEDS ORDERED: DIPHENHYDRAMINE 50 MG/ML VIAL ONE (04:25)
[2025-05-26] MEDS ORDERED: KETOROLAC 30 MG/ML INJ ONE (04:25)
[2025-05-26] MEDS ORDERED: NA CHLORIDE 0.9% 500 ML ONE (04:25)
[2025-05-26 04:37] LABS: Hematocrit 47.3 % (39.6-49.0); Hemoglobin 16.6 g/dL (13.6-17.9); MCH 31.2 pg (27.0-35.0); MCHC 35.0 g/dL (32.0-36.0); Nucleated RBC Absolute Count 0.0 (0-0); Nucleated Red Blood Cells % 0.0 % (0-0); White Blood Count 7.60 thou/uL (4.3-10.9)
[2025-05-26 04:46] LABS: Absolute Lymphocytes (CBC) 1.4 K/uL (0.7-4.9); MCV 89.3 fL (80-100); MPV 8.2 fL (7.6-11.3); RBC Red Blood Cell Count 5.30 M/uL (4.33-5.43)
[2025-05-26 04:56] LABS: ALT/SGPT 30.0 U/L (16-61); AST/SGOT 16.0 U/L (15-37); Albumin 4.3 g/dL (3.4-5.0); Albumin/Globulin Ratio 1.1 (1.1-1.8); Alkaline Phosphatase 71.0 U/L (45-117); Anion Gap 9.5 mEq/L (5.0-15.0); BUN Blood Urea Nitrogen 12.0 mg/dL (7-18); Globulin 4.0 g/dL (2.3-3.5); Glucose Level 111.0 mg/dL (74-106); Potassium 3.5 mEq/L (3.5-5.1)
--- NOTE | 2025-05-26 05:49 | ER ---
Nurse's Notes [facility] Name: Zeyad Alfonso Age: 34 yrs Sex: Male : 1990 Arrival Date: 05/26/2025 Time: 03:54 Bed 17 Private MD: Diagnosis: Acute migraine headache, elevated blood pressure, noncompliance with medication abrasion;Essential (primary) hypertension Presentation: 05/26 04:00 Chief complaint: Patient states: HTN X3 DAYS. HAS BEEN OUT OF HIS BP MEDS FOR 1 1/2 jj7 MONTHS. STATES HE STARTED HAVING A HEADACHE, BLURRY VISION AND NUMBNESS TO HIS RIGHT ARM 3 HRS AGO. Coronavirus screen: At this time, the client does not indicate any symptoms associated with coronavirus-19. Ebola Screen: No symptoms or risks identified at this time. Initial Sepsis Screen: Does the patient meet any 2 criteria? No. Patient's initial sepsis screen is negative. Does the patient have a suspected source of infection? No. Patient's initial sepsis screen is negative. Risk Assessment: Do you want to hurt yourself or someone else? Patient reports no desire to harm self or others. Onset of symptoms was May 26, 2025. 04:00 Method Of Arrival: Ambulatory 7 04:00 Acuity: JAZ 3 jj7 Triage Assessment: 04:14 General: Appears in no apparent distress. comfortable, Behavior is calm, cooperative, jj7 appropriate for age. Pain: Complains of pain in back of head Pain currently is 4 out of 10 on a pain scale. Also complains of. Pain: Pain began 3 hours ago. Neuro: Reports blurred vision headache numbness in left arm. Neuro: Level of Consciousness is awake, alert, obeys commands, Oriented to person, place, time, situation, Appropriate for age Speech is normal, Facial symmetry appears normal. Respiratory: Airway is patent Respiratory effort is even, unlabored, Respiratory pattern is regular, symmetrical. 05:59 Headache History: Denies prior headaches. cp4 Historical: - Allergies: 04:14 No Known Allergies; jj7 - PMHx: 04:14 Hyperlipidemia; Hypertensive disorder; jj7 - PSHx: 04:14 Chin (Broken); jj7 - Immunization history:: Adult Immunizations up to date. - Infectious Disease History:: Denies. - Social history:: Smoking status: Reported history of juuling and/or vaping. Patient uses alcohol, weekly. Patient/guardian denies using street drugs, IV drugs. - Family history:: not pertinent. Screenin:32 [facility] ED Fall Risk Assessment (Adult) History of falling in the last 3 months, cp4 including since admission No falls in past 3 months (0 pts) Confusion or Disorientation No (0 pts) Intoxicated or Sedated No (0 pts) Impaired Gait No (0 pts) Mobility Assist Device Used No (0 pt) Altered Elimination No (0 pt) Score/Fall Risk Level 0 - 2 = Low Risk Oriented to surroundings, Maintained a safe environment, Assessed \T\ reinforced patient's understanding of fall precautions, Hourly rounding (assess needs \T\ fall precautionary measures) done. Abuse screen: Denies threats or abuse. Denies injuries from another. Nutritional screening: No deficits noted. Tuberculosis screening: No symptoms or risk factors identified. Never had TB. Assessment: 04:32 General: Appears in no apparent distress. comfortable, Behavior is calm, cooperative, cp4 appropriate for age. Pain: Complains of pain in left arm and back of head Pain does not radiate. Pain currently is 5 out of 10 on a pain scale. Neuro: Level of Consciousness is awake, alert, obeys commands, Oriented to person, place, time, situation. Cardiovascular: Patient's skin is warm and dry. Rhythm is sinus rhythm. Respiratory: Airway is patent Respiratory effort is even, unlabored. GI: No signs and/or symptoms were reported involving the gastrointestinal system. : No signs and/or symptoms were reported regarding the genitourinary system. EENT: No signs and/or symptoms were reported regarding the EENT system. Derm: No signs and/or symptoms reported regarding the dermatologic system. Musculoskeletal: No signs and/or symptoms reported regarding the musculoskeletal system. Vital Signs: 04:00 BP 160 / 102; Pulse 84; Resp 18; Pulse Ox 99% ; Weight 90.26 kg; Height 5 ft. 7 in. ; jj7 Pain 4/10; 05:13 BP 131 / 89; Pulse 64; Resp 18; Pulse Ox 96% ; cp4 05:56 BP 121 / 91; Pulse 61; Resp 18; Pulse Ox 98% ; cp4 04:00 Body Mass Index 31.17 (90.26 kg, 170.18 cm) [facility] 04:00 Pain Scale: Adult [facility] [place] Coma Score: 20:27 Eye Response: spontaneous(4). Motor Response: obeys commands(6). Verbal Response: sp4 oriented(5). Total: 15. ED Course: 03:56 Patient arrived in ED. mr 03:57 Timothy Calderon MD is Attending Physician. sp4 04:14 Triage completed. j7 04:14 Arm band placed on right wrist. Patient placed in an exam room, on a stretcher. j7 04:31 Chelsie Thomas is Primary Nurse. cp4 04:32 Bed in low position. Call light in reach. Side rails up X2. cp4 04:32 No provider procedures requiring assistance completed. Initial lab(s) drawn, by wa, cp4 sent to lab. EKG done, by ED staff, reviewed by Timothy Calderon MD. Inserted saline lock: 20 gauge in right antecubital area, using aseptic technique. Blood collected. Flushed with 10 mL NS. 05:47 Dany Manrique MD is Referral Physician. sp4 05:58 Provided Education on: hypertension. cp4 05:58 intact, bleeding controlled, No redness/swelling at site. Pressure dressing applied. cp4 Administered Medications: 04:31 Drug: Metoprolol PO 25 mg PO once Route: PO; cp4 05:22 Follow up: Response: No adverse reaction; Blood pressure is lowered cp4 04:32 Drug: Ketorolac IVP 30 mg IVP once Route: IVP; Site: right antecubital; cp4 05:22 Follow up: Response: No adverse reaction; Pain is decreased cp4 04:32 Drug: metoCLOPramide IVP 10 mg IVP once; over 1 to 2 minutes Route: IVP; Site: right cp4 antecubital; 05:22 Follow up: Response: No adverse reaction cp4 04:32 Drug: diphenhydrAMINE IVP 50 mg IVP once Route: IVP; Site: right antecubital; cp4 05:22 Follow up: Response: No adverse reaction cp4 04:32 Drug: NS 0.9% IV 500 ml 500 ml IV at 1 bolus once; to be given as a bolus over 30 cp4 minutes Volume: 500 ml; Route: IV; Rate: 1 bolus; Site: right antecubital; 06:00 Follow up: IV Status: Completed infusion cp4 Medication: 04:32 VIS not applicable for this client. cp4 Outcome: 05:48 Discharge ordered by . sp4 05:58 Discharged to home ambulatory, cp4 05:58 Condition: stable 05:58 Discharge instructions given to patient, family, Instructed on discharge instructions, follow up and referral plans. medication usage, Demonstrated understanding of instructions, follow-up care, medications, Prescriptions given X 2, 06:11 Patient left the ED. cp4 Signatures: Ana M Sanches Reg Reg mr ArriagaKeira, RN RN jj7 Timothy Calderon MD MD sp4 Chelsie Thomas cp4
--- NOTE | 2025-05-26 05:49 | EDPHYS ---
Physician Documentation [facility] Name: Zeyad Alfonso Age: 34 yrs Sex: Male : 1990 Arrival Date: 05/26/2025 Time: 03:54 Bed 17 Private MD: ED Physician Timothy Calderon HPI: 05/26 03:57 This 34 yrs old Male presents to ER via Unassigned with complaints of High sp4 Blood Pressure, Headache. 20:26 34-year-old male presents with complaint of elevated blood pressure headache and sp4 feeling unwell. Patient states he was off his blood pressure medications for the past 2 months. Historical: - Allergies: 04:14 No Known Allergies; jj7 - PMHx: 04:14 Hyperlipidemia; Hypertensive disorder; jj7 - PSHx: 04:14 Chin (Broken); jj7 - Immunization history:: Adult Immunizations up to date. - Infectious Disease History:: Denies. - Social history:: Smoking status: Reported history of juuling and/or vaping. Patient uses alcohol, weekly. Patient/guardian denies using street drugs, IV drugs. - Family history:: not pertinent. ROS: 20:27 Constitutional: Negative for fever, chills, and weight loss, positive headache, sp4 positive blurry vision, positive tingling in the Right hand 20:27 All other systems are negative, Exam: 20:27 Constitutional: This is a well developed, well nourished patient who is awake, alert, sp4 and in no acute distress. Head/Face: Normocephalic, atraumatic. Eyes: Pupils equal round and reactive to light, extra-ocular motions intact. Lids and lashes normal. Conjunctiva and sclera are not injected. Cornea within normal limits. Periorbital areas with no swelling, redness, or edema. ENT: Nares patent. No nasal discharge, no septal abnormalities noted. Tympanic membranes are normal and external auditory canals are clear. Oropharynx with no redness, swelling, or masses, exudates, or evidence of obstruction, uvula midline. Mucous membranes moist. Neck: Trachea midline, no thyromegaly or masses palpated, and no cervical lymphadenopathy. Supple, full range of motion without nuchal rigidity, or vertebral point tenderness. Chest/axilla: Normal chest wall appearance and motion. Nontender with no deformity. No lesions are appreciated. Cardiovascular: Regular rate and rhythm with a normal S1 and S2. No gallops, murmurs, or rubs. No pulse deficits. Respiratory: Lungs have equal breath sounds bilaterally, clear to auscultation and percussion. No rales, rhonchi or wheezes noted. No increased work of breathing, no retractions or nasal flaring. Abdomen/GI: Soft, with normal bowel sounds. No distension or tympany. No guarding or rebound. No evidence of tenderness throughout. Back: No spinal tenderness. No costovertebral tenderness. Skin: Warm, dry with normal turgor. Normal color with no rashes, no lesions, and no evidence of cellulitis. MS/ Extremity: Pulses equal, no cyanosis. Neurovascular intact. Full, normal range of motion. Neuro: Awake and alert, GCS 15, oriented to person, place, time, and situation. Cranial nerves II-XII grossly intact. Motor strength 5/5 in all extremities. Sensory grossly intact. Psych: Awake, alert, with orientation to person, place and time. Behavior, mood, and affect are within normal limits 20:27 ECG was reviewed by the Attending Physician. EKG at 0 423 normal sinus rhythm rate 68 otherwise normal EKG Vital Signs: 04:00 BP 160 / 102; Pulse 84; Resp 18; Pulse Ox 99% ; Weight 90.26 kg; Height 5 ft. 7 in. ; jj7 Pain 4/10; 05:13 BP 131 / 89; Pulse 64; Resp 18; Pulse Ox 96% ; cp4 05:56 BP 121 / 91; Pulse 61; Resp 18; Pulse Ox 98% ; cp4 04:00 Body Mass Index 31.17 (90.26 kg, 170.18 cm) jj7 04:00 Pain Scale: Adult jj7 Catrina Coma Score: 20:27 Eye Response: spontaneous(4). Motor Response: obeys commands(6). Verbal Response: sp4 oriented(5). Total: 15. MDM: 03:59 Medical Screening Exam initiated sp4 20:30 Differential diagnosis: hypertensive crisis, Malignant HTN, Acute hypertensive episode sp4 secondary to noncompliance. Data reviewed: vital signs, nurses notes, old medical records, lab test result(s), EKG. Consideration of Admission/Observation Escalation of care including admission/observation considered. ED course: Headache completely resolved. Patient feels better. Will prescribe patient his metoprolol for the next 90 days. Stable for discharge home. 05/26 04:06 Order name: CBC with Diff; Complete Time: 05: sp4 05/26 04:06 Order name: CMP; Complete Time: 05:21 sp4 05/26 04:06 Order name: IV Saline Lock; Complete Time: 04:32 sp4 05/26 04:06 Order name: Labs collected and sent; Complete Time: 04:32 sp4 EC: Rate is 68 beats/min. Rhythm is regular, Normal Sinus Rhythm. QRS Gordon is Normal. ND sp4 interval is normal. QRS interval is normal. QT interval is normal. No Q waves. T waves are Normal. No ST changes noted. Clinical impression: Normal ECG. Interpreted by me. Reviewed by me. Administered Medications: 04:31 Drug: Metoprolol PO 25 mg PO once Route: PO; cp4 05:22 Follow up: Response: No adverse reaction; Blood pressure is lowered cp4 04:32 Drug: Ketorolac IVP 30 mg IVP once Route: IVP; Site: right antecubital; cp4 05:22 Follow up: Response: No adverse reaction; Pain is decreased cp4 04:32 Drug: metoCLOPramide IVP 10 mg IVP once; over 1 to 2 minutes Route: IVP; Site: right cp4 antecubital; 05:22 Follow up: Response: No adverse reaction cp4 04:32 Drug: diphenhydrAMINE IVP 50 mg IVP once Route: IVP; Site: right antecubital; cp4 05:22 Follow up: Response: No adverse reaction cp4 04:32 Drug: NS 0.9% IV 500 ml 500 ml IV at 1 bolus once; to be given as a bolus over 30 cp4 minutes Volume: 500 ml; Route: IV; Rate: 1 bolus; Site: right antecubital; 06:00 Follow up: IV Status: Completed infusion cp4 Disposition Summary: 05/26/25 05:48 Discharge Ordered Notes: Location: Home sp4 Problem: new sp4 Symptoms: have improved sp4 Condition: Stable sp4 Diagnosis - Acute migraine headache, elevated blood pressure, noncompliance with medication sp4 abrasion - Essential (primary) hypertension sp4 Followup: sp4 - With: Manrique, Dany, MD - When: 7 - 10 days - Reason: Recheck today's complaints Discharge Instructions: - Discharge Summary Sheet sp4 - Migraine Headache, [id number] sp4 Forms: - Patient Portal Instructions sp4 - Work release form cp4 Prescriptions: - Fioricet 50-300-40 mg Oral capsule - take 1 capsule ORAL route 3 times per day as needed for pain; 30 capsule; sp4 Refills: 0, Product Selection Permitted - metoprolol succinate 25 mg Oral Tablet, Extended Release 24 hr - take 1 tablet ORAL route daily; 90 tablet; Refills: 0, Product Selection sp4 Permitted Signatures: Dispatcher [employer] Keira Cha RN RN jj7 Timothy Calderon MD MD sp4 Chelsie Thomas cp4 Corrections: (The following items were deleted from the chart) 04:07 04:07 CBC+H.LAB.BRZ ordered. EDMS EDMS 04:07 04:07 COMPREHENSIVE METABOLIC PANEL+C.LAB.BRZ ordered. EDMS EDMS 20:28 20:27 Constitutional: Negative for fever, chills, and weight loss, positive headache, sp4 positive blurry vision, positive tingling in the left hand sp4
[2025-05-26 13:31] VITALS: BP 121/91; O2SAT 98
== END 2025-05-26 06:11 | disposition home or self-care (01) ==
LOC: ER 03:54
DX: G43.909 Migraine, unspecified, not intractable, without status migrainosus (principal); I10 Essential (primary) hypertension; Z91.148 Patient's other noncompliance with medication regimen for other reason
CPT/HCPCS: 36415; 80053; 85025; 93005; 96361; 96374; 96375; 99284; J1200; J1885; J2765; J7040